=== PATIENT | female | born 1955 | race Caucasian/White ===

== ENCOUNTER 2017-12-27 11:54 | Emergency (ER) | payer OTHER ==
--- OUTSIDE RECORDS SUMMARY | 2017-12-27 11:57 | XMS REPORT | Clinical Summary ---
:1955 Author Organization [facility] Address [address] [place] [id number] Care Team Providers Name Role Phone Esteal Patel Primary Care Provider Allergies Not on File Current Medications No known medications Active Problems No known active problems Encounters Date Type Specialty Care Team Description 01/10/2017 Office Visit General Surgery Alli Meier Constipation, unspecified constipation type (Primary Dx); MD Emir Pancreas (digestive gland) works poorly; Esophageal abnormality; Small bowel obstruction; Nausea and vomiting, intractability of vomiting not specified, unspecified vomiting type after 12/26/2016 Social History Tobacco Use Types Packs/Day Years Used Date Never Assessed Sex Assigned at Date Recorded Not on file Last Filed Vital Signs Not on file Plan of Treatment Health Maintenance Due Date Last Done Comments PAP SMEAR 01/29/1976 COLONOSCOPY 2005 MAMMOGRAM 2005 ZOSTER VACCINE 2015 INFLUENZA VACCINE 04/09/2018 Results Not on fileafter 12/26/2016 Insurance Payer Benefit Plan / Group Subscriber ID Type Phone Address MEDICARE MEDICARE PART A AND B xxxxxxxxxx Medicare [place], [place] Home: [address] [phone] [place], [place] [phone]
--- NOTE | 2017-12-27 12:54 | EKG ---
Test Date: 2017-12-27 Test Time: 12:38:47 Steaming Machine Operator: SALONI MEASUREMENT RESULTS: Intervals: Rate: 59 GA: 172 QRSD: 86 QT: 434 QTc: 429 [place]: P: 63 GA: 172 QRS: -32 T: 15 INTERPRETIVE STATEMENTS: Sinus bradycardia Left axis deviation Abnormal ECG Compared to ECG 07/23/2016 16:35:04 Sinus rhythm no longer present Electronically Signed On 12-27-17 12:53:40 CDT by Pacheco Ruelas
[2017-12-27 13:14] LABS: Absolute Monocytes 0.3 K/uL (0.1-1.3); Absolute Neutrophil 3.2 K/uL (1.8-8.0); Basophils % 0.4 % (0-1.3); Hematocrit 44.6 % (36.0-45.0); Lymphocytes % 36.5 % (15.3-44.8); MCH 29.7 pg (27.0-35.0); MCV 86.1 fL (80-100); MPV 9.3 fL (7.6-11.3); Monocytes % 5.4 % (3.3-12.3); RBC Red Blood Cell Count 5.17 M/uL (3.86-4.86)
[2017-12-27 13:25] LABS: Potassium 3.4 mEq/L (3.6-5.0)
[2017-12-27 13:31] LABS: Albumin 4.5 g/dL (3.2-5.5); Bilirubin Direct 0.1 mg/dL (0-0.2); Bilirubin Total 0.4 mg/dL (0.3-1.2); Protein, Total 7.3 g/dL (6.0-8.3)
--- NOTE | 2017-12-27 13:33 | RAD REPORT ---
EXAM DESCRIPTION: Michael Single View12/27/2017 1:25 pm CLINICAL HISTORY: Chest pain COMPARISON: none FINDINGS: The lungs appear clear of acute infiltrate. The heart is normal size IMPRESSION: No acute abnormalities displayed
--- NOTE | 2017-12-27 16:42 | ER ---
Nurse's Notes [facility] Name: Carine Sheikh Age: 62 yrs Sex: Female : 1955 Arrival Date: 12/27/2017 Time: 11:58 Bed 7 Private MD: Diagnosis: Chest pain, unspecified Presentation: 12/27 12:22 Presenting complaint: Patient states: Worsening chest pain that radiates to left arm hb and mild SOB x 3 days. Transition of care: patient was not received from another setting of care. Onset of symptoms is unknown. Care prior to arrival: None. 12:22 Method Of Arrival: Ambulatory hb 12:22 Acuity: AZEEM 3 hb 14:26 Initial Sepsis Screen: Does the patient meet any 2 criteria? No. Patient's initial tw2 sepsis screen is negative. Does the patient have a suspected source of infection? No. Patient's initial sepsis screen is negative. Triage Assessment: 14:38 Respiratory: Reports shortness of breath Onset: The symptoms/episode began/occurred 2-3 tw2 days, the patient has mild shortness of breath. 14:39 General: Appears in no apparent distress. comfortable. tw2 Historical: - Allergies: 12:25 ACETAMINOPHEN; hb 12:25 butorphanol tartrate; hb 12:25 Ciprofloxacin; hb 12:25 Codeine; hb 12:25 Droperidol; hb 12:25 GUAIFENESIN; hb 12:25 hydrocodone bitartrate; hb 12:25 Iodine and Iodide Containing Products; hb 12:25 meperidine HCl; hb 12:25 Morphine; hb 12:25 PENICILLINS; hb 12:25 prochlorperazine Edisylate; hb 12:25 Prochlorperazine Maleate; hb 12:25 PROPOXYPHENE; hb 12:25 QUINOLONES; hb 12:25 Sulfa (Sulfonamide Antibiotics); hb - PMHx: 12:25 Anemia; barretts espophagus; BREAST CA; Hypertension; Hypokalemia; MRSA; SBO; hb - PSHx: 12:25 Thyroidectomy; Separation of liver and stomach; Lymph node removed from right side of hb neck; double mastectomy; partial removal of intestines and colon; - Immunization history:: Adult Immunizations up to date. - Social history:: Smoking status: Patient/guardian denies using tobacco. Screenin:39 Abuse screen: Denies threats or abuse. Nutritional screening: No deficits noted. tw2 Tuberculosis screening: No symptoms or risk factors identified. Fall Risk None identified. Assessment: 12:30 General: Appears in no apparent distress. well groomed, Behavior is calm, cooperative, tw2 appropriate for age. Pain: Pain radiates to left arm. Neuro: Level of Consciousness is awake, alert, obeys commands, Oriented to person, place, time, situation. Cardiovascular: Reports chest pain, Rhythm is regular. Respiratory: Airway is patent Respiratory effort is even, unlabored, Respiratory pattern is regular, symmetrical, Breath sounds are clear bilaterally. GI: No signs and/or symptoms were reported involving the gastrointestinal system. : No signs and/or symptoms were reported regarding the genitourinary system. EENT: No signs and/or symptoms were reported regarding the EENT system. Derm: No signs and/or symptoms reported regarding the dermatologic system. Musculoskeletal: Range of motion: intact in all extremities. 14:37 Reassessment: Patient appears in no apparent distress at this time. No changes from tw2 previously documented assessment. Patient and/or family updated on plan of care and expected duration. Pain level reassessed. Patient is alert, oriented x 3, equal unlabored respirations, skin warm/dry/pink. 15:30 Reassessment: Patient appears in no apparent distress at this time. No changes from tw2 previously documented assessment. Patient and/or family updated on plan of care and expected duration. Pain level reassessed. Patient is alert, oriented x 3, equal unlabored respirations, skin warm/dry/pink. 16:37 Reassessment: Patient appears in no apparent distress at this time. No changes from tw2 previously documented assessment. Patient and/or family updated on plan of care and expected duration. Pain level reassessed. Patient is alert, oriented x 3, equal unlabored respirations, skin warm/dry/pink. Vital Signs: 12:23 BP 130 / 76; Pulse 68; Resp 16; Temp 97.9; Pulse Ox 100% on R/A; Weight 72.57 kg; hb Height 5 ft. 2 in. (157.48 cm); Pain 6/10; 13:30 BP 153 / 89; Pulse 58; Resp 17; Pulse Ox 99% on R/A; tw2 14:37 BP 167 / 91 RL; Pulse 68; Resp 21; Pulse Ox 99% on R/A; tw2 15:30 BP 138 / 88; Pulse 58; Resp 17; Pulse Ox 99% on R/A; tw2 16:36 BP 146 / 93; Pulse 63; Resp 16; Pulse Ox 99% on R/A; tw2 16:58 BP 146 / 93; Pulse 66; Resp 20; Pulse Ox 99% on R/A; tw2 12:23 Body Mass Index 29.26 (72.57 kg, 157.48 cm) hb ED Course: 11:58 Patient arrived in ED. sb2 12:08 Daniel Blackburn MD is Attending Physician. kdr 12:23 Triage completed. hb 12:25 Arm band placed on right wrist. hb 12:29 Allan Duarte PA is PHCP. jr8 12:30 Bed in low position. Call light in reach. Adult w/ patient. youth nutritional monitor on. Pulse tw2 ox on. NIBP on. Warm blanket given. 12:45 Inserted saline lock: 24 gauge antecubital area, using aseptic technique. ,using tw2 aseptic technique. BRAEDEN Yanes Blood collected. 12:55 X-ray completed. Portable x-ray completed in exam room. Patient tolerated procedure ag1 well. 12:57 XRAY Chest (1 view) In Process Unspecified. EDMS 14:25 Dahiana Zuniga, RN is Primary Nurse. tw2 14:39 No provider procedures requiring assistance completed. tw2 16:08 Troponin (emerg Dept Use Only) Sent. tw2 16:59 IV discontinued, intact, bleeding controlled, No redness/swelling at site. Pressure tw2 dressing applied. Administered Medications: No medications were administered Outcome: 16:41 Discharge ordered by . jr8 16:59 Discharged to home ambulatory, with significant other. tw2 16:59 Condition: stable 16:59 Discharge instructions given to patient, significant other, Instructed on discharge instructions, follow up and referral plans. Demonstrated understanding of instructions, follow-up care. 17:04 Patient left the ED. tw2 Signatures: Dispatcher [employer] EDNM Daniel Blackburn MD MD [facility] Allan Duarte PA PA jr8 Marguerite Nielsen ag1 Ernestine Burroughs RN RN Dahiana Zuniga RN RN tw2 Gladys Rudolph sb2 Corrections: (The following items were deleted from the chart) 14:39 14:38 Respiratory: Reports shortness of breath the patient has mild shortness of breath tw2 tw2
--- NOTE | 2017-12-27 16:42 | EDPHYS ---
Physician Documentation [facility] Name: Carine Sheikh Age: 62 yrs Sex: Female : 1955 Arrival Date: 12/27/2017 Time: 11:58 Bed 7 Private MD: ED Physician Daniel Blackburn HPI: 12/27 13:30 This 62 yrs old Female presents to ER via Ambulatory with complaints of chest jr8 pain with radiation. Historical: - Allergies: 12:25 ACETAMINOPHEN; hb 12:25 butorphanol tartrate; hb 12:25 Ciprofloxacin; hb 12:25 Codeine; hb 12:25 Droperidol; hb 12:25 GUAIFENESIN; hb 12:25 hydrocodone bitartrate; hb 12:25 Iodine and Iodide Containing Products; hb 12:25 meperidine HCl; hb 12:25 Morphine; hb 12:25 PENICILLINS; hb 12:25 prochlorperazine Edisylate; hb 12:25 Prochlorperazine Maleate; hb 12:25 PROPOXYPHENE; hb 12:25 QUINOLONES; hb 12:25 Sulfa (Sulfonamide Antibiotics); hb - PMHx: 12:25 Anemia; barretts espophagus; BREAST CA; Hypertension; Hypokalemia; MRSA; SBO; hb - PSHx: 12:25 Thyroidectomy; Separation of liver and stomach; Lymph node removed from right side of hb neck; double mastectomy; partial removal of intestines and colon; - Immunization history:: Adult Immunizations up to date. - Social history:: Smoking status: Patient/guardian denies using tobacco. ROS: 16:40 Eyes: Negative for injury, pain, redness, and discharge, ENT: Negative for injury, jr8 pain, and discharge, Neck: Negative for injury, pain, and swelling, Respiratory: Negative for shortness of breath, cough, wheezing, and pleuritic chest pain, Abdomen/GI: Negative for abdominal pain, nausea, vomiting, diarrhea, and constipation, Back: Negative for injury and pain, MS/Extremity: Negative for injury and deformity, Skin: Negative for injury, rash, and discoloration, Neuro: Negative for headache, weakness, numbness, tingling, and seizure. 16:40 Cardiovascular: Positive for chest pain, Negative for edema, orthopnea, palpitations, paroxysmal nocturnal dyspnea. Exam: 16:40 Eyes: Pupils equal round and reactive to light, extra-ocular motions intact. Lids and jr8 lashes normal. Conjunctiva and sclera are non-icteric and not injected. Cornea within normal limits. Periorbital areas with no swelling, redness, or edema. ENT: Nares patent. No nasal discharge, no septal abnormalities noted. Tympanic membranes are normal and external auditory canals are clear. Oropharynx with no redness, swelling, or masses, exudates, or evidence of obstruction, uvula midline. Mucous membranes moist. Neck: Trachea midline, no thyromegaly or masses palpated, and no cervical lymphadenopathy. Supple, full range of motion without nuchal rigidity, or vertebral point tenderness. No Meningismus. Cardiovascular: Regular rate and rhythm with a normal S1 and S2. No gallops, murmurs, or rubs. Normal PMI, no JVD. No pulse deficits. Respiratory: Lungs have equal breath sounds bilaterally, clear to auscultation and percussion. No rales, rhonchi or wheezes noted. No increased work of breathing, no retractions or nasal flaring. Abdomen/GI: Soft, non-tender, with normal bowel sounds. No distension or tympany. No guarding or rebound. No evidence of tenderness throughout. Back: No spinal tenderness. No costovertebral tenderness. Full range of motion. Skin: Warm, dry with normal turgor. Normal color with no rashes, no lesions, and no evidence of cellulitis. MS/ Extremity: Pulses equal, no cyanosis. Neurovascular intact. Full, normal range of motion. Neuro: Awake and alert, GCS 15, oriented to person, place, time, and situation. Cranial nerves II-XII grossly intact. Motor strength 5/5 in all extremities. Sensory grossly intact. Cerebellar exam normal. Normal gait. Vital Signs: 12:23 BP 130 / 76; Pulse 68; Resp 16; Temp 97.9; Pulse Ox 100% on R/A; Weight 72.57 kg; hb Height 5 ft. 2 in. (157.48 cm); Pain 6/10; 13:30 BP 153 / 89; Pulse 58; Resp 17; Pulse Ox 99% on R/A; tw2 14:37 BP 167 / 91 RL; Pulse 68; Resp 21; Pulse Ox 99% on R/A; tw2 15:30 BP 138 / 88; Pulse 58; Resp 17; Pulse Ox 99% on R/A; tw2 16:36 BP 146 / 93; Pulse 63; Resp 16; Pulse Ox 99% on R/A; tw2 16:58 BP 146 / 93; Pulse 66; Resp 20; Pulse Ox 99% on R/A; tw2 12:23 Body Mass Index 29.26 (72.57 kg, 157.48 cm) hb MDM: 12:37 Patient medically screened. 8 16:40 Data reviewed: vital signs, nurses notes, lab test result(s), EKG, radiologic studies, jr8 plain films, and as a result, I will discharge patient. Data interpreted: Pulse oximetry: on room air is 99 %. Interpretation: normal. Counseling: I had a detailed discussion with the patient and/or guardian regarding: the historical points, exam findings, and any diagnostic results supporting the discharge/admit diagnosis, lab results, radiology results, the need for outpatient follow up, a stevedoring supervisor, to return to the emergency department if symptoms worsen or persist or if there are any questions or concerns that arise at home. 16:40 Special discussion: Based on the patient's history, exam, and Dx evaluation, there is jr8 no indication for emergent intervention or inpatient Tx. It is understood by the patient/guardian that if the Sx's persist or worsen they need to return immediately for re-evaluation. 12/27 12:37 Order name: Basic Metabolic Panel [facility] 12/27 12:37 Order name: BNP [facility] 12/27 12:37 Order name: CBC with Diff 12/27 12:37 Order name: LFT's; Complete Time: 13:44 [facility] 12/27 12:37 Order name: Magnesium; Complete Time: 13:44 [facility] 12/27 12:37 Order name: PT-INR; Complete Time: 13:22 [facility] 12/27 12:37 Order name: Troponin (emerg Dept Use Only); Complete Time: 13:44 [facility] 12/27 12:37 Order name: XRAY Chest (1 view); Complete Time: 13:44 [facility] 12/27 12:37 Order name: EKG; Complete Time: 12:37 [facility] 12/27 12:37 Order name: Cardiac monitoring; Complete Time: 16:09 [facility] 12/27 12:37 Order name: Basic Metabolic Panel; Complete Time: 13:44 [facility] 12/27 12:37 Order name: BNP B-Type Natriuretic Peptide; Complete Time: 13:44 [facility] 12/27 12:37 Order name: CBC with Automated Diff; Complete Time: 13:22 [facility] 12/27 16:04 Order name: Troponin (emerg Dept Use Only); Complete Time: 16:40 [facility] 12/27 12:37 Order name: EKG - Nurse/Tech; Complete Time: 16:38 [facility] 12/27 12:37 Order name: IV Saline Lock; Complete Time: 16:20 [facility] 12/27 12:37 Order name: Labs collected and sent; Complete Time: 16:20 [facility] 12/27 12:37 Order name: O2 Per Protocol; Complete Time: 12:54 [facility] 12/27 12:37 Order name: O2 Sat Monitoring; Complete Time: 12:54 jr Administered Medications: No medications were administered Disposition: 12/27/17 16:41 Discharged to Home. Impression: Chest pain, unspecified. - Condition is Stable. - Discharge Instructions: Nonspecific Chest Pain. - Medication Reconciliation Form, Thank You Letter, Antibiotic Education, Prescription Opioid Use form. - Follow up: Private Physician; When: 1 - 2 days; Reason: Recheck today's complaints, Continuance of care, Re-evaluation by your physician. - Problem is new. - Symptoms have improved. Addendum: 01/11/2018 19:47 Co-signature as Attending Physician, Daniel Blackburn MD I agree with the assessment and k dr plan of care. Signatures: Dispatcher [employer] [facility] Daniel Blackburn MD MD [facility] Allan Duarte PA PA jr8 Ernestine Burroughs, RN RN Dahiana Mejia RN RN tw2 Corrections: (The following items were deleted from the chart) 12/27 17:04 16:41 12/27/2017 16:41 Discharged to Home. Impression: Chest pain, unspecified. tw2 Condition is Stable. Forms are Medication Reconciliation Form, Thank You Letter, Antibiotic Education, Prescription Opioid Use. Follow up: Private Physician; When: 1 - 2 days; Reason: Recheck today's complaints, Continuance of care, Re-evaluation by your physician. Problem is new. Symptoms have improved. jr8
[2017-12-27 17:09] VITALS: TEMP 97.9
[2017-12-27 17:10] VITALS: O2SAT 99
[2017-12-27 17:14] VITALS: BP 146/93
== END 2017-12-27 17:04 | disposition home or self-care (01) ==
LOC: ER 11:54
DX: R07.9 Chest pain, unspecified (principal); Z88.6 Allergy status to analgesic agent; Z88.0 Allergy status to penicillin; Z88.2 Allergy status to sulfonamides; Z88.1 Allergy status to other antibiotic agents; Z91.09 Other allergy status, other than to drugs and biological substances; Z88.8 Allergy status to other drugs, medicaments and biological substances
CPT/HCPCS: 36415; 71045; 80048; 80076; 83735; 83880; 84484; 85025; 85610; 93005; 99284

== ENCOUNTER 2018-10-23 12:15 | Day surgery (SDC) | payer OTHER ==
[2018-10-22 16:16] LABS: Absolute Lymphocytes (CBC) 1.5 K/uL (0.7-4.9); Absolute Monocytes 0.4 K/uL (0.1-1.3); Absolute Neutrophil 4.4 K/uL (1.8-8.0); Basophils % 0.3 % (0-1.3); Eosinophils % 1.3 % (0-4.4); Hematocrit 40.6 % (36.0-45.0); Lymphocytes % 23.1 % (15.3-44.8); MPV 9.4 fL (7.6-11.3); Monocytes % 5.8 % (3.3-12.3); RBC Red Blood Cell Count 4.63 M/uL (3.86-4.86)
[2018-10-22 16:21] LABS: Urine Appearance CLEAR; Urine Bilirubin NEGATIVE (NEG); Urine Blood 1+ (NEG); Urine Color YELLOW; Urine Glucose NEGATIVE (NEG); Urine Protein NEGATIVE (NEG); Urine Specific Gravity 1.015 (1.005-1.030); Urine Urobilinogen 0.2 mg/dL (0.2-1.0); Urine pH 5.5 (5.0-7.0)
--- NOTE | 2018-10-22 16:26 | RAD REPORT ---
EXAM DESCRIPTION: RAD - Chest Pa And Lat (2 Views) - 10/22/2018 4:21 pm CLINICAL HISTORY: Preop for surgery Chest pain. COMPARISON: Chest Single View dated 12/27/2017; Abdomen 1 View (KUB) dated 12/12/2016; Abdomen 1 View ( KUB) dated 11/16/2016; Abdomen 1 View (KUB) dated 11/14/2016 FINDINGS: The lungs are clear. The heart is normal in size. No displaced fractures. Left axillary no de dissection clips. IMPRESSION: No acute or concerning finding suspected.
[2018-10-22 16:37] LABS: Urine Microscopic Reflex ORDER UMIC
[2018-10-22 16:50] LABS: Urine Bacteria <20 /HPF (<20); Urine Culture Reflex Order NOT NEEDED
--- NOTE | 2018-10-22 20:32 | EKG ---
Test Date: 2018-10-22 Test Time: 16:05:14 Founder And Ceo: JACE MEASUREMENT RESULTS: Intervals: Rate: 66 W[place]: 168 QRSD: 80 QT: 422 QTc: 442 [place]: P: 59 WY: 168 QRS: -36 T: 32 INTERPRETIVE STATEMENTS: Normal sinus rhythm Left axis deviation Abnormal ECG Compared to ECG 12/27/2017 12:38:47 Sinus bradycardia no longer present Electronically Signed On 10-22-18 20:31:32 STRATEGIC SOURCING CONSULTANT by Pacheco Ruelas
--- OUTSIDE RECORDS SUMMARY | 2018-10-23 12:17 | XMS REPORT | Clinical Summary ---
:1955 Author Organization [facility] Address [address] [place] [address] Care Team Providers Name Role Phone Estela Patel Primary Care Provider Allergies Not on File Medications No known medications Active Problems No known active problems Encounters Date Type Specialty Care Team Description 03/24/2018 Orders Only Orthopedic Surgery Adriana Sebastian MA Acute pain of left knee (Primary Dx) after 10/22/2017 Social History Tobacco Use Types Packs/Day Years Used Date Never Assessed Sex Assigned at Date Recorded Not on file Job Start Date Occupation Industry Not on file Not on file Not on file Travel History Travel Start Travel End No recent travel history available. Last Filed Vital Signs Not on file Plan of Treatment Health Maintenance Due Date Last Done Comments CERVICAL CANCER SCREENING 01/29/1976 BREAST CANCER SCREENING 2005 COLON CANCER SCREENING 2005 SHINGLES VACCINES (1 of 2) 2005 INFLUENZA VACCINE 04/09/2018 Results Not on fileafter 10/22/2017 Insurance Payer Benefit Plan / Group Subscriber ID Type Phone Address MEDICARE MEDICARE PART A AND B xxxxxxxxxx Medicare [place], [place] Advance Directives Patient has advance care planning documents on file. For more information, please contact:[id number] [place] [address]
[2018-10-23] MEDS ORDERED: CIPROFLOXACIN 400mg IV 400 MG/200 ML BAG IV ONE (12:30)
[2018-10-23] MEDS ORDERED: Ringers Lactate 1,000 ML IV ONE (12:30)
[2018-10-23] MEDS ORDERED: PROPOFOL 200 MG/20 ML VIAL IV ONE (12:41)
[2018-10-23] MEDS ORDERED: MIDAZOLAM HCL 2 MG/2 ML INJ ONE (12:41)
[2018-10-23] MEDS ORDERED: FENTANYL CITR 100 MCG/2 ML ONE ×2 (12:42→14:00)
[2018-10-23] MEDS ORDERED: LIDOCAINE 1% MPF 2 ML AMPULE ONE (12:43)
[2018-10-23] MEDS ORDERED: NA CIT/CITRIC AC 30 ML ORAL UDC ONE (12:47)
[2018-10-23] MEDS ORDERED: FAMOTIDINE 20 MG/2 ML VIAL IV ONE (13:04)
[2018-10-23 15:00] VITALS: BP 155/68; TEMP 98.1; O2SAT 96
--- NOTE | 2018-10-24 07:45 | OP ---
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 Procedure Performed: Excision, recurrent ganglion. Anesthesia: General. Procedure In Detail: After satisfactory induction of general anesthesia, left hand was prepped. Dry sterile drapes applied in the usual manner. Arm was elevated, exsanguinated with Esmarch, and tourn iquet was inflated to 250 mmHg. outlined a V-shaped incision. Dissection proceeded down o albert the flexor surface of the right middle finger ulnar side. the digital nerve and arter y were identified and draped over the tumor. They were retracted ulnarly and the tumor radially. Th e tumor was taken down to the origin of the flexor sheath. Part of the flexor sheath was removed wit h the tumor. was limited. Tourniquet released. Electrocautery was used for hemostasis. Wound closed with 4-0 Prolene in vertical mattress and dressed with Xeroform, 2-inch Teresa. The pat ient tolerated the procedure well and returned to recovery. ARUNA/JOSE Voice ID: [id number] Report ID: [id number]
== END 2018-10-23 15:25 | disposition home or self-care (01) ==
LOC: OR 12:15
PROVIDERS: ATTEND Specialist
PROC: 0LB70ZZ Excision of Right Hand Tendon, Open Approach (ICD-10-PCS; principal; 2018-10-23 13:30)
DX: M67.441 Ganglion, right hand (principal); I10 Essential (primary) hypertension; E07.9 Disorder of thyroid, unspecified; K21.9 Gastro-esophageal reflux disease without esophagitis
CPT/HCPCS: 26160; 93005; 85025; 36415; 88304; 71046; J2704; J2250; J3010 ×2; J2001; J0744; 81003; 81015

== ENCOUNTER 2018-11-11 08:16 | Day surgery (SDC) | payer OTHER ==
[~2018-11-11 08:16] MED LIST: FENTANYL CITR 250 MCG/5 ML ONE; GLYCOPYRROLATE 0.2 MG/ML SYR ONE; LIDOCAINE 2% MPF 5 ML VIAL ONE; MIDAZOLAM HCL 2 MG/2 ML INJ ONE; NEOSTIGMINE 1 MG/ML -10 ML VIAL ONE; PROPOFOL 200 MG/20 ML VIAL IV ONE; ROCURONIUM 50 MG/5 ML VIAL IV ONE
--- OUTSIDE RECORDS SUMMARY | 2018-11-11 08:20 | XMS REPORT | Clinical Summary ---
:1955 Author Organization [facility] Address [address] [place] [address] Care Team Providers Name Role Phone Estela Patel Primary Care Provider Allergies Not on File Medications No known medications Active Problems No known active problems Encounters Date Type Specialty Care Team Description 03/24/2018 Orders Only Orthopedic Surgery Adriana Sebastian MA Acute pain of left knee (Primary Dx) after 11/10/2017 Social History Tobacco Use Types Packs/Day Years [...] 2005 COLON CANCER SCREENING 2005 SHINGLES VACCINES (#1) 2005 INFLUENZA VACCINE 04/09/2018 Results Not on fileafter 11/10/2017 Insurance Payer Benefit Plan / Group Subscriber ID Type Phone Address MEDICARE MEDICARE PART A AND B xxxxxxxxxx Medicare [place], [place] Advance Directives Patient has advance care planning documents on file. For more information, please contact:[place] [phone] [place] [address]
[2018-11-11 08:28] LABS: Absolute Lymphocytes (CBC) 1.4 K/uL (0.7-4.9); Absolute Monocytes 0.3 K/uL (0.1-1.3); Basophils % 0.4 % (0-1.3); Eosinophils % 1.5 % (0-4.4); Hematocrit 44.1 % (36.0-45.0); Lymphocytes % 28.6 % (15.3-44.8); MPV 9.3 fL (7.6-11.3); RBC Red Blood Cell Count 5.11 M/uL (3.86-4.86)
[2018-11-11 08:29] LABS: Urine Appearance CLEAR; Urine Bilirubin NEGATIVE (NEG); Urine Blood 1+ (NEG); Urine Color YELLOW; Urine Glucose NEGATIVE (NEG); Urine Protein NEGATIVE (NEG); Urine Urobilinogen 0.2 mg/dL (0.2-1.0); Urine pH 6.5 (5.0-7.0)
[2018-11-11 08:31] LABS: Urine Microscopic Reflex ORDER UMIC
[2018-11-11] MEDS ORDERED: CLINDAMYCIN INJ 300 MG in NA CHLORIDE 0.9% 50 ML IV ONE (08:45)
[2018-11-11] MEDS ORDERED: Ringers Lactate 1,000 ML IV ONE ×2 (08:53→12:27)
[2018-11-11 08:55] LABS: Urine Bacteria <20 /HPF (<20)
[2018-11-11 08:56] LABS: Urine Amorphous Sediment 1+ /HPF (NONE SEEN); Urine Culture Reflex Order NOT NEEDED
[2018-11-11] MEDS ORDERED: NA CIT/CITRIC AC 30 ML ORAL UDC ONE (09:19)
[2018-11-11] MEDS ORDERED: SCOPOLAMINE HYDROBROMIDE PATCH TD ONE (09:21)
[2018-11-11] MEDS ORDERED: FAMOTIDINE 20 MG/2 ML VIAL IV ONE (10:00)
[2018-11-11] MEDS ORDERED: NS 0.9% VIAL 20 ML ONE (10:32)
[2018-11-11] MEDS ORDERED: GENTAMICIN SULF 80 MG/2ML INJ ONE (10:33)
[2018-11-11] MEDS ORDERED: BACITRACIN 50000 UNIT VIAL ONE (10:33)
[2018-11-11] MEDS ORDERED: CEFAZOLIN SODIUM 1 GM/VIAL ONE (10:33)
[2018-11-11] MEDS: FENTANYL CITR 100 MCG/2 ML ONE ×2 (14:18→14:35)
[2018-11-11] MEDS ORDERED: Mastisol Adhesive Liq ONE (14:23)
[2018-11-11] MEDS ORDERED: KETOROLAC 30 MG/ML INJ ONE (14:30)
[2018-11-11] MEDS ORDERED: ACETAMINOPHEN 500 MG TAB ONE (16:58)
[2018-11-11 17:16] VITALS: BP 115/46; TEMP 99.3; O2SAT 95
--- NOTE | 2018-11-12 00:58 | OP ---
Surgeon: Be Montoya MD Assistant Purchasing Manager: Paulo. Preoperative Diagnosis: Status post breast reconstruction. Postoperative Diagnosis: Status post breast reconstruction. Procedure Performed: Revision of breast reconstruction with lift. Anesthesia: General. Procedure In Detail: After satisfactory induction of general Anesthesia, the abdomen and the breasts were prepped with Betadine scrub and Betadine paint. Dry sterile drapes were applied in the usual m ben. The right breast was approached first. A transverse and curvilinear inferior incisions were made with a #10 blade. The left side was done in an identical manner. Intervening skin was de-epith elialized with dermabrader or EpiCut. Then, the dissection proceeded down in the transverse incision . Flap was thinned to 1 cm thickness and elevated toward the sternum, clavicle, and anterior axillar y line. This was done on both sides. Then, inferior incision was made with a scalpel. The interven ing skin was rotated into a cone using 2-0 PDS sutures interrupted. After this was done, straps were elevated at 12 o'clock, 1:30 o'clock, and 3 o'clock positions on the right breast with mirror image on left. The straps were then woven in and out of pectoralis major muscle, back to the base of the c one, back to the pectoralis major muscle, and then eventually tied to themselves at the base of the c one with 2-0 PDS. This was done for the 12 o'clock and 1:30 straps. The 3 o'clock strap was sewn ov er the sternum with 2-0 Ethibond. The wound was irrigated with antibiotic solution. Electrocautery was used for hemostasis. The dog ears were resected laterally and wound closed in layers after a #10 PRERNA was brought out of the axilla and sewn in place with 2-0 silk. Later closure consisted of 3-0 Vi cryl subcu, 3-0 PDS running subcuticular tied in the vertical meridian of the breast. Dressings cons isted of tincture of benzoin, Steri-Strips, 5x5s, fluffs, and Chito wrap. The amount of tissue removed from the right breast was 15 g and left breast 92 g. The patient tolerated the procedure well and r eturned to Recovery. ARUNA/JOSE Voice ID: [id number] Report ID: [id number]
== END 2018-11-11 17:21 | disposition home or self-care (01) ==
LOC: OR 08:16
PROVIDERS: ATTEND Specialist
PROC: 0KXK0Z6 Transfer Right Abdomen Muscle, Transverse Rectus Abdominis Myocutaneous Flap, Open Approach (ICD-10-PCS; 2018-11-11)
PROC: 0KXL0Z6 Transfer Left Abdomen Muscle, Transverse Rectus Abdominis Myocutaneous Flap, Open Approach (ICD-10-PCS; principal; 2018-11-11 09:00)
DX: N65.0 Deformity of reconstructed breast (principal)
CPT/HCPCS: 85025; 36415; 88305; 19367; J2704; J2710; J1580; J2250; J3010 ×2; J0690; 81003; 81015

== ENCOUNTER 2018-11-25 08:49 | Day surgery (SDC) | payer OTHER ==
--- OUTSIDE RECORDS SUMMARY | 2018-11-25 08:53 | XMS REPORT | Clinical Summary ---
:1955 Author Organization [facility] Address [address] [place] [address] Care Team Providers Name Role Phone Estela Patel Primary Care Provider Allergies Not on File Medications No known medications Active Problems No known active problems Encounters Date Type Specialty Care Team Description 03/24/2018 Orders Only Orthopedic Surgery Adriana Sebastian MA Acute pain of left knee (Primary Dx) after 11/24/2017 Social History Tobacco Use Types Packs/Day Years [...] INFLUENZA VACCINE 04/09/2018 Results Not on fileafter 11/24/2017 Insurance Payer Benefit Plan / Group Subscriber ID Type Phone Address MEDICARE MEDICARE PART A AND B xxxxxxxxxx Medicare [place], [place] Advance Directives Patient has advance care planning documents on file. For more information, please contact:[place] [id number] [place] [address]
[2018-11-25 09:00] LABS: Absolute Lymphocytes (CBC) 1.7 K/uL (0.7-4.9); Absolute Monocytes 0.4 K/uL (0.1-1.3); Absolute Neutrophil 4.9 K/uL (1.8-8.0); Basophils % 0.7 % (0-1.3); Eosinophils % 6.3 % (0-4.4); Lymphocytes % 22.4 % (15.3-44.8); MPV 9.3 fL (7.6-11.3); Monocytes % 4.9 % (3.3-12.3)
[2018-11-25] MEDS ORDERED: CLINDAMYCIN INJ 300 MG in NA CHLORIDE 0.9% 50 ML IV SCH (09:00)
[2018-11-25] MEDS ORDERED: PROPOFOL 200 MG/20 ML VIAL IV ONE (09:05)
[2018-11-25] MEDS ORDERED: LIDOCAINE 1% MPF 5 ML VIAL ONE (09:06)
[2018-11-25] MEDS ORDERED: FENTANYL CITR 100 MCG/2 ML ONE (09:06)
[2018-11-25] MEDS ORDERED: MIDAZOLAM HCL 2 MG/2 ML INJ ONE (09:06)
[2018-11-25] MEDS ORDERED: Ringers Lactate 1,000 ML IV ONE (09:14)
[2018-11-25] MEDS ORDERED: KETOROLAC 30 MG/ML INJ ONE (10:32)
[2018-11-25] MEDS ORDERED: ONDANSETRON 4 MG/2 ML VIAL ONE (10:33)
[2018-11-25] MEDS ORDERED: DEXAMETHASONE 4 MG/ML VIAL ONE (10:34)
[2018-11-25 11:47] VITALS: BP 113/65; TEMP 98.9; O2SAT 100
--- NOTE | 2018-11-25 21:46 | OP ---
Surgeon: Be Montoya MD Software Reverse Engineer: Paulo. Preoperative Diagnosis: Open wound of the left breast. Postoperative Diagnosis: Open wound of the left breast. Procedure: Debridement of skin and subcutaneous tissue. Anesthesia: General. Procedure In Detail: After satisfactory induction of general anesthesia, the chest was prepped with DuraPrep. Dry sterile drapes were applied in the usual manner. Elliptical incision was made over th e open wound of the left breast at the 6 o'clock position. Scalpel was used with no pus encountered. Cultures were taken. There was a suture present abraded and this was removed. The wound was jet l avaged, irrigated with saline solution and then packed with Nu Gauze plains, 4x4, and tape. The kem ent tolerated the procedure well and returned to recovery. ARUNA/JOSE Voice ID: [id number] Report ID: [id number]
== END 2018-11-25 11:49 | disposition home or self-care (01) ==
LOC: OR 08:49
PROVIDERS: ATTEND Specialist
PROC: 0HBUXZZ (ICD-10-PCS; principal; 2018-11-25 09:00)
DX: N61.1 Abscess of the breast and nipple (principal); S21.002A Unspecified open wound of left breast, initial encounter; X58.XXXA Exposure to other specified factors, initial encounter
CPT/HCPCS: 87070; 85025; 36415; 87205; 88304; 87075; 87077; 87186; 11042; J2704; J2250; J3010; J2405; 88305

== ENCOUNTER 2018-12-01 09:43 | Day surgery (SDC) | payer OTHER ==
--- OUTSIDE RECORDS SUMMARY | 2018-12-01 09:45 | XMS REPORT | Clinical Summary ---
:1955 Author Organization [facility] Address [address] [place] [address] Care Team Providers Name Role Phone Estela Patel Primary Care Provider Allergies Not on File Medications No known medications Active Problems No known active problems Encounters Date Type Specialty Care Team Description 03/24/2018 Orders Only Orthopedic Surgery Adriana Sebastian MA Acute pain of left knee (Primary Dx) after 11/30/2017 Social History Tobacco Use Types Packs/Day Years [...] INFLUENZA VACCINE 04/09/2018 Results Not on fileafter 11/30/2017 Insurance Payer Benefit Plan / Group Subscriber ID Type Phone Address MEDICARE MEDICARE PART A AND B xxxxxxxxxx Medicare [place], [place] Advance Directives Patient has advance care planning documents on file. For more information, please contact:[phone] [place] [address]
[2018-12-01] MEDS ORDERED: CEFAZOLIN/SWI 1gm 1 GM/10 ML SYR ONE (09:58)
[2018-12-01] MEDS ORDERED: Ringers Lactate 1,000 ML IV ONE (09:58)
[2018-12-01] MEDS ORDERED: PROPOFOL 200 MG/20 ML VIAL IV ONE (10:03)
[2018-12-01] MEDS ORDERED: MIDAZOLAM HCL 2 MG/2 ML INJ ONE (10:03)
[2018-12-01] MEDS ORDERED: FENTANYL CITR 100 MCG/2 ML ONE (10:03)
[2018-12-01] MEDS ORDERED: LIDOCAINE 1% MPF 5 ML VIAL ONE (10:03)
[2018-12-01] MEDS ORDERED: ONDANSETRON 4 MG/2 ML VIAL ONE (11:03)
[2018-12-01 11:51] VITALS: BP 110/85; TEMP 98.7; O2SAT 99
--- NOTE | 2018-12-02 06:31 | OP ---
Surgeon: Be Montoya MD Preoperative Diagnosis: Open wound to right and left breast. Postoperative Diagnosis: Open wound to right and left breast. Procedure Performed: Debridement of skin and subcutaneous tissue. Anesthesia: General. Description Of Procedure: After satisfactory induction of general anesthesia, chest was prepped in t he usual manner. Dry sterile drapes applied in usual manner. A scalpel was used to excise skin and subcutaneous tissue. The right breast and the left breast wounds were then curetted. Open wound to right breast is about 5 cm x 1 cm, the left breast is about 4 x 1 cm. Each was about 1 to 2 cm deep. After jet lavage with saline solution, the wound was packed with Nu Gauze quarter-inch and 4 x 4 an d tape. The patient tolerated the procedure well and returned to recovery. MONIKA Voice ID: [id number] Report ID: [id number]
== END 2018-12-01 12:24 | disposition home or self-care (01) ==
LOC: OR 09:43
PROVIDERS: ATTEND Specialist
PROC: 0JD60ZZ Extraction of Chest Subcutaneous Tissue and Fascia, Open Approach (ICD-10-PCS; principal; 2018-12-01 10:00)
DX: S21.002A Unspecified open wound of left breast, initial encounter (principal); S21.001A Unspecified open wound of right breast, initial encounter; I10 Essential (primary) hypertension; E07.9 Disorder of thyroid, unspecified; K21.9 Gastro-esophageal reflux disease without esophagitis; Z85.3 Personal history of malignant neoplasm of breast; Z88.0 Allergy status to penicillin; Z88.2 Allergy status to sulfonamides; Z88.3 Allergy status to other anti-infective agents; Z88.6 Allergy status to analgesic agent; Z88.8 Allergy status to other drugs, medicaments and biological substances
CPT/HCPCS: 11042; J2704; J2250; J3010; J0690; J2405

== ENCOUNTER 2018-12-04 08:36 | Inpatient (IN) | payer OTHER ==
--- OUTSIDE RECORDS SUMMARY | 2018-12-04 08:39 | XMS REPORT | Clinical Summary ---
:1955 Author Organization [facility] Address [address] [place] [address] Care Team Providers Name Role Phone Estela Patel Primary Care Provider Allergies Not on File Medications No known medications Active Problems No known active problems Encounters Date Type Specialty Care Team Description 03/24/2018 Orders Only Orthopedic Surgery Adriana Sebastian MA Acute pain of left knee (Primary Dx) after 12/03/2017 Social History Tobacco Use Types Packs/Day Years [...] INFLUENZA VACCINE 04/09/2018 Results Not on fileafter 12/03/2017 Insurance Payer Benefit Plan / Group Subscriber ID Type Phone Address MEDICARE MEDICARE PART A AND B xxxxxxxxxx Medicare [place], [place] Advance Directives Patient has advance care planning documents on file. For more information, please contact:[phone] [place] [address]
[2018-12-04] MEDS ORDERED: Ringers Lactate 1,000 ML IV ONE (09:00)
[2018-12-04] MEDS ORDERED: NA CIT/CITRIC AC 30 ML ORAL UDC ONE (09:09)
[2018-12-04] MEDS ORDERED: PROPOFOL 200 MG/20 ML VIAL IV ONE (09:12)
[2018-12-04] MEDS ORDERED: GLYCOPYRROLATE 0.2 MG/ML SYR ONE (09:12)
[2018-12-04] MEDS ORDERED: LIDOCAINE 2% MPF 5 ML VIAL ONE (09:12)
[2018-12-04] MEDS ORDERED: FENTANYL CITR 100 MCG/2 ML ONE (09:12)
[2018-12-04] MEDS ORDERED: CLINDAMYCIN 900MG/D5W 0 MG/0 ML IVPB IV ONE (09:12)
[2018-12-04] MEDS ORDERED: ROCURONIUM 50 MG/5 ML VIAL IV ONE (09:13)
[2018-12-04] MEDS ORDERED: ONDANSETRON 4 MG/2 ML VIAL ONE (09:15)
[2018-12-04] MEDS ORDERED: CLINDAMYCIN INJ 300 MG in NA CHLORIDE 0.9% 50 ML IV ONE (09:15)
[2018-12-04] MEDS ORDERED: NEOSTIGMINE 1 MG/ML -10 ML VIAL ONE (09:16)
[2018-12-04] MEDS ORDERED: MIDAZOLAM HCL 2 MG/2 ML INJ ONE (09:16)
[2018-12-04] MEDS ORDERED: Mastisol Adhesive Liq ONE (09:46)
[2018-12-04 11:47] VITALS: BMI 23.8
[2018-12-04] MEDS: CLINDAMYCIN INJ 300 MG in NA CHLORIDE 0.9% 50 ML IV SCH ×3 (12:53→23:41)
[2018-12-04] MEDS ORDERED: MECLIZINE HCL 25 MG PO PRN (18:02)
--- NOTE | 2018-12-04 18:11 | P.CNS ---
Date of Consult: 12/04/18 Reason for Consult: Medication management Requesting Physician: Be Montoya Chief Complaint: S/p I&D for breast abscess. History of Present Illness: This is a 63 year old female with a PMH of breast cancer, HTN, CHF and chronic back pain along with multiple surgeries in the past admitted after a breast abscess I&D. Patient has an extensive surgical history and hx of breast cancer with rejected implants. SHe recently developed an abscess on her right breast, saw Dr. Montoya in his clinic and I&D was done with wound vac placement. At the time of my exam, pt was AAOx3, in no acute distress and wound vac in place. She was hemodynamically stable. We were consulted for medical management. Allergies droperidol Allergy (Severe, Verified 11/25/18 08:51) Anaphylaxis Iodine and Iodide Containing Produc Allergy (Severe, Verified 11/25/18 08:51) Anaphylaxis acetaminophen [From Vicodin] Allergy (Verified 12/04/18 08:23) Rash butorphanol Allergy (Verified 12/04/18 08:23) Rash ciprofloxacin Allergy (Verified 12/04/18 08:23) Rash codeine Allergy (Verified 12/04/18 08:23) Rash guaifenesin Allergy (Verified 12/04/18 08:23) Nausea/Vomiting hydrocodone bitartrate [From Vicodin] Allergy (Verified 12/04/18 08:23) Nausea/Vomiting/rash meperidine HCl [From Demerol] Allergy (Verified 12/04/18 08:23) Hives/Rash Penicillins Allergy (Verified 12/04/18 08:23) Rash prochlorperazine edisylate [From Compazine] Allergy (Verified 12/04/18 08:23) Hives/Rash prochlorperazine maleate [From Compazine] Allergy (Verified 12/04/18 08:23) Hives/Rash propoxyphene Allergy (Verified 12/04/18 08:23) Nausea/Vomiting Quinolones Allergy (Verified 12/04/18 08:23) Nausea/Vomiting/Rash Sulfa (Sulfonamide Antibiotics) Allergy (Verified 12/04/18 08:23) Nausea/Vomiting Home Medications: Buspirone HCl [Buspar] 5 mg PO BID 07/18/15 Diazepam [Valium] 10 tab PO TID 07/18/15 Diphenhydramine [Benadryl Tab/Cap] 50 mg PO BID 07/18/15 Furosemide [Lasix] 20 mg PO DAILY 07/18/15 Meclizine HCl [Motion Relief] 25 mg PO PRN PRN 07/18/15 Potassium Chloride [K-Tab] 20 meq PO BID 07/18/15 Propranolol [Inderal] 40 mg PO [id number] 07/18/15 Levothyroxine Sodium [Tirosint] 100 mcg PO DAILY 08/16/15 Albuterol Sulfate [Proair Hfa] 1 spray IH DAILY 10/22/18 Rabeprazole Sodium [Aciphex] 20 mg PO DAILY 10/22/18 Bismuth Subsalicylate [Maalox] 525 mg PO DAILY 11/11/18 - Past Medical/Surgical History Diabetic: No -: Breast Cancer -: HPN -: jorje's esophagus -: HYPERTENSION -: ANXIETY -: DOUBLE MASTECTOMY -: HYSTORECTOMY -: 30+ DILATION OF ESOPHAGUS -: HIATAL HERNIA REPAIR -: SEVERAL LYSIS OF ABDOMINAL ADHESIONS -: BOWEL RESECTION FROM OBSTRUCTION -: Cyst removal at tendon R hand - Family History Mother Medical History: Heart disease, Hypertension, Lung disease, Diabetes, Kidney disease Notes: 5 BYPASSES- Father Medical History: Heart disease, Hypertension, Cancer Notes: PROSTATE CANCER Sister Medical History: Hypertension, Cancer Notes: PELON-BREAST CANCER METS TO BLADDER. . RANDA-HYPERTENSION - Social History Alcohol use: No CD- Drugs: No Caffeine use: Yes Place of Residence: Home Review of Systems 10-point ROS is otherwise unremarkable Physical Examination Temp Pulse Resp BP Pulse Ox 97.7 F 70 20 99/55 L 95 12/04/18 16:00 12/04/18 16:00 12/04/18 16:00 12/04/18 16:00 12/04/18 16:00 General: Alert, In no apparent distress, Oriented x3 HEENT: Atraumatic, PERRLA, Mucous membr. moist/pink, EOMI, Sclerae nonicteric Neck: Supple, 2+ carotid pulse no bruit, No LAD, Without JVD or thyroid abnormality Respiratory: Clear to auscultation bilaterally, Normal air movement Cardiovascular: Regular rate/rhythm, Normal S1 S2 Gastrointestinal: Normal bowel sounds, No tenderness Integumentary: Other (wound vac in place, right breast; bandage on left breast, minimal discharge noted) - Problems (1) Breast abscess of female Current Visit: Yes Status: Acute (2) Hx of breast cancer Current Visit: Yes Status: Chronic (3) Chronic pain Current Visit: Yes Status: Chronic Qualifiers: Chronic pain type: chronic pain syndrome Qualified Code(s): G89.4 - Chronic pain syndrome (4) Hypothyroidism Current Visit: Yes Status: Chronic Qualifiers: Hypothyroidism type: postoperative Qualified Code(s): E89.0 - Postprocedural hypothyroidism (5) HTN (hypertension) Current Visit: No Status: Chronic Qualifiers: Hypertension type: essential hypertension Qualified Code(s): I10 - Essential (primary) hypertension Conclusions/Impression: Patient Problems: Breast abscess of female (Acute) N61.1 Managed per primary Continue IV clindamycin, pending cultures Chronic pain (Acute) G89.29 Will restart home medications of valium Hx of breast cancer (Acute) Z85.3 Hypothyroidism (Acute) E03.9 Restart home levothyroxine dosage HTN (hypertension) (Chronic) I1 BP well controlled. Will continue home medications as tolerated. Thank you for this consult. We will continue to follow with you. Time Spent Managing Pts care (In Minutes): 55
[2018-12-04] MEDS ORDERED: MECLIZINE HCL 12.5 MG TAB PO PRN (18:15)
[2018-12-04] MEDS: DIAZEPAM 5 MG TABLET PO SCH (20:18)
[2018-12-04] MEDS: DIPHENHYDRAMINE 25 MG TAB/CAP PO SCH (20:18)
[2018-12-04] MEDS: POTASSIUM CL SA 10 MEQ TAB PO SCH (20:19)
[2018-12-04] MEDS: BUSPIRONE HCL 5 MG TABLET PO SCH (20:19)
[2018-12-04] MEDS: FUROSEMIDE 20 MG TABLET PO SCH (20:20)
[2018-12-04] MEDS ORDERED: DIAZEPAM PO SCH (21:00)
[2018-12-05 04:41] LABS: Absolute Lymphocytes (CBC) 1.7 K/uL (0.7-4.9); Absolute Monocytes 0.4 K/uL (0.1-1.3); Absolute Neutrophil 2.2 K/uL (1.8-8.0); Basophils % 0.4 % (0-1.3); Eosinophils % 3.8 % (0-4.4); Hematocrit 31.8 % (36.0-45.0); Lymphocytes % 37.1 % (15.3-44.8); MPV 9.3 fL (7.6-11.3); Monocytes % 8.8 % (3.3-12.3); RBC Red Blood Cell Count 3.63 M/uL (3.86-4.86)
[2018-12-05 05:00] LABS: Albumin 2.7 g/dL (3.4-5.0); Bilirubin Total 0.3 mg/dL (0.2-1.0); Potassium 3.7 mmol/L (3.5-5.1); Protein, Total 5.5 g/dL (6.4-8.2)
[2018-12-05] MEDS: PROPRANOLOL HCL 40 MG TAB PO SCH (06:00)
[2018-12-05] MEDS: CLINDAMYCIN INJ 300 MG in NA CHLORIDE 0.9% 50 ML IV SCH (06:22)
[2018-12-05] MEDS: LEVOTHYROXINE SOD 0.1 MG TAB PO SCH (06:26)
[2018-12-05] MEDS: POTASSIUM CL SA 10 MEQ TAB PO SCH ×2 (08:25→21:37)
[2018-12-05] MEDS: FUROSEMIDE 20 MG TABLET PO SCH (08:26)
[2018-12-05] MEDS: DIAZEPAM 5 MG TABLET PO SCH ×3 (08:26→21:37)
[2018-12-05] MEDS: DIPHENHYDRAMINE 25 MG TAB/CAP PO SCH ×2 (08:27→21:37)
[2018-12-05] MEDS: BUSPIRONE HCL 5 MG TABLET PO SCH ×2 (08:27→21:38)
--- NOTE | 2018-12-05 08:34 | HP ---
Date of Admission: 12/04/2018 History Of Present Illness: A 63-year-old, white female, status post debridement of right and left b reasts after she underwent revision of a latissimus dorsi reconstruction done 20 years ago. Past Medical History: History of breast cancer. Previous latissimus dorsi revision operation as wel l. Social History: Does not smoke. Does not drink. Allergies: HAS MULTIPLE ALLERGIES. Medications: See list. Physical Examination: BREAST: She has 2 x 2 open area of the right breast at the 6 o'clock position, and a 1.5 x 1.5 of th e left breast. Assessment: Infection of breast with dehisced wounds. Plan: Debridement and VAC placement. ARUNA/JOSE Voice ID: [id number]
--- NOTE | 2018-12-05 08:34 | OP ---
Surgeon: Be Montoya MD Preoperative Diagnosis: Open wounds of the right and left breasts. Postoperative Diagnosis: Open wounds of the right and left breasts. Procedure Performed: Debridement of skin, subcutaneous tissue, right and left breasts with VAC place ment in the right side. Anesthesia: General. Procedure In Detail: After satisfactory induction of general anesthesia, the chest was prepped. Dry sterile drapes applied in usual manner. The left breast was approached first. Tenotomy scissors an d forceps were used to debride the skin and subcutaneous tissue as needed. The wound was curetted, t hen jet lavaged with about 1 L of saline solution. The wound was packed with half-inch Nu Gauze, 4 x 4 dressing. The right breast was opened using a 10-blade extending medial to lateral from the open wound at 6 o'clock position. A few Vicryl sutures from these were removed. The PDS suture for the s kin was also removed. No pus was encountered. After debridement, the wound was jet lavaged and irri gated with about 2 L of saline solution and then a VAC placed. The patient tolerated the procedure w ell and returned to recovery room. ARUNA/JOSE Voice ID: [id number] Report ID: [id number]
[2018-12-05] MEDS ORDERED: LEVOTHYROXINE SODIUM 100 MCG PO SCH (09:00)
--- NOTE | 2018-12-05 11:16 | P.PN ---
Subjective Date of Service: 12/05/18 Chief Complaint: S/p I&D for breast abscess. Subjective: No C/O voiced Patient seen and examined at bedside. No family at bedside. Chart reviewed and case discussed with nursing staff. Patient admitted status post breast abscess I and D. states she is doing well, tolerating pain. Afebrile overnight, vital signs stable this morning. No other complaints this morning. Review of Systems 10-point ROS is otherwise unremarkable Physical Examination - Vital Signs Temperature: 97 F Blood Pressure: 100/60 Pulse: 60 Respirations: 16 Pulse Ox (%): 98 - Physical Exam General: Alert, In no apparent distress, Oriented x3 HEENT: Atraumatic, PERRLA Neck: Supple, JVD not distended Respiratory: Clear to auscultation bilaterally, Normal air movement Cardiovascular: Regular rate/rhythm, Normal S1 S2 Gastrointestinal: Normal bowel sounds, No tenderness Musculoskeletal: No tenderness Integumentary: Other (Bandage in place, no drainage noted at this time. Wound VAC in place) Neurological: Normal speech, Normal tone, Normal affect Lymphatics: No axilla or inguinal lymphadenopathy - Studies Laboratory Data (last 24 hrs) 12/05/18 04:13: Sodium 143, Potassium 3.7, BUN 11, Creatinine 0.71, Glucose 95, Total Bilirubin 0.3, AST 10 L, ALT 15, Alkaline Phosphatase 64 12/05/18 04:13: WBC 4.5 D, Hgb 10.7 L, Hct 31.8 L D, Plt Count 224 D Assessment And Plan - Current Problems (Diagnosis) (1) Breast abscess of female Current Visit: Yes Status: Acute (2) Hx of breast cancer Current Visit: Yes Status: Chronic (3) Chronic pain Current Visit: Yes Status: Chronic Qualifiers: Chronic pain type: chronic pain syndrome Qualified Code(s): G89.4 - Chronic pain syndrome (4) Hypothyroidism Current Visit: Yes Status: Chronic Qualifiers: Hypothyroidism type: postoperative Qualified Code(s): E89.0 - Postprocedural hypothyroidism (5) HTN (hypertension) Current Visit: No Status: Chronic Qualifiers: Hypertension type: essential hypertension Qualified Code(s): I10 - Essential (primary) hypertension - Plan Breast abscess of female (Acute) N61.1 Managed per primary Wound cultures growing Staph, will adjust antibiotics. Discontinue IV clindamycin, switch to IV doxycycline. (allergic to sulfa and floxacins) Patient with multiple antibiotic allergies, will need to monitor. Chronic pain (Acute) G89.29 Continue home medications of valium Hx of breast cancer (Acute) Z85.3 Hypothyroidism (Acute) E03.9 Continue home levothyroxine dosage HTN (hypertension) (Chronic) I1 BP well controlled. Will continue home medications as tolerated. Thank you for this consult. We will continue to follow with you. Time Spent Managing PTS Care (In Minutes): 35
--- NOTE | 2018-12-05 14:31 | PN ---
Subjective: The patient's VAC is working well, very little if any discharge from the wound, but the wound is compressing. Erythema is decreasing, tenderness decreasing. We will plan to keep her on VA C until Saturday. At that time, we will debride, possibly closure, and then discharge. MONIKA Voice ID: [id number] Report ID: [id number]
[2018-12-05] MEDS: DOXYCYCLINE 100 MG in NA CHLORIDE 0.9% 100 ML IVPB SCH (21:35)
[2018-12-06] MEDS: PROPRANOLOL HCL 40 MG TAB PO SCH (06:00)
[2018-12-06] MEDS: LEVOTHYROXINE SOD 0.1 MG TAB PO SCH (06:32)
[2018-12-06 08:36] LABS: Absolute Lymphocytes (CBC) 1.1 K/uL (0.7-4.9); Absolute Monocytes 0.2 K/uL (0.1-1.3); Absolute Neutrophil 3.2 K/uL (1.8-8.0); Basophils % 0.3 % (0-1.3); Hematocrit 36.2 % (36.0-45.0); Lymphocytes % 23.2 % (15.3-44.8); MPV 9.3 fL (7.6-11.3); Monocytes % 4.6 % (3.3-12.3); RBC Red Blood Cell Count 4.08 M/uL (3.86-4.86)
[2018-12-06 08:56] LABS: Albumin 2.9 g/dL (3.4-5.0); Bilirubin Total 0.3 mg/dL (0.2-1.0); Potassium 3.8 mmol/L (3.5-5.1)
[2018-12-06] MEDS: BUSPIRONE HCL 5 MG TABLET PO SCH ×2 (09:10→20:50)
[2018-12-06] MEDS: DIPHENHYDRAMINE 25 MG TAB/CAP PO SCH ×2 (09:10→20:50)
[2018-12-06] MEDS: DIAZEPAM 5 MG TABLET PO SCH ×3 (09:10→20:51)
[2018-12-06] MEDS: POTASSIUM CL SA 10 MEQ TAB PO SCH ×2 (09:10→20:50)
[2018-12-06] MEDS: DOXYCYCLINE 100 MG in NA CHLORIDE 0.9% 100 ML IVPB SCH ×2 (09:11→20:42)
[2018-12-06] MEDS: FUROSEMIDE 20 MG TABLET PO SCH (09:12)
--- NOTE | 2018-12-06 13:01 | P.PN ---
Subjective Date of Service: 12/06/18 Chief Complaint: S/p I&D for breast abscess. Subjective: No C/O voiced, Improving Patient seen and examined at bedside. No family at bedside. Chart reviewed and case discussed with nursing staff. Patient admitted status post breast abscess I and D. states she is doing well, tolerating pain. Afebrile overnight, vital signs stable this morning. No other complaints this morning. Review of Systems 10-point ROS is otherwise unremarkable Physical Examination - Vital Signs Temperature: 97.2 F Blood Pressure: 104/52 Pulse: 79 Respirations: 18 Pulse Ox (%): 98 - Physical Exam General: Alert, In no apparent distress, Oriented x3 HEENT: Atraumatic, PERRLA, EOMI Neck: Supple, JVD not distended Respiratory: Clear to auscultation bilaterally, Normal air movement Cardiovascular: Regular rate/rhythm, Normal S1 S2 Gastrointestinal: Normal bowel sounds, No tenderness Musculoskeletal: No tenderness Integumentary: No rashes, Other (Wound VAC in place. Bandage without any drainage at this time.) Neurological: Normal speech, Normal tone, Normal affect - Studies Laboratory Data (last 24 hrs) 12/06/18 08:28: Sodium 141, Potassium 3.8, BUN 13, Creatinine 0.86, Glucose 178 H, Total Bilirubin 0.3, AST 13 L, ALT 15, Alkaline Phosphatase 77 12/06/18 08:28: WBC 4.8, Hgb 11.8 L, Hct 36.2, Plt Count 237 Assessment And Plan - Current Problems (Diagnosis) (1) Breast abscess of female Current Visit: Yes Status: Acute (2) Hx of breast cancer Current Visit: Yes Status: Chronic (3) Chronic pain Current Visit: Yes Status: Chronic Qualifiers: Chronic pain type: chronic pain syndrome Qualified Code(s): G89.4 - Chronic pain syndrome (4) Hypothyroidism Current Visit: Yes Status: Chronic Qualifiers: Hypothyroidism type: postoperative Qualified Code(s): E89.0 - Postprocedural hypothyroidism (5) HTN (hypertension) Current Visit: No Status: Chronic Qualifiers: Hypertension type: essential hypertension Qualified Code(s): I10 - Essential (primary) hypertension - Plan Breast abscess of female (Acute) N61.1 Managed per primary Wound cultures growing Staph, antibiotics adjusted. Continue IV doxycycline. (allergic to sulfa and floxacins) Patient with multiple antibiotic allergies, will need to monitor. Seems to be tolerating the doxycycline well. Chronic pain (Acute) G89.29 Continue home medications of valium Hx of breast cancer (Acute) Z85.3 Hypothyroidism (Acute) E03.9 Continue home levothyroxine dosage HTN (hypertension) (Chronic) I1 BP well controlled. Will continue home medications as tolerated. Thank you for this consult. We will continue to follow with you.
[2018-12-07] MEDS: PROPRANOLOL HCL 40 MG TAB PO SCH (06:00)
[2018-12-07] MEDS: LEVOTHYROXINE SOD 0.1 MG TAB PO SCH (06:16)
[2018-12-07] MEDS: POTASSIUM CL SA 10 MEQ TAB PO SCH ×2 (09:34→21:32)
[2018-12-07] MEDS: BUSPIRONE HCL 5 MG TABLET PO SCH ×2 (09:34→21:32)
[2018-12-07] MEDS: DIPHENHYDRAMINE 25 MG TAB/CAP PO SCH ×2 (09:34→21:31)
[2018-12-07] MEDS: DOXYCYCLINE 100 MG in NA CHLORIDE 0.9% 100 ML IVPB SCH ×2 (09:35→23:16)
[2018-12-07] MEDS: DIAZEPAM 5 MG TABLET PO SCH ×3 (10:37→21:31)
[2018-12-07] MEDS: FUROSEMIDE 20 MG TABLET PO SCH (13:01)
--- NOTE | 2018-12-07 14:45 | P.PN ---
Subjective Date of Service: 12/07/18 Chief Complaint: S/p I&D for breast abscess. Subjective: No C/O voiced, Improving Patient seen and examined at bedside. No family at bedside. Chart reviewed and case discussed with nursing staff. Patient admitted status post breast abscess I and D. states she is doing well, tolerating pain. Afebrile overnight, vital signs stable this morning. No other complaints this morning. Review of Systems 10-point ROS is otherwise unremarkable Physical Examination - Vital Signs Temperature: 97.4 F Blood Pressure: 114/58 Pulse: 67 Respirations: 16 Pulse Ox (%): 96 - Physical Exam General: Alert, In no apparent distress, Oriented x3 HEENT: Atraumatic, PERRLA, EOMI Respiratory: Clear to auscultation bilaterally, Normal air movement Cardiovascular: Regular rate/rhythm, Normal S1 S2 Assessment And Plan - Current Problems (Diagnosis) (1) Breast abscess of female Current Visit: Yes Status: Acute (2) Hx of breast cancer Current Visit: Yes Status: Chronic (3) Chronic pain Current Visit: Yes Status: Chronic Qualifiers: Chronic pain type: chronic pain syndrome Qualified Code(s): G89.4 - Chronic pain syndrome (4) Hypothyroidism Current Visit: Yes Status: Chronic Qualifiers: Hypothyroidism type: postoperative Qualified Code(s): E89.0 - Postprocedural hypothyroidism (5) HTN (hypertension) Current Visit: No Status: Chronic Qualifiers: Hypertension type: essential hypertension Qualified Code(s): I10 - Essential (primary) hypertension - Plan Breast abscess of female (Acute) N61.1 Managed per primary Wound cultures growing Staph, antibiotics adjusted. Continue IV doxycycline. (allergic to sulfa and floxacins) Patient with multiple antibiotic allergies, will need to monitor. Seems to be tolerating the doxycycline well. Chronic pain (Acute) G89.29 Continue home medications of valium Hx of breast cancer (Acute) Z85.3 Hypothyroidism (Acute) E03.9 Continue home levothyroxine dosage HTN (hypertension) (Chronic) I1 BP well controlled. Will continue home medications as tolerated. Thank you for this consult. We will continue to follow with you.
[2018-12-08] MEDS: PROPRANOLOL HCL 40 MG TAB PO SCH (06:00)
[2018-12-08] MEDS: LEVOTHYROXINE SOD 0.1 MG TAB PO SCH (06:02)
[2018-12-08] MEDS: FUROSEMIDE 20 MG TABLET PO SCH (09:00)
[2018-12-08] MEDS: DIAZEPAM 5 MG TABLET PO SCH ×3 (10:06→21:26)
[2018-12-08] MEDS: BUSPIRONE HCL 5 MG TABLET PO SCH ×2 (10:07→21:26)
[2018-12-08] MEDS: POTASSIUM CL SA 10 MEQ TAB PO SCH ×2 (10:07→21:27)
[2018-12-08] MEDS: DIPHENHYDRAMINE 25 MG TAB/CAP PO SCH ×2 (10:07→21:26)
[2018-12-08] MEDS: DOXYCYCLINE 100 MG in NA CHLORIDE 0.9% 100 ML IVPB SCH ×2 (10:09→21:00)
--- NOTE | 2018-12-08 13:59 | PN ---
The patient's dressing is changed . There is a small opening about 1 x 1 x 1 cm. Plan on debriding, possibly skin graft and flap closure. The VAC to be changed and the wound closed. She is n.p.o. at midnight. Permit for graft closure. MONIKA Voice ID: [id number] Report ID: [id number] MTDD
--- NOTE | 2018-12-08 19:18 | P.PN ---
Subjective Date of Service: 12/08/18 Chief Complaint: S/p I&D for breast abscess. Subjective: No C/O voiced, Improving Patient seen and examined at bedside. No family at bedside. Chart reviewed and case discussed with nursing staff. Patient admitted status post breast abscess I and D. states she is doing well, tolerating pain. Afebrile overnight, vital signs stable this morning. No other complaints this morning. Review of Systems 10-point ROS is otherwise unremarkable Physical Examination - Vital Signs Temperature: 98.1 F Blood Pressure: 100/59 Pulse: 70 Respirations: 16 Pulse Ox (%): 94 - Physical Exam General: Alert, In no apparent distress HEENT: Atraumatic, PERRLA, EOMI Neck: Supple, JVD not distended Respiratory: Clear to auscultation bilaterally, Normal air movement Cardiovascular: Regular rate/rhythm, Normal S1 S2 Gastrointestinal: Normal bowel sounds, No tenderness Musculoskeletal: No tenderness Integumentary: No erythema, No warmth, No cyanosis, Skin lesion Neurological: Normal speech, Normal tone, Normal affect Lymphatics: No axilla or inguinal lymphadenopathy Assessment And Plan - Current Problems (Diagnosis) (1) Breast abscess of female Current Visit: Yes Status: Acute (2) Hx of breast cancer Current Visit: Yes Status: Chronic (3) Chronic pain Current Visit: Yes Status: Chronic Qualifiers: Chronic pain type: chronic pain syndrome Qualified Code(s): G89.4 - Chronic pain syndrome (4) Hypothyroidism Current Visit: Yes Status: Chronic Qualifiers: Hypothyroidism type: postoperative Qualified Code(s): E89.0 - Postprocedural hypothyroidism (5) HTN (hypertension) Current Visit: No Status: Chronic Qualifiers: Hypertension type: essential hypertension Qualified Code(s): I10 - Essential (primary) hypertension - Plan Breast abscess of female (Acute) N61.1 Managed per primary Wound cultures growing Staph, antibiotics adjusted. Continue IV doxycycline. (allergic to sulfa and floxacins) Patient with multiple antibiotic allergies, will need to monitor. Seems to be tolerating the doxycycline well. She is pending OR tomorrow for closure Chronic pain (Acute) G89.29 Continue home medications of valium Hx of breast cancer (Acute) Z85.3 Hypothyroidism (Acute) E03.9 Continue home levothyroxine dosage HTN (hypertension) (Chronic) I1 BP well controlled. Will continue home medications as tolerated. Thank you for this consult. We will continue to follow with you.
[2018-12-09 04:40] LABS: Absolute Lymphocytes (CBC) 1.8 K/uL (0.7-4.9); Absolute Monocytes 0.5 K/uL (0.1-1.3); Absolute Neutrophil 2.4 K/uL (1.8-8.0); Basophils % 0.4 % (0-1.3); Eosinophils % 8.2 % (0-4.4); Hematocrit 36.4 % (36.0-45.0); Lymphocytes % 35.2 % (15.3-44.8); MPV 9.5 fL (7.6-11.3); Monocytes % 8.9 % (3.3-12.3); RBC Red Blood Cell Count 4.18 M/uL (3.86-4.86)
[2018-12-09 04:59] LABS: Potassium 4.3 mmol/L (3.5-5.1)
[2018-12-09] MEDS: PROPRANOLOL HCL 40 MG TAB PO SCH (06:00)
[2018-12-09] MEDS: LEVOTHYROXINE SOD 0.1 MG TAB PO SCH (06:30)
[2018-12-09] MEDS ORDERED: Ringers Lactate 1,000 ML IV ONE (08:17)
[2018-12-09] MEDS: DOXYCYCLINE 100 MG in NA CHLORIDE 0.9% 100 ML IVPB SCH (08:52)
[2018-12-09] MEDS ORDERED: PROPOFOL 200 MG/20 ML VIAL IV ONE (08:53)
[2018-12-09] MEDS ORDERED: LIDOCAINE 2% MPF 5 ML VIAL ONE (08:54)
[2018-12-09] MEDS ORDERED: MIDAZOLAM HCL 2 MG/2 ML INJ ONE (08:54)
[2018-12-09] MEDS ORDERED: FENTANYL CITR 100 MCG/2 ML ONE (08:54)
[2018-12-09] MEDS: POTASSIUM CL SA 10 MEQ TAB PO SCH (09:00)
[2018-12-09] MEDS: FUROSEMIDE 20 MG TABLET PO SCH (09:00)
[2018-12-09] MEDS: DIAZEPAM 5 MG TABLET PO SCH (09:00)
[2018-12-09] MEDS: BUSPIRONE HCL 5 MG TABLET PO SCH (09:00)
[2018-12-09] MEDS: DIPHENHYDRAMINE 25 MG TAB/CAP PO SCH (09:00)
[2018-12-09] MEDS ORDERED: ROCURONIUM 50 MG/5 ML VIAL IV ONE (09:06)
[2018-12-09] MEDS ORDERED: METHYLENE BLUE 0.5% 10 ML AMP ONE (09:32)
[2018-12-09] MEDS ORDERED: GLYCOPYRROLATE 0.2 MG/ML SYR ONE (09:51)
[2018-12-09] MEDS ORDERED: NEOSTIGMINE 1 MG/ML -10 ML VIAL ONE (09:56)
[2018-12-09 10:07] VITALS: O2SAT 98
[2018-12-09 12:17] VITALS: BP 116/65; TEMP 97.5
--- NOTE | 2018-12-09 20:00 | OP ---
Surgeon: Be Montoya MD Preoperative Diagnosis: Open wound, right and left breast. Postoperative Diagnosis: Open wound, right and left breast. Procedure Performed: Debridement of skin and subcu tissue, layered closure of 8.5 right breast and 3 .5 left breasts. Anesthesia: General Procedure In Detail: After satisfactory induction of general anesthesia, the chest was prepped. Dry sterile drapes were applied in the usual manner. The VAC had been removed. The wound was apparentl y clean on the right breast. This was debrided with a curette and jet lavaged, irrigated with 1 L of dilute Betadine solution and then closed in layers using 3-0 PDS in deep dermis, 3-0 Prolene horizon yasir and vertical mattress in the skin. Attention was turned to the left breast. It was curetted and then stained with methylene blue. Then, an elliptical incision was made and then all methylene blue -stained tissue was removed, then jet lavaged, irrigated with 2 L of saline solution, and then electr ocautery for hemostasis and wound was closed with 3-0 PDS in deep dermis, 3-0 Prolene vertical mattre ss and horizontal mattress and skin dressed with Xeroform and 4x4 and tape. The patient tolerated th e procedure well and returned to recovery. ARUNA/JOSE Voice ID: [id number] Report ID: [id number]
--- NOTE | 2018-12-10 05:04 | DS ---
Date of Discharge: 12/09/2018 Hospital Course: The patient is a 63-year-old white female, status post debridement of right and left breasts. She is status post breast cancer with latismus flap and implant reconstruction The implant became infected. This was removed. This was approximately 15 years ago. She is now requesting reconstruction and she underwent reconstruction by lifting and conization of the previous flap. The wound dehiscence. She is now readmitted for the open wounds about 2 x 2 cm on the right breast and 1.5 x 0.5 cm on left breast. Remainder of exam is unremarkable. She does not smoke, does not drink. She has had multiple previous surgeries as described. She has multiple allergies. See her list. She takes multiple medications. See her list. She was taken to surgery, underwent debridement of VAC placed on the right breast and debridement of left breast. She was later returned for excision of the layered closure at both breasts. She was discharged to home. Return to office following a day at home. Medications, she will be on preop antibiotic. Unfortunately, she is allergic to multiple medications, and will just take Tylenol or aspirin as needed for pain. ARUNA/JOSE Voice ID: [id number] Report ID: [id number] RENZO
--- NOTE | 2018-12-10 06:01 | DS ---
Date of Discharge: 12/09/2018 Electrician Apprentice: Dr. Montoya with Surgery. Procedures: 12/04/2018, debridement of skin, subcutaneous tissue, right and left breast with VAC iglesia cement on the right side. Procedure on 12/09/2018, right breast wound VAC removal, I and D, and clos ure of bilateral breasts. Admitting Diagnoses: 1.Infection of breast with dehisced wound. 2.History of breast cancer. 3.Essential hypertension. 4.Generalized anxiety disorder. 5.Status post colon resection. 6.Mcfarland's esophagus. 7.Chronic pain syndrome. 8.Hypothyroidism. Discharge Diagnoses: 1.Breast abscesses bilaterally, status post I and D and closure with wound VAC normal. 2.History of breast cancer. The patient does have lymph node on the right side, which is contralate ral to her breast cancer, which is on the left. The patient will need surveillance of that lymph nod e, likely reactive. However, if not improving, we will need ultrasound and biopsy. 3.Chronic pain syndrome, stable. 4.Hypothyroidism postprocedural. 5.Essential hypertension. Hospital Course: The patient is a 63-year-old female, who was admitted by Dr. Montoya for breast a bscesses. The patient underwent procedure as mentioned above, did well. Wound closure was achieved and the patient was doing well. She was afebrile. White blood cell count was normal. No cultures a re available. Medicine Service was consulted by Dr. Montoya. The patient was then cleared for dis charge and was cleared by Dr. Montoya to finish out a course of clindamycin 300 mg b.i.d. for 10 da ys. Followup: The patient is to follow up with primary care physician in 2-3 days. Follow up with Dr. Ishan lee in 1 week. Return to ER for worsening condition. Diet: Heart healthy. Activity: As tolerated. Physical Examination: General: Awake, alert, oriented x3. No acute distress. CV: S1, S2. No murmurs. Respiratory: Moving air well bilaterally. Abdomen: Soft, nontender, nondistended. Positive bowel sounds. Extremities: No clubbing, cyanosis, edema. Neuro: Nonfocal. Skin: Bilateral breast incision sites clean, dry, intact. No drainage. The patient was examined with charge nurse present, Mindy. Total time spent discharging the patien t was 32 minutes. /JOSE Voice ID: [id number] Report ID: [id number]
== END 2018-12-09 13:45 | disposition home or self-care (01) | DRG 584 ==
LOC: OR 08:36 → 2ND 09:48
PROVIDERS: ADMIT Specialist; ATTEND Family Medicine
PROC: 0HBV0ZZ Excision of Bilateral Breast, Open Approach (ICD-10-PCS; 2018-12-04)
PROC: 0JD63ZZ Extraction of Chest Subcutaneous Tissue and Fascia, Percutaneous Approach (ICD-10-PCS; 2018-12-04)
PROC: 2W14X6Z Compression of Chest Wall using Pressure Dressing (ICD-10-PCS; 2018-12-04)
PROC: 0HBT0ZZ Excision of Right Breast, Open Approach (ICD-10-PCS; principal; 2018-12-09 09:00)
DX: N61.1 Abscess of the breast and nipple (principal); T81.31XA Disruption of external operation (surgical) wound, not elsewhere classified, initial encounter; Z85.3 Personal history of malignant neoplasm of breast; G89.4 Chronic pain syndrome; E89.0 Postprocedural hypothyroidism; I10 Essential (primary) hypertension; Y83.4 Other reconstructive surgery as the cause of abnormal reaction of the patient, or of later complication, without mention of misadventure at the time of the procedure; Y92.019 Unspecified place in single-family (private) house as the place of occurrence of the external cause; F41.1 Generalized anxiety disorder; K22.70 Barrett's esophagus without dysplasia
CPT/HCPCS: 36415; 80048; 80053; 85025; 88304; 88305; 88312; J0690; J2250; J2405; J2704; J2710; J3010

== ENCOUNTER 2018-12-20 21:01 | Emergency (ER) | payer OTHER ==
--- OUTSIDE RECORDS SUMMARY | 2018-12-20 21:03 | XMS REPORT | Clinical Summary ---
:1955 Author Organization [facility] Address [address] [place] [address] Care Team Providers Name Role Phone Estela Patel Primary Care Provider Allergies Not on File Medications No known medications Active Problems No known active problems Encounters Date Type Specialty Care Team Description 03/24/2018 Orders Only Orthopedic Surgery Adriana Sebastian MA Acute pain of left knee (Primary Dx) after 12/19/2017 Social History Tobacco Use Types Packs/Day Years [...] 2005 SHINGLES VACCINES (#1) 2005 INFLUENZA VACCINE 04/09/2019 Results Not on fileafter 12/19/2017 Insurance Payer Benefit Plan / Group Subscriber ID Type Phone Address MEDICARE MEDICARE PART A AND B xxxxxxxxxx Medicare [place], [place] Advance Directives Patient has advance care planning documents on file. For more information, please contact:[phone] [place] [address]
[2018-12-20] MEDS ORDERED: CEFTRIAXONE/SWI 1gm 0 GM/0 ML SYR ONE (21:57)
[2018-12-20] MEDS ORDERED: CEFTRIAXONE 1000 MG/VIAL ONE (22:00)
[2018-12-20] MEDS ORDERED: WATER FOR INJ,STERILE 10 ML ONE (22:01)
[2018-12-20 22:13] LABS: Absolute Lymphocytes (CBC) 2.2 K/uL (0.7-4.9); Absolute Monocytes 0.5 K/uL (0.1-1.3); Basophils % 0.6 % (0-1.3); Eosinophils % 3.6 % (0-4.4); Hematocrit 39.9 % (36.0-45.0); Lymphocytes % 37.5 % (15.3-44.8); MPV 9.7 fL (7.6-11.3); Monocytes % 7.6 % (3.3-12.3); RBC Red Blood Cell Count 4.61 M/uL (3.86-4.86)
--- NOTE | 2018-12-20 22:41 | EDPHYS ---
Physician Documentation [facility] Name: Carine Sheikh Age: 63 yrs Sex: Female : 1955 Arrival Date: 12/20/2018 Time: 21:02 Bed 14 Private MD: ED Physician Sergo Escobar HPI: 12/20 22:41 This 63 yrs old Female presents to ER via Ambulatory with complaints of Wound jr8 Infection. 22:41 Onset: The symptoms/episode began/occurred gradually, 2 day(s) ago. Associated signs jr8 and symptoms: Pertinent negatives: abdominal pain, chest pain, fever, vomiting. Modifying factors: The patient symptoms are alleviated by nothing, the patient symptoms are aggravated by movement. The patient has experienced similar episodes in the past, with the last episode occurring 1 week(s) ago, today's symptoms are similar, to previous cellulitis. The patient has been recently seen by a physician: Dr. Montoya 1 week(s) ago, The patient has been recently been admitted at [facility], was discharged last week, for similar complaints, but despite evaluation and treatment the patient has continued symptoms, and was told to return for re-evaluation. Patient has history of frequent MRSA infections s/p surgery. Reports a mastectomy site revision 5 weeks prior with cellulitis afterwards. Patient was hospitalized a week ago for the cellulitis and placed on Clindamycin. Patient is taking Clinda at home but reports that the redness and swelling to surgical site is becoming worse. Patient called Dr. Montoya and was told to check into the ED. . Historical: - Allergies: 21:30 ACETAMINOPHEN; rr5 21:30 butorphanol tartrate; rr5 21:30 Ciprofloxacin; rr5 21:30 Codeine; rr5 21:30 Droperidol; rr5 21:30 GUAIFENESIN; rr5 21:30 hydrocodone bitartrate; rr5 21:30 Iodine and Iodide Containing Products; rr5 21:30 meperidine HCl; rr5 21:30 Morphine; rr5 21:30 PENICILLINS; rr5 21:30 prochlorperazine Edisylate; rr5 21:30 Prochlorperazine Maleate; rr5 21:30 PROPOXYPHENE; rr5 21:30 QUINOLONES; rr5 21:30 Sulfa (Sulfonamide Antibiotics); rr5 - Home Meds: 21:38 levothyroxine oral [Active]; BuSpar Oral [Active]; Valium Oral [Active]; Phenergan Oral rr5 [Active]; Meclizine Oral [Active]; Lasix Oral [Active]; Benadryl Oral [Active]; Potassium Chloride Oral [Active]; propranolol Oral [Active]; - PMHx: 21:30 Anemia; BREAST CA; colon resection; Hypertension; 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 - Social history:: Smoking status: Patient/guardian denies using tobacco, Patient/guardian denies using alcohol, street drugs. - Ebola Screening: : Patient negative for fever greater than or equal to 101.5 degrees Fahrenheit, and additional compatible Ebola Virus Disease symptoms Patient denies exposure to infectious person Patient denies travel to an Ebola-affected area in the 21 days before illness onset. ROS: 22:41 Constitutional: Negative for fever, chills, and weight loss, Eyes: Negative for injury, jr8 pain, redness, and discharge, Cardiovascular: Negative for chest pain, palpitations, and edema, Respiratory: Negative for shortness of breath, cough, wheezing, and pleuritic chest pain, Abdomen/GI: Negative for abdominal pain, nausea, vomiting, diarrhea, and constipation. 22:41 Skin: Positive for cellulitis, erythema, swelling. Exam: 22:47 Constitutional: This is a well developed, well nourished patient who is awake, alert, jr8 and in no acute distress. Head/Face: Normocephalic, atraumatic. ENT: Nares patent. No nasal discharge, no septal abnormalities noted. Tympanic membranes are normal and external auditory canals are clear. Oropharynx with no redness, swelling, or masses, exudates, or evidence of obstruction, uvula midline. Mucous membranes moist. Neck: Trachea midline, no thyromegaly or masses palpated, and no cervical lymphadenopathy. Supple, full range of motion without nuchal rigidity, or vertebral point tenderness. No Meningismus. Cardiovascular: Regular rate and rhythm with a normal S1 and S2. No gallops, murmurs, or rubs. Normal PMI, no JVD. No pulse deficits. Respiratory: Lungs have equal breath sounds bilaterally, clear to auscultation and percussion. No rales, rhonchi or wheezes noted. No increased work of breathing, no retractions or nasal flaring. Back: No spinal tenderness. No costovertebral tenderness. Full range of motion. 22:47 Chest/axilla: Inspection: cellulitis, of the left and right masectomy site Palpation: tenderness, that is mild, Axilla: lymphadenopathy, that is small, in the right axilla, with tenderness. 22:47 Skin: Appearance: normal except for affected area, Color: normal in color, pink, Temperature: normal temperature. 22:47 Neuro: Orientation: is normal, appropriate for stated age, no acute changes, Cranial nerves: no acute changes, CN II- XII are normal as tested. Vital Signs: 21:28 BP 118 / 57; Pulse 81; Resp 17; Temp 98.1; Pulse Ox 98% ; Weight 63.05 kg; Height 5 ft. rr5 4 in. (162.56 cm); Pain 6/10; 22:20 BP 119 / 70; Pulse 86; Resp 16; Pulse Ox 99% ; rr5 23:00 BP 121 / 70; Pulse 89; Resp 17; Pulse Ox 98% ; rr5 21:28 Body Mass Index 23.86 (63.05 kg, 162.56 cm) rr5 MDM: 21:06 Patient medically screened. jr8 22:39 Data reviewed: vital signs, nurses notes, lab test result(s). Data interpreted: Pulse jr8 oximetry: on room air is 98 %. Interpretation: normal. Counseling: I had a detailed discussion with the patient and/or guardian regarding: the historical points, exam findings, and any diagnostic results supporting the discharge/admit diagnosis, lab results, the need for outpatient follow up, a filter tender jelly, to return to the emergency department if symptoms worsen or persist or if there are any questions or concerns that arise at home. ED course: Talked to Dr. Montoya. Agrees that we should start on second antibiotic. Will see her first thing on Saturday in his clinic. Patient good with this plan . 12/20 21:40 Order name: CBC with Diff; Complete Time: 22:39 jr8 Administered Medications: 22:00 Drug: Rocephin (cefTRIAXone) 1 grams Route: IM; Site: left gluteus; rr5 23:00 Follow up: Response: No adverse reaction rr5 Disposition: 12/21 00:54 Co-signature as Attending Physician, Sergo Escobar MD. rn Disposition: 12/20/18 22:40 Discharged to Home. Impression: Local infection of the skin and subcutaneous tissue, unspecified. - Condition is Stable. - Discharge Instructions: Cellulitis, Adult. - Prescriptions for Keflex 500 mg Oral Capsule - take 1 capsule by ORAL route every 6 hours for 10 days; 40 capsule. - Medication Reconciliation Form, Thank You Letter, Antibiotic Education, Prescription Opioid Use form. - Follow up: Be Montoya MD; When: 48 Hours; Reason: Wound Recheck, Recheck today's complaints, Continuance of care, Re-evaluation by your physician. - Problem is new. - Symptoms have improved. Signatures: Dispatcher [employer] EDMS Sergo Escobar MD MD rn Roszak, Josh, PA PA jr8 Robert Hu RN RN rr5 Corrections: (The following items were deleted from the chart) 12/20 23:01 22:40 12/20/2018 22:40 Discharged to Home. Impression: Local infection of the skin and rr5 subcutaneous tissue, unspecified. Condition is Stable. Forms are Medication Reconciliation Form, Thank You Letter, Antibiotic Education, Prescription Opioid Use. Follow up: Be Montoya; When: 48 Hours; Reason: Wound Recheck, Recheck today's complaints, Continuance of care, Re-evaluation by your physician. Problem is new. Symptoms have improved. jr8
--- NOTE | 2018-12-20 22:41 | ER ---
Nurse's Notes [facility] Name: Carine Sheikh Age: 63 yrs Sex: Female : 1955 Arrival Date: 12/20/2018 Time: 21:02 Bed 14 Private MD: Diagnosis: Local infection of the skin and subcutaneous tissue, unspecified Presentation: 12/20 21:23 Presenting complaint: Patient states: pain and swelling on chest area. I went breast rr5 reconstructive surgery last November 12 [address] montoya about this and he said to come here to check it. Transition of care: patient was not received from another setting of care. Onset of symptoms was December 20, 2018. Note I had staphylococcus infection they gave clindamycin. I'm on levaquin the shifted to clindamycin. having on and off fever. Care prior to arrival: Medication(s) given: on clindamycin medication. 21:23 Method Of Arrival: Ambulatory rr5 21:23 Acuity: AZEEM 3 rr5 22:30 Risk Assessment: Do you want to hurt yourself or someone else? Patient reports no rr5 desire to harm self or others. Initial Sepsis Screen: Does the patient meet any 2 criteria? No. Patient's initial sepsis screen is negative. Does the patient have a suspected source of infection? Yes: Skin breakdown/wound. Historical: - Allergies: 21:30 ACETAMINOPHEN; rr5 21:30 butorphanol tartrate; rr5 21:30 Ciprofloxacin; rr5 21:30 Codeine; rr5 21:30 Droperidol; rr5 21:30 GUAIFENESIN; rr5 21:30 hydrocodone bitartrate; rr5 21:30 Iodine and Iodide Containing Products; rr5 21:30 meperidine HCl; rr5 21:30 Morphine; rr5 21:30 PENICILLINS; rr5 21:30 prochlorperazine Edisylate; rr5 21:30 Prochlorperazine Maleate; rr5 21:30 PROPOXYPHENE; rr5 21:30 QUINOLONES; rr5 21:30 Sulfa (Sulfonamide Antibiotics); rr5 - Home Meds: 21:38 levothyroxine oral [Active]; BuSpar Oral [Active]; Valium Oral [Active]; Phenergan Oral rr5 [Active]; Meclizine Oral [Active]; Lasix Oral [Active]; Benadryl Oral [Active]; Potassium Chloride Oral [Active]; propranolol Oral [Active]; - PMHx: 21:30 Anemia; BREAST CA; colon resection; Hypertension; 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 - Social history:: Smoking status: Patient/guardian denies using tobacco, Patient/guardian denies using alcohol, street drugs. - Ebola Screening: : Patient negative for fever greater than or equal to 101.5 degrees Fahrenheit, and additional compatible Ebola Virus Disease symptoms Patient denies exposure to infectious person Patient denies travel to an Ebola-affected area in the 21 days before illness onset. Screenin:42 Abuse screen: Denies threats or abuse. Denies injuries from another. Nutritional rr5 screening: No deficits noted. Tuberculosis screening: No symptoms or risk factors identified. Fall Risk IV access (20 points). Total Love Fall Scale indicates No Risk (0-24 pts). Assessment: 21:25 General: Appears in no apparent distress. uncomfortable, Behavior is calm, cooperative, rr5 appropriate for age. Pain: Complains of pain in chest Pain does not radiate. Pain currently is 6 out of 10 on a pain scale. Quality of pain is described as aching, Pain began gradually, Is intermittent. Neuro: Level of Consciousness is awake, alert, obeys commands, Oriented to person, place, time, situation, Appropriate for age. Cardiovascular: Capillary refill < 3 seconds Thorax mastectomy, laceration repair went to reconstructive surgery last november. . Patient's skin is warm and dry. Respiratory: Airway is patent Respiratory effort is even, unlabored, Respiratory pattern is regular, symmetrical. GI: No signs and/or symptoms were reported involving the gastrointestinal system. : No signs and/or symptoms were reported regarding the genitourinary system. EENT: No signs and/or symptoms were reported regarding the EENT system. Derm: Skin temperature is warm Wound noted chest Wound is reconstructive surgery at chest area. swelling, redness, warm to touch noted. Musculoskeletal: Capillary refill < 3 seconds, Range of motion: Swelling present in chest. 22:05 Reassessment: Patient appears in no apparent distress at this time. No changes from rr5 previously documented assessment. Patient is alert, oriented x 3, equal unlabored respirations, skin warm/dry/pink. awaiting for laboratory results. 23:00 Reassessment: Patient appears in no apparent distress at this time. Patient is alert, rr5 oriented x 3, equal unlabored respirations, skin warm/dry/pink. discharge instruction given and explained without complaints made. Vital Signs: 21:28 BP 118 / 57; Pulse 81; Resp 17; Temp 98.1; Pulse Ox 98% ; Weight 63.05 kg; Height 5 ft. rr5 4 in. (162.56 cm); Pain 6/10; 22:20 BP 119 / 70; Pulse 86; Resp 16; Pulse Ox 99% ; rr5 23:00 BP 121 / 70; Pulse 89; Resp 17; Pulse Ox 98% ; rr5 21:28 Body Mass Index 23.86 (63.05 kg, 162.56 cm) rr5 ED Course: 21:02 Patient arrived in ED. do 21:06 Allan Duarte PA is PHCP. jr8 21:06 Sergo Escobar MD is Attending Physician. jr8 21:23 Robert Hu, BRAEDEN is Primary Nurse. rr5 21:25 Patient has correct armband on for positive identification. Placed in gown. Bed in low rr5 position. Call light in reach. Pulse ox on. NIBP on. 21:28 Triage completed. rr5 21:30 Arm band placed on. rr5 21:40 Inserted saline lock: 22 gauge in right antecubital area, using aseptic technique. rr5 Blood collected. 22:40 Be Montoya MD is Referral Physician. jr8 23:00 No provider procedures requiring assistance completed. IV discontinued, intact, rr5 bleeding controlled, No redness/swelling at site. Pressure dressing applied. Administered Medications: 22:00 Drug: Rocephin (cefTRIAXone) 1 grams Route: IM; Site: left gluteus; rr5 23:00 Follow up: Response: No adverse reaction rr5 Outcome: 22:40 Discharge ordered by . jr8 23:00 Discharged to home ambulatory, with family. rr5 23:00 Condition: stable 23:00 Discharge instructions given to patient, Instructed on discharge instructions, follow up and referral plans. medication usage, Demonstrated understanding of instructions, follow-up care, medications, Prescriptions given X 1. 23:01 Patient left the ED. rr5 Signatures: Allan Duarte PA PA jr8 Karly Faust Raymond, RN RN rr5
[2018-12-20 23:11] VITALS: BP 118/57; TEMP 98.1; O2SAT 98
== END 2018-12-20 23:01 | disposition home or self-care (01) ==
LOC: ER 21:01
DX: L03.319 Cellulitis of trunk, unspecified (principal); C50.919 Malignant neoplasm of unspecified site of unspecified female breast; D64.9 Anemia, unspecified; I10 Essential (primary) hypertension; Z79.899 Other long term (current) drug therapy; Z86.14 Personal history of Methicillin resistant Staphylococcus aureus infection
CPT/HCPCS: 36415; 85025; 96372; 99284; J0696

== ENCOUNTER 2019-03-17 06:45 | Day surgery (SDC) | payer OTHER ==
[~2019-03-17 06:45] MED LIST changes: -FENTANYL CITR 250 MCG/5 ML ONE; -GLYCOPYRROLATE 0.2 MG/ML SYR ONE; -LIDOCAINE 2% MPF 5 ML VIAL ONE; -MIDAZOLAM HCL 2 MG/2 ML INJ ONE; -NEOSTIGMINE 1 MG/ML -10 ML VIAL ONE; -PROPOFOL 200 MG/20 ML VIAL IV ONE; -ROCURONIUM 50 MG/5 ML VIAL IV ONE; +VANCOMYCIN/NS 1 gm 1 GM/250 ML BAG IV SCH
--- OUTSIDE RECORDS SUMMARY | 2019-03-17 06:49 | XMS REPORT | Clinical Summary ---
:1955 Author Organization [facility] Address [address] [place] [address] Care Team Providers Name Role Phone Estela Patel Primary Care Provider Allergies Not on File Medications No known medications Active Problems No known active problems Encounters Date Type Specialty Care Team Description 03/24/2018 Orders Only Orthopedic Surgery Adriana Sebastian MA Acute pain of left knee (Primary Dx) after 03/16/2018 Social History Tobacco Use Types Packs/Day Years Used Date Never Assessed Sex Assigned at Date Recorded Not on file Job Start Date Occupation Industry Not on file Not on file Not on file Travel History Travel Start Travel End No recent travel history available. Last Filed Vital Signs Not on file Plan of Treatment Health Maintenance Due Date Last Done Comments BREAST CANCER SCREENING 2005 COLONOSCOPY SCREENING 2005 SHINGLES VACCINES (#1) 2005 INFLUENZA VACCINE 04/09/2019 Results Not on fileafter 03/16/2018 Insurance Payer Benefit Plan / Subscriber ID Effective Dates Phone Address Type Group MEDICARE MEDICARE PART A xxxxxxxxxx 2003-Present [place], [place] Medicare AND B Advance Directives Patient has advance care planning documents on file. For more information, please contact:[phone] [place] [address]
--- OUTSIDE RECORDS SUMMARY | 2019-03-17 06:49 | XMS REPORT ---
:1955 [facility] Address [address] [place] [address] Dr. Acevedo [address] [place] [address] Care Team Providers Name Role Phone Unavailable Unavailable Unavailable Problems This patient has no known problems. Allergies, Adverse Reactions, Alerts This patient has no known allergies or adverse reactions. Medications This patient has no known medications. Encounters Start End Encounter Admission Attending Care Care Encounter Date/Time Date/Time Type Type Clinicians Facility Department ID 2019-02-06 2019-02-06 Outpatient [id number] 05:11:00 05:11:00
[2019-03-17] MEDS ORDERED: Ringers Lactate 1,000 ML IV ONE (07:10)
[2019-03-17] MEDS ORDERED: FENTANYL CITR 100 MCG/2 ML ONE (07:14)
[2019-03-17] MEDS ORDERED: PROPOFOL 200 MG/20 ML VIAL IV ONE (07:14)
[2019-03-17] MEDS ORDERED: LIDOCAINE 2% MPF 5 ML VIAL ONE (07:14)
[2019-03-17] MEDS ORDERED: MIDAZOLAM HCL 2 MG/2 ML INJ ONE (07:14)
[2019-03-17] MEDS ORDERED: BUPIVACA 0.25%/EPI 0.0005% MDV 50 ML VIAL ONE (07:24)
[2019-03-17] MEDS ORDERED: SUCCINYLCHOLINE 20 MG/ML (10 ML) IV ONE (07:40)
[2019-03-17] MEDS ORDERED: ROCURONIUM 50 MG/5 ML VIAL IV ONE (07:45)
--- NOTE | 2019-03-17 07:57 | P.OP ---
Preoperative diagnosis: RIGHT flank collection Postoperative diagnosis: RIGHT flank collection Primary procedure: Incision and Drainage of RIGHT flank collection Anesthesia: GETA Estimated blood loss: <5cc Specimen: tissue sent, cultures sent Findings: clear cyst fluid Complications: None Transferred to: Recovery Room Condition: Good
[2019-03-17] MEDS ORDERED: ONDANSETRON 4 MG/2 ML VIAL ONE (08:03)
[2019-03-17 09:04] VITALS: BP 126/71; TEMP 97.3; O2SAT 98
--- NOTE | 2019-03-17 17:35 | OP ---
Date of Procedure: 03/17/2019 Surgeon: Esau Galindo MD, Preoperative Diagnosis: Right flank cystic collection. Postoperative Diagnosis: Right flank cystic collection. Procedure Performed: Incision and drainage of right flank collection. Anesthesia: General endotracheal. Estimated Blood Loss: Less than 5 cc. Specimen: Cultures sent as well as the specimen of tissue. Findings: The patient did not have any obvious abscess, but did have a clear cyst with what appeared to be sterile like fluid approximately a quarter of centimeter in size under a right flank area of m aculopapular rash. Complications: None. Disposition: Transferred to recovery room in good condition. Procedure In Detail: After informed consent was obtained, the patient was brought to the operating r oom, prepped and draped in the usual sterile fashion. After adequate anesthesia was achieved, an ell iptical incision was made around a large firm cystic structure using a 15 blade down through the subc utaneous tissues, cystic fluid was encountered, which was appeared to be clear and sterile in gross a ppearance. This was cultured at this time for aerobic, anaerobic, speciation, and this was removed i n its entirety, sent off for pathologic examination. Hemostasis was achieved with electrocautery. T he area was copiously irrigated multiple times until completely clear. The remainder of the tissue w as examined and did not feel that there were any other fluid collections on examination of this area. As such I packed the wound, which is less than a centimeter in size, which dissected down to the cruz bcutaneous fat with 0.5 inch plain packing. Sterile dressing was placed on top. The patient tolerat ed the procedure well without evidence of complication. Transferred in good condition. All counts w ere correct at the end of the case. GABY/JOSE Voice ID: [id number] Report ID: [id number]
== END 2019-03-17 09:34 | disposition home or self-care (01) ==
LOC: OR 06:45
PROVIDERS: ATTEND Surgery
PROC: 0JB70ZX Excision of Back Subcutaneous Tissue and Fascia, Open Approach, Diagnostic (ICD-10-PCS; principal; 2019-03-17 07:30)
DX: L72.8 Other follicular cysts of the skin and subcutaneous tissue (principal); L02.91 Cutaneous abscess, unspecified; R23.8 Other skin changes; K21.9 Gastro-esophageal reflux disease without esophagitis; I10 Essential (primary) hypertension; F32.9 Major depressive disorder, single episode, unspecified; Z79.899 Other long term (current) drug therapy; Z85.3 Personal history of malignant neoplasm of breast; Z86.73 Personal history of transient ischemic attack (TIA), and cerebral infarction without residual deficits
CPT/HCPCS: 11400; 87070; 36415; 87205; 84132; 88304; 87075; 87077; 87186; J2704; J0330; J2250; J3010; J3370; J2405; 88305

== ENCOUNTER 2019-04-01 18:09 | Inpatient (IN) | payer OTHER ==
--- OUTSIDE RECORDS SUMMARY | 2019-04-01 18:12 | XMS REPORT ---
:1955 Author Organization [employer] Care Team Providers Name Role Phone Edwinsharon Esau Provider Role Unavailable Allergies No Known Allergies Problems Problem Type Condition Code Onset Dates Condition Status Problem Fullness of breast N64.89 Active Problem Vasculitis I77.6 Active Problem History of thyroid cancer Z85.850 Active Problem Depression, unspecified depression F32.9 Active type Problem History of Mcfarland's esophagus Z87.19 Active Problem Wound check, abscess Z51.89 Active Problem Mesenteric ischemia K55.9 Active Problem 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 Active Problem Diarrhea, unspecified type R19.7 Active Problem Irritable bowel syndrome with K58.1 Active constipation Problem Anxiety about health F41.8 Active Problem GERD without esophagitis K21.9 Active Problem History of stroke Z86.73 Active Problem Benign hypertension I10 Active Problem Generalized abdominal pain R10.84 Active Problem Lymphadenopathy R59.1 Active Problem History of breast cancer Z85.3 Active Problem 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
--- OUTSIDE RECORDS SUMMARY | 2019-04-01 18:12 | XMS REPORT | Clinical Summary ---
:1955 Author Organization [facility] Address [address] [place] [address] Care Team Providers Name Role Phone CollinDayamiAna Estela Primary Care Provider Allergies Not on File Medications No known medications Active Problems No known active problems Social History Tobacco Use Types Packs/Day Years [...] INFLUENZA VACCINE 04/09/2019 Results Not on fileafter 03/31/2018 Insurance Payer Benefit Plan / Subscriber ID Effective Dates Phone Address Type Group MEDICARE MEDICARE PART A xxxxxxxxxx 2003-Present [place], [place] Medicare AND B Advance Directives Patient has advance care planning documents on file. For more information, please contact:[facility] [place] [address]
--- OUTSIDE RECORDS SUMMARY | 2019-04-01 18:12 | XMS REPORT ---
:1955 Author [facility] Address [address] [place] [address] Dr. Acevedo [address] [place] [address] Care Team Providers Name Role Phone Unavailable [...]
--- OUTSIDE RECORDS SUMMARY | 2019-04-01 18:12 | XMS REPORT ---
:1955 Author Organization eClinicalWorks Care Team Providers Name Role Phone Lacey Mackay Provider Role Unavailable Allergies, Adverse Reactions, Alerts Substance Reaction Event Type Sulfacetamide Sodium Info Not Available Drug Allergy Quinidine Sulfate Info Not Available Drug Allergy Propoxyphene HCl Info Not Available Drug Allergy Meperidine HCl Info Not Available Drug Allergy Iodine Info Not Available Drug Allergy Guaifenesin Info Not Available Drug Allergy Droperidol Info Not Available Drug Allergy PCN Info Not Available Drug Allergy Ciprofloxacin Info Not Available Drug Allergy MORPHINE Info Not Available Drug Allergy Butorphanol Tartrate Info Not Available Drug Allergy Analgesic Info Not Available Drug Allergy IVP dye Info Not Available Drug Allergy Problems Problem Type Condition Code Onset Dates Condition Status Assessment Anxiety about health F41.8 Active Problem Lymphadenopathy R59.1 Active Assessment History of thyroid cancer Z85.850 Active Problem 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 Active Assessment History of breast cancer Z85.3 Active Problem Fullness of breast N64.89 Active Problem Vasculitis I77.6 Active Problem History of thyroid cancer Z85.850 Active Problem Depression, unspecified depression F32.9 Active type Problem History of Mcfarland's esophagus Z87.19 Active Assessment GERD without esophagitis K21.9 Active Assessment History of Mcfarland's esophagus Z87.19 Active Problem Wound check, abscess Z51.89 Active Assessment Irritable bowel syndrome with K58.1 Active constipation Problem Mesenteric ischemia K55.9 Active Problem 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 Active Problem Diarrhea, unspecified type R19.7 Active Problem Irritable bowel syndrome with K58.1 Active constipation Problem Anxiety about health F41.8 Active Problem GERD without esophagitis K21.9 Active Assessment Benign hypertension I10 Active Problem History of stroke Z86.73 Active Problem Benign hypertension I10 Active Problem Generalized abdominal pain R10.84 Active Problem History of breast cancer Z85.3 Active Medications Medication Code Code Instructions Start End Status Dosage System Date Date Lasix [facility] [address]-92 20 MG Orally Active 1 tablet Twice a day Hibiclens [facility] 59317922077 4 % Externally February Active as directed daily 2018 Curity Plain [facility] 05116018965 - Pack 09/10 Active as directed Packing Strip daily 2018 Phenergan [facility] 94959716356 25 MG/ML Active 1 ml as Injection needed every 6 hrs Levothyroxine [facility] 89448689225 100 MCG Orally Active 1 tablet on Sodium Once a day an empty stomach in the morning Meclizine HCl [facility] 47558942456 25 MG Orally Active 1 tablet as Once a day needed K-Tab [facility] [address]-52 10 MEQ Orally Active 2 tablets Twice a day with food Sterile Water [facility] 91360784884 - Irrigation February Active as directed for Irrigation of wounds , daily 2018 2018 Lisinopril [facility] [address]-06 10 MG Orally Active 1 tablet Once a day Benadryl Allergy [facility] [address]-60 25 MG Orally March Active 2 tablet as every 12 hrs , needed 2018 Bismuth [facility] [address]-79 525 MG/15ML Active 30 ml as Subsalicylate Orally Four needed times a day ProAir HFA [facility] 77759048234 108 (90 Base) Active 2 puffs as MCG/ACT needed Inhalation every 6 hrs Aciphex [facility] 26304126206 20 MG Orally Active 1 tablet Once a day Valium [facility] [address]-27 10 MG Orally Active 1 tablet as Three times a needed BID day PRN anxiety Clindamycin HCl [facility] 07007900829 300mg p.o. q 8 Active one hrs BusPIRone HCl [facility] 34645753622 10 MG Orally Active 1 tablet Three times a day Santyl [facility] 97555196958 250 UNIT/GM February Active 1 application Externally , to affected Once a day to 2018 2018 area clean wound Propranolol HCl [facility] [address]-36 80 MG Orally Active 1 tablet Once a day Dakins [facility] [address]-71 0.5 % March Active 1 application Externally , , to affected Once a day to 2018 2018 area clean wound Results No Known Results Summary Purpose eClinicalWorks Submission
[2019-04-01] MEDS: NA CHLORIDE 0.9% 1,000 ML IV SCH (19:00)
[2019-04-01 19:42] LABS: Absolute Lymphocytes (CBC) 1.9 K/uL (0.7-4.9); Basophils % 0.7 % (0-1.3); Hematocrit 40.1 % (36.0-45.0); Lymphocytes % 33.8 % (15.3-44.8); MPV 9.3 fL (7.6-11.3); RBC Red Blood Cell Count 4.71 M/uL (3.86-4.86)
[2019-04-01 19:56] LABS: Albumin 3.7 g/dL (3.4-5.0); Bilirubin Total 0.3 mg/dL (0.2-1.0); Potassium 3.4 mmol/L (3.5-5.1); Protein, Total 7.6 g/dL (6.4-8.2)
[2019-04-01] MEDS ORDERED: DIPHENHYDRAMINE 25 MG TAB/CAP PO SCH (21:00)
[2019-04-01] MEDS ORDERED: VANCOMYCIN 1.75 GM in NA CHLORIDE 0.9% 500 ML IV SCH (22:00)
[2019-04-01] MEDS ORDERED: Levofloxacin 750mg IV 750 MG/150 ML BAG IV SCH (22:00)
[2019-04-01] MEDS ORDERED: DIAZEPAM 5 MG TABLET PO PRN (22:29)
[2019-04-01 23:23] LABS: Urine Appearance CLEAR; Urine Bilirubin NEGATIVE (NEG); Urine Blood 2+ (NEG); Urine Color YELLOW; Urine Glucose NEGATIVE (NEG); Urine Microscopic Reflex ORDER UMIC; Urine Protein NEGATIVE (NEG); Urine Specific Gravity 1.025 (1.005-1.030); Urine Urobilinogen 0.2 mg/dL (0.2-1.0)
[2019-04-01 23:31] LABS: Calcium Oxalate Crystals- Ur MODERATE (NONE SEEN); Urine Bacteria <20 /HPF (<20); Urine Culture Reflex Order NOT NEEDED; Urine Mucus 1+ /HPF (NONE SEEN); Urine RBC <5 /HPF (NONE SEEN)
[2019-04-02 01:41] VITALS: BMI 29.9
[2019-04-02] MEDS: NA CHLORIDE 0.9% 1,000 ML IV SCH ×4 (02:46→16:33)
[2019-04-02] MEDS: DIPHENHYDRAMINE 25 MG TAB/CAP PO PRN (02:46)
[2019-04-02] MEDS: Levofloxacin 750mg IV 750 MG/150 ML BAG IV SCH (02:47)
[2019-04-02] MEDS ORDERED: VANCOMYCIN 1 GM/VIAL ONE (03:18)
[2019-04-02] MEDS ORDERED: NA CHLORIDE 0.9% 500 ML ONE (03:20)
[2019-04-02] MEDS ORDERED: VANCOMYCIN 1.75 GM in NA CHLORIDE 0.9% 500 ML IV ONE (04:00)
[2019-04-02] MEDS: ENOXAPARIN 40 MG/0.4 ML SQ SCH (09:30)
--- NOTE | 2019-04-02 09:30 | RAD REPORT ---
EXAM DESCRIPTION: RAD - Chest Single View - 04/02/2019 4:29 am CLINICAL HISTORY: PICC line placement COMPARISON: October 2018 FINDINGS: Portable chest was obtained following placement of a right upper extremity PICC line. The catheter tip is in the mid SVC.
[2019-04-02] MEDS ORDERED: BISMUTH SUBSALICYLATE 525 MG PO PRN (10:47)
--- NOTE | 2019-04-02 11:05 | P.HP ---
Certification for Inpatient Patient admitted to: Inpatient With expected LOS: <2 Midnights Patient will require the following post-hospital care: None Practitioner: I am a practitioner with admitting privileges, knowledge of patient current condition, hospital course, and medical plan of care. Services: Services provided to patient in accordance with Admission requirements found in Title 42 Section 412.3 of the Code of Federal Regulations Patient History Date of Service: 04/02/19 Primary Care Provider: Shanta Mackay Reason for admission: Sepsis History of Present Illness: Patient is new to [facility]. The patient has a history of non healing ulcers and abcess. She is being treated by Dr. Galindo. She had breast implants after a double mastectomy. She has since having problems with these abcess and ulcer. Called the office last night and stated she had a new ulcer and a fever of 102. Was sent for admission with iv fluids and antibiotics. Allergies droperidol Allergy (Severe, Verified 11/25/18 08:51) Anaphylaxis Iodine and Iodide Containing Produc Allergy (Severe, Verified 04/02/19 00:18) Anaphylaxis acetaminophen [From Vicodin] Allergy (Verified 04/02/19 00:18) Rash butorphanol Allergy (Verified 04/02/19 00:18) Rash ciprofloxacin Allergy (Verified 04/02/19 00:18) Rash codeine Allergy (Verified 04/02/19 00:18) Rash guaifenesin Allergy (Verified 04/02/19 00:18) Nausea/Vomiting hydrocodone bitartrate [From Vicodin] Allergy (Verified 04/02/19 00:18) Nausea/Vomiting/rash meperidine HCl [From Demerol] Allergy (Verified 04/02/19 00:18) Hives/Rash Penicillins Allergy (Verified 04/02/19 00:18) Rash prochlorperazine edisylate [From Compazine] Allergy (Verified 04/02/19 00:18) Hives/Rash prochlorperazine maleate [From Compazine] Allergy (Verified 04/02/19 00:18) Hives/Rash propoxyphene Allergy (Verified 04/02/19 00:18) Nausea/Vomiting Quinolones Allergy (Verified 04/02/19 00:18) Nausea/Vomiting/Rash Sulfa (Sulfonamide Antibiotics) Allergy (Verified 04/02/19 00:18) Nausea/Vomiting Home medications list reviewed: Yes Home Medications: Buspirone HCl [Buspar*] 5 mg PO BID 07/18/15 Diphenhydramine [Benadryl*] 50 mg PO BID 07/18/15 Furosemide [Lasix*] 20 mg PO BID 07/18/15 Meclizine HCl [Motion Relief] 25 mg PO PRN PRN 07/18/15 Potassium Chloride [K-Tab ER] 10 meq PO BID 07/18/15 Propranolol [Inderal*] 40 mg PO [id number] 07/18/15 Levothyroxine Sodium [Tirosint] 100 mcg PO DAILY 08/16/15 Rabeprazole Sodium [Aciphex] 20 mg PO DAILY 10/22/18 Bismuth Subsalicylate [Maalox] 525 mg PO DAILY PRN 11/11/18 diazePAM [Valium*] 5 mg PO BID 04/01/19 - Past Medical/Surgical History Has patient received pneumonia vaccine in the past: Yes Diabetic: No -: breast cancer -: HPN -: jorje's esophagus -: HYPERTENSION -: ANXIETY -: DOUBLE MASTECTOMY -: HYSTORECTOMY -: 30+ DILATION OF ESOPHAGUS -: HIATAL HERNIA REPAIR -: SEVERAL LYSIS OF ABDOMINAL ADHESIONS -: BOWEL RESECTION FROM OBSTRUCTION -: Cyst removal at tendon R hand - Family History Mother -: Heart disease, Hypertension, Lung disease, Diabetes, Kidney disease Notes: 5 BYPASSES- Father -: Heart disease, Hypertension, Cancer Notes: PROSTATE CANCER Sister -: Hypertension, Cancer Notes: PELON-BREAST CANCER METS TO BLADDER. . RANDA-HYPERTENSION - Social History Smoking Status: Never smoker Alcohol use: No CD- Drugs: No Caffeine use: Yes Place of Residence: Home Review of Systems 10-point ROS is otherwise unremarkable General: Fever, Malaise Physical Examination - Vital Signs Temperature: 97.7 F Blood Pressure: 123/67 Pulse: 67 Respirations: 16 Pulse Ox (%): 95 - Physical Exam General: Alert, In no apparent distress HEENT: Atraumatic, PERRLA, Mucous membr. moist/pink, EOMI, Sclerae nonicteric Neck: Supple, 2+ carotid pulse no bruit, No LAD, Without JVD or thyroid abnormality Respiratory: Clear to auscultation bilaterally, Normal air movement Cardiovascular: Regular rate/rhythm, Normal S1 S2 Gastrointestinal: Normal bowel sounds, No tenderness Musculoskeletal: No tenderness Integumentary: No rashes, Other (surgical and complicated abcess on the upper chest and thorax. ) Neurological: Normal gait, Normal speech, Normal strength at 5/5 x4 extr, Normal tone, Normal affect Lymphatics: No axilla or inguinal lymphadenopathy - Studies Laboratory Data (last 24 hrs) 04/01/19 19:20: Sodium 141, Potassium 3.4 L, BUN 15, Creatinine 1.01, Glucose 97 , Total Bilirubin 0.3, AST 14 L, ALT 20, Alkaline Phosphatase 105 04/01/19 19:20: WBC 5.7, Hgb 13.2, Hct 40.1, Plt Count 256 Assessment and Plan - Problems (Diagnosis) (1) Depression Current Visit: Yes Status: Acute Plan: Patient is on multiple medications. However a lot of sedatives. Her pcp discussed councilling will reinforce her. She is on valium, benadryl, meclizine and occasional phenergan. so lots of sedation. COLD ROLLING COORDINATOR aware shows zolpidem as well. Tylenol #3. She has an overdose risk score of 460 . correlating to a odds risk of 25 times for overdose in the next month. There has also been a question of not following up with referalls. She was difficult to convince to come to the hospital last night. So non compliance is an issue as well. She should probable be worked up for autoimmune cause of these abcess. will need to have a difficult conversation with the patient and her new PCP Qualifiers: Depression Type: major depressive disorder Major depression recurrence: recurrent Active/Remission status: currently active Major depression episode severity: moderate Qualified Code(s): F33.1 - Major depressive disorder, recurrent, moderate (2) Breast abscess of female Current Visit: No Status: Acute Plan: Was seen by Dr. Galindo. The patient is doing well from a wound point of view. Will test andrew and lupus work up. Will see if cultures come back positive. Can Discharge on oral antibiotics. Refer to rheumatology as an outpatient. Will have her follow up with Shanta. Her wound care is being addressed by Dr Galindo (3) HTN (hypertension) Current Visit: No Status: Chronic Plan: stable will continue home medications. Qualifiers: Hypertension type: essential hypertension Qualified Code(s): I10 - Essential (primary) hypertension (4) Hypothyroidism Current Visit: No Status: Chronic Plan: check tsh. Will follow up out patinet. Qualifiers: Hypothyroidism type: postoperative Qualified Code(s): E89.0 - Postprocedural hypothyroidism Discharge Plan: Home Plan to discharge in: 24 Hours - Advance Directives Does patient have a Living Will: No Does patient have a Durable POA for Healthcare: No - Code Status/Comfort Care Code Status Assessed: No Code Status: Full Code Physician Review: Patient Assessed, Agree with Above Assessment and Plan Critical Care: No Time Spent Managing Pts Care (In Minutes): 80
[2019-04-02] MEDS: LEVOTHYROXINE SOD 0.1 MG TAB PO SCH (11:36)
[2019-04-02] MEDS: ACETAMINOPHEN 325 MG TABLET PO PRN (11:36)
[2019-04-02] MEDS: COLLAGENASE 30 GM OINTMENT TOP SCH (11:37)
--- NOTE | 2019-04-02 14:21 | CON ---
Date of Consultation: 04/02/2019 Brief History Of Present Illness: The patient is a 63-year-old female, known to me from [facility] with a past medical history of breast cancer, hypertension, CHF, chronic back pain efrain g with multiple surgeries in the past, admitted for breast abscess in the past. She had an extensive surgical history and difficulty with rejected implants. She had multiple abscesses in the past and has been treated as an outpatient with wound care. She has seen Dr. Montoya, Dr. Sherman Amin of [facility] regarding her breast wounds as well as a recent operation for myself on a right flank wound, which looked to be possibly associated with varicella zoster/shingles. She presents to Dr. Rubin valverde's office with complaints of fever and pain to her wounds. Dr. Damian admitted her for IV antibiot ics with concern of infection and bacteremia. Past Medical History: Significant for breast cancer, hypertension, Mcfarland esophagus, HPN, anxiety. Past Surgical History: Double mastectomy, hysterectomy, 30+ dilatations of her esophagus, hiatal her mary, several abdominal lysis of adhesions, bowel resection and a right flank surgery from drainage of a fluid collection. Family History: Mother had hypertension, heart disease, lung cancer, diabetes, kidney disease, had 5 -vessel bypass. Father had heart disease, hypertension, cancer, and had prostate cancer specifically . Social History: She denies alcohol or recreational drug use. Review of Systems: Ten-point review of systems other than HPI, denies. Allergies: TO DROPERIDOL, IODINE, ACETAMINOPHEN, BUTORPHANOL, CIPRO, CODEINE, GRISEOFULICIN, HYDROCO DONE, MEPERIDINE, PENICILLIN, COMPAZINE, PROPOXYPHENE, QUINOLONES, SULFA. Home Medications: BuSpar, Valium, Benadryl, Lasix, meclizine, potassium chloride, Inderal, Tirosint, ProAir, AcipHex, and Maalox. Physical Examination: Vital Signs: At the time of my examination, blood pressure of 123/67, respiratory rate 16, temperatu re 97.7, pulse of 67, pain level 0. General: She is awake, alert, oriented. Psychiatric: She is appropriate and conversive. HEENT: She is normocephalic. Sclerae icteric. Mucous membranes are moist. Oropharynx clear. Neck: Supple. No JVD. Chest: Normal expansion and excursion. Breasts: She has 2 inframammary wounds, which are healing at this time with no evidence of active in fection or fluid collection. She does have some fullness to the left medial aspect of her breast whe re reconstruction was performed previously. It is nontender at this time. There are no skin changes over the top of this. The inframammary wounds are smaller and are healing based on my previous expo sure to her last week in clinic. Skin: She has a right flank wound, which is granulating well with no evidence of infection. The zos ter appearing pustules appear much improved and significantly smaller and less red and erythematous c ompared with prior and they are nontender at this time. She also has a left upper chest wound in the infraclavicular position, which was performed by Dr. Sherman Amin, which looks to be granulating mati te well and healing. The remainder of her skin exam is essentially unremarkable with respect to woun ds. Laboratory Data: She had a laboratory exam, which reveals a white blood cell count of 5.7, hemoglobi n is 13.2, hematocrit of 40.1, platelet count is 256, neutrophils 56%. Sodium is 141, potassium 3.4, chloride 104, carbon dioxide 30, BUN 15, creatinine 1.0, and total bilirubin 0.3. Assessment And Plan: This is a 64-year-old female, who comes in with multiple skin lesions and wound s. 1.IV fluid hydration. 2.Antibiotic coverage. 3.Continue wound care with daily packing and dressing change with Santyl and 1/4-inch iodoform packi ng into the 2 wounds as stated. 4.I recommend ID consult for Dr. Shirley to determine if the patient needs some long-term antibiotics based on her frequent re-admissions for wounds and difficulty in healing from her multiple surgeries . 5.I recommend dermatology consult as well and continued wound care. No surgical intervention requir ed at this time. Thank you for this interesting consult. GABY/JOSE Voice ID: [id number] Report ID: [id number]
--- NOTE | 2019-04-02 16:53 | P.PN ---
Date of Service: 04/02/19 Have had a 20min conversation with the patient and . Her overdose score is 460 meaning a 25 times the risk of overdose in the next month. The patient had typical responses. That I could call the [facility] in [place]. I answered no need as I have the federal reports of all her controlled meds in the sheet I had handed her. Her states that all of these were given after surgery. This is untrue. I have a list stating she was getting regular high dose of hydrocodones in [place]. It is also irrelevant as she definitely has pain and anxiety. However her risk of overdose will remain high if we continue her medications at this rate.
[2019-04-02] MEDS ORDERED: DIAZEPAM 5 MG TABLET PO SCH (21:00)
[2019-04-02] MEDS ORDERED: DIPHENHYDRAMINE 25 MG TAB/CAP PO SCH (21:00)
[2019-04-02] MEDS: BUSPIRONE HCL 5 MG TABLET PO SCH (21:20)
[2019-04-02] MEDS: POTASSIUM CL SA 10 MEQ TAB PO SCH (21:20)
[2019-04-02] MEDS ORDERED: VANCOMYCIN 1.25 GM in NA CHLORIDE 0.9% 250 ML IVPB SCH (22:00)
[2019-04-02 22:26] VITALS: O2SAT 96
[2019-04-03] MEDS: NA CHLORIDE 0.9% 1,000 ML IV SCH (01:07)
[2019-04-03] MEDS: Levofloxacin 750mg IV 750 MG/150 ML BAG IV SCH (02:11)
[2019-04-03] MEDS: DIPHENHYDRAMINE 25 MG TAB/CAP PO PRN (02:11)
[2019-04-03] MEDS ORDERED: VANCOMYCIN 1.5 GM in NA CHLORIDE 0.9% 500 ML IVPB SCH (03:00)
[2019-04-03] MEDS ORDERED: VANCOMYCIN 1.25 GM in NA CHLORIDE 0.9% 250 ML IVPB SCH (04:00)
[2019-04-03] MEDS: LEVOTHYROXINE SOD 0.1 MG TAB PO SCH (05:56)
[2019-04-03] MEDS ORDERED: PROPRANOLOL HCL 40 MG TAB PO SCH (06:00)
[2019-04-03] MEDS ORDERED: PANTOPRAZOLE 40MG TABLET PO SCH (06:30)
[2019-04-03] MEDS: ENOXAPARIN 40 MG/0.4 ML SQ SCH (09:00)
[2019-04-03] MEDS: BUSPIRONE HCL 5 MG TABLET PO SCH (09:06)
[2019-04-03] MEDS: POTASSIUM CL SA 10 MEQ TAB PO SCH (09:06)
[2019-04-03] MEDS: ACETAMINOPHEN 325 MG TABLET PO PRN (09:07)
[2019-04-03] MEDS: COLLAGENASE 30 GM OINTMENT TOP SCH (09:10)
--- NOTE | 2019-04-03 11:54 | P.DS ---
Admission Date: 04/01/19 Discharge Date: 04/03/19 Primary Care Provider: Shanta Mackay Disposition: ROUTINE DISCHARGE Discharge Condition: FAIR Reason for Admission: Sepsis - Problems (1) Depression Current Visit: Yes Status: Acute Qualifiers: Depression Type: major depressive disorder Major depression recurrence: recurrent Active/Remission status: currently active Major depression episode severity: moderate Qualified Code(s): F33.1 - Major depressive disorder, recurrent, moderate (2) Breast abscess of female Current Visit: No Status: Acute (3) HTN (hypertension) Current Visit: No Status: Chronic Qualifiers: Hypertension type: essential hypertension Qualified Code(s): I10 - Essential (primary) hypertension (4) Hypothyroidism Current Visit: No Status: Chronic Qualifiers: Hypothyroidism type: postoperative Qualified Code(s): E89.0 - Postprocedural hypothyroidism (5) Prescription drug abuse Current Visit: Yes Status: Acute Brief History of Present Illness: Patient is new to [facility] practice. The patient has a history of non healing ulcers and abcess. She is being treated by Dr. Galindo. She had breast implants after a double mastectomy. She has since having problems with these abcess and ulcer. Called the office last night and stated she had a new ulcer and a fever of 102. Was sent for admission with iv fluids and antibiotics. Hospital Course: Patient was admitted for possible sepsis. Which was ruled out. However she is not healing. Have started an autoimmune work up and will refer to Rheumatology. The new MAINSTREAMING FACILITATOR aware drug overdose index was 490. Therefore we had the conversation. will have her follow up with Jose A Mackay. Hopefully we can wean her on pain medications and valium. She also uses a lot of OTC sedatives. Hopefully the patient will follow up with me more frequently Vital Signs/Physical Exam: Temp Pulse Resp BP Pulse Ox 97.6 F 65 16 117/70 99 04/03/19 08:00 04/03/19 08:00 04/03/19 08:00 04/03/19 08:00 04/03/19 08:00 General: Alert, In no apparent distress HEENT: Atraumatic, PERRLA, EOMI Neck: Supple, JVD not distended Respiratory: Clear to auscultation bilaterally, Normal air movement Cardiovascular: Regular rate/rhythm, Normal S1 S2 Gastrointestinal: Normal bowel sounds, No tenderness Musculoskeletal: No tenderness Integumentary: No rashes Neurological: Normal speech, Normal tone, Normal affect Lymphatics: No axilla or inguinal lymphadenopathy Laboratory Data at Discharge: WBC 5.7 K/uL (4.3-10.9) 04/01/19 19:20 Hgb 13.2 g/dL (12.0-15.0) 04/01/19 19:20 Hct 40.1 % (36.0-45.0) 04/01/19 19:20 Plt Count 256 K/uL (152-406) 04/01/19 19:20 Sodium 141 mmol/L (136-145) 04/01/19 19:20 Potassium 3.4 mmol/L (3.5-5.1) L 04/01/19 19:20 BUN 15 mg/dL (7-18) 04/01/19 19:20 Creatinine 1.01 mg/dL (0.55-1.3) 04/01/19 19:20 Glucose 97 mg/dL (74-106) 04/01/19 19:20 Total Bilirubin 0.3 mg/dL (0.2-1.0) 04/01/19 19:20 AST 14 U/L (15-37) L 04/01/19 19:20 ALT 20 U/L (12-78) 04/01/19 19:20 Alkaline Phosphatase 105 U/L (45-117) 04/01/19 19:20 Home Medications: Buspirone HCl [Buspar*] 5 mg PO BID 07/18/15 Diphenhydramine [Benadryl*] 50 mg PO BID 07/18/15 Furosemide [Lasix*] 20 mg PO BID 07/18/15 Meclizine HCl [Motion Relief] 25 mg PO PRN PRN 07/18/15 Potassium Chloride [K-Tab ER] 10 meq PO BID 07/18/15 Propranolol [Inderal*] 40 mg PO [id number] 07/18/15 Levothyroxine Sodium [Tirosint] 100 mcg PO DAILY 08/16/15 Rabeprazole Sodium [Aciphex] 20 mg PO DAILY 10/22/18 Bismuth Subsalicylate [Maalox] 525 mg PO DAILY PRN 11/11/18 diazePAM [Valium*] 5 mg PO BID 04/01/19 Cholecalciferol (Vitamin D3) [Vitamin D 5,000 Iu Cap] 5,000 unit PO DAILY 90 Days #90 cap 04/03/19 Doxycycline Monohydrate 100 mg PO BIDWM 7 Days #14 tablet 04/03/19 New Medications: Cholecalciferol (Vitamin D3) [Vitamin D 5,000 Iu Cap] 5,000 unit PO DAILY 90 Days #90 cap Doxycycline Monohydrate 100 mg PO BIDWM 7 Days #14 tablet Diet: Regular Activity: Ad celine Followup: Shanta Mackay NP [Primary Care Provider] - 1 Week SVITLANA MILIAN [OUTSIDE PHYSICIAN] - 1-2 Weeks Esau Galindo MD [ACTIVE - CAN ADMIT] - 1-2 Weeks Time spent managing pt's care (in minutes): 35
[2019-04-03 12:41] VITALS: BP 114/55; TEMP 97
[2019-04-07 21:31] LABS: Vitamin D 1,25-Dihydroxy Total 61 pg/mL (18-72); Vitamin D,1,25-OH2, D2 <8 pg/mL
== END 2019-04-03 13:25 | disposition home or self-care (01) | DRG 920 ==
LOC: 2ND 18:09
PROVIDERS: ADMIT Internal Medicine; ATTEND Internal Medicine
PROC: 02HV33Z Insertion of Infusion Device into Superior Vena Cava, Percutaneous Approach (ICD-10-PCS; principal; 2019-04-01)
DX: T85.79XA Infection and inflammatory reaction due to other internal prosthetic devices, implants and grafts, initial encounter (principal); F33.1 Major depressive disorder, recurrent, moderate; N61.1 Abscess of the breast and nipple; Y83.1 Surgical operation with implant of artificial internal device as the cause of abnormal reaction of the patient, or of later complication, without mention of misadventure at the time of the procedure; F19.10 Other psychoactive substance abuse, uncomplicated; I10 Essential (primary) hypertension; E89.0 Postprocedural hypothyroidism; G89.29 Other chronic pain; M54.9 Dorsalgia, unspecified; Z85.3 Personal history of malignant neoplasm of breast; Z88.5 Allergy status to narcotic agent; Z88.0 Allergy status to penicillin
CPT/HCPCS: 36415; 71045; 80053; 81003; 81015; 82306; 82652; 84443; 85025; 86038; 86225; 87040; 87070; 87077; 87186; 87205; J1650; J3590; J7030

== ENCOUNTER 2019-04-26 13:03 | Emergency (ER) | payer OTHER ==
--- OUTSIDE RECORDS SUMMARY | 2019-04-26 13:06 | XMS REPORT ---
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
--- OUTSIDE RECORDS SUMMARY | 2019-04-26 13:06 | XMS REPORT ---
[...] End Status Dosage System Date Date Lasix [facility] [address]-70 20 MG Orally Active 1 tablet Twice a day Hibiclens [facility] 99904492711 4 % Externally February Active as directed daily 2018 Curity Plain [facility] 88370270849 - Pack 09/10 Active as directed Packing Strip daily 2018 Phenergan [facility] 66255703768 25 MG/ML Active 1 ml as Injection needed every 6 hrs Levothyroxine [facility] 02385043935 100 MCG Orally Active 1 tablet on Sodium Once a day an empty stomach in the morning Meclizine HCl [facility] 90243105232 25 MG Orally Active 1 tablet as Once a day needed K-Tab [facility] [address]-10 10 MEQ Orally Active 2 tablets Twice a day with food Sterile Water [facility] 88871554681 - Irrigation February Active as directed for Irrigation of wounds , daily 2018 2018 Lisinopril [facility] [address]-35 10 MG Orally Active 1 tablet Once a day Benadryl Allergy [facility] [address]-40 25 MG Orally March Active 2 tablet as every 12 hrs , needed 2018 Bismuth [facility] [address]-27 525 MG/15ML Active 30 ml as Subsalicylate Orally Four needed times a day ProAir HFA [facility] 36331204023 108 (90 Base) Active 2 puffs as MCG/ACT needed Inhalation every 6 hrs Aciphex [facility] 06178100491 20 MG Orally Active 1 tablet Once a day Valium [facility] [address]-75 10 MG Orally Active 1 tablet as Three times a needed BID day PRN anxiety Clindamycin HCl [facility] 10610335988 300mg p.o. q 8 Active one hrs BusPIRone HCl [facility] 56469249625 10 MG Orally Active 1 tablet Three times a day Santyl [facility] 31027031682 250 UNIT/GM February Active 1 application Externally , to affected Once a day to 2018 2018 area clean wound Propranolol HCl [facility] [address]-23 80 MG Orally Active 1 tablet Once a day Dakins [facility] [address]-89 0.5 % March Active 1 application Externally , , to affected Once a day to 2018 2018 area clean wound Results No Known Results Summary Purpose eClinicalWorks Submission
--- OUTSIDE RECORDS SUMMARY | 2019-04-26 13:06 | XMS REPORT | Clinical Summary ---
:1955 Author Organization [facility] Address [address] [place] [address] Care Team Providers Name Role Phone Estela [...] INFLUENZA VACCINE 04/09/2019 Results Not on fileafter 04/25/2018 Insurance Payer Benefit Plan / Subscriber ID Effective Dates Phone Address Type Group MEDICARE MEDICARE PART A xxxxxxxxxx 2003-Present [place], [place] Medicare AND B Advance Directives Type Date Recorded Patient Berry Picker Explanation Advance Directives, Living Will and Medical Power of Machine Woodworking Sander
--- OUTSIDE RECORDS SUMMARY | 2019-04-26 13:06 | XMS REPORT ---
:1955 Author Organization [facility] Address [address] [place] [address] [address] [place] [address] Care Team Providers Name Role Phone Unavailable Unavailable Unavailable Payers Payer Name Policy Type Policy Number Effective Date Expiration Date Problems This patient has no known problems. Allergies, Adverse Reactions, Alerts This patient has no known allergies or adverse reactions. Medications This patient has no known medications. Encounters Start End Encounter Admission Attending Care Care Encounter Date/Time Date/Time Type Type Clinicians Facility Department ID 2019-02-06 2019-02-06 Outpatient [id number] 05:11:00 05:11:00 Results Test Description Test Time Test Comments Text Results Atomic Results Result Comments - XR 2019-04-16 FAX: Alicia Mejia MD [phone] [place]: St: SHOULDER 11:08:00 REG 1 V RT Name: JUAN F LIU [facility] [place] : 1955 Age/S: 64/F [address] [place] [address] Blvd Unit # : [id number] Loc: [place] [address] Phys : Alicia Mejia MD Acct : [id number] Dis Date: Status: REG [facility] [place] [place] PHONE #: [phone] Exam Date: 04/16/2019 1059 FAX #: [phone] Reason: PICC PLACEMENT EXAMS: CPT CODE: [id number] XR SHOULDER 1 V RT 54464 Study: - XR SHOULDER 1 V RT 04/16/2019 10:47 AM Patient Name: JUAN F LIU MR: [id number] : 1955; Age: 64 years y/o Female Ordering Physician: Alicia Mejia MD Clinical Indication: PICC PLACEMENT Comparison: None RIGHT SHOULDER, 1 view: No acute fracture, dislocation, or suspicious focal osseous lesion. Right PICC line tip overlies the superior vena cava. The soft tissues are normal. Impression: Right PICC line tip overlies the superior vena cava. SL: [id number] at 1108 Reported and signed by: Ricco Moe M.D. CC: Alicia Mejia MD Technologist: RT Jero(R) Trnscrd Date/Time/By: 04/16/2019 (1108) : By: [email or web address] Orig Print D/T: S: 04/16/2019 (1111) PAGE 1 Signed Report
--- OUTSIDE RECORDS SUMMARY | 2019-04-26 13:06 | XMS REPORT ---
:1955 Author Organization eClinicalWorks Care Team Providers Name Role Phone EdwinsharonEsau Provider Role Unavailable Allergies No Known Allergies [...]
--- OUTSIDE RECORDS SUMMARY | 2019-04-26 13:07 | XMS REPORT ---
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 q 8 Active one hrs Benadryl Allergy ND 60209618486 25 MG Orally March Active 2 tablet as every 12 hrs , 2018 Lisinopril [facility] 24000033951 10 MG Orally Active 1 tablet Once a day Curity Plain [facility] 48047298249 - Pack 09/10 Active as directed Packing Strip daily 2018 Meclizine HCl [facility] 05831107598 25 MG Orally Active 1 tablet as Once a day needed Dakins [facility] [address]-40 0.5 % March Active 1 application Externally , to affected Once a day to 2018 2018 area clean wound Phenergan [facility] 09897120207 25 MG/ML Active 1 ml as Injection needed every 6 hrs Levothyroxine [facility] 16811679534 100 MCG Orally Active 1 tablet on Sodium Once a day an empty stomach in the morning Bismuth [facility] [address]-88 525 MG/15ML Active 30 ml as Subsalicylate Orally Four needed times a day Valium [facility] 36414187548 10 MG Orally Active 1 tablet as Three times a needed BID day PRN anxiety Results No Known Results Summary Purpose eClinicalWorks Submission
--- NOTE | 2019-04-26 14:04 | EDPHYS ---
Physician Documentation [facility] Name: Carine Sheikh Age: 64 yrs Sex: Female : 1955 Arrival Date: 04/26/2019 Time: 13:04 Bed 12 Private MD: ED Physician Carlos Melo HPI: 04/26 13:38 This 64 yrs old Female presents to ER via Ambulatory with complaints of PICC snw line bleeding. 13:38 Onset: The symptoms/episode began/occurred acutely. Associated signs and symptoms: The snw patient has no apparent associated signs or symptoms. Modifying factors:. The patient has not experienced similar symptoms in the past. pt is rec'ing medications through PICC to right upper arm, post last night's dose, picc hep-lock was not screwed on well and came off during the night. Pt family called PICC nurse and was told to flush line and infuse medications and flush again and wrap with gauze. Pt did so and then noted blood coming from port. Pt came to ED to get replacement luer-lock. Historical: - Allergies: 13:15 ACETAMINOPHEN; tw2 13:15 butorphanol tartrate; tw2 13:15 Ciprofloxacin; tw2 13:15 Codeine; tw2 13:15 Droperidol; tw2 13:15 GUAIFENESIN; tw2 13:15 hydrocodone bitartrate; tw2 13:15 Iodine and Iodide Containing Products; tw2 13:15 meperidine HCl; tw2 13:15 Morphine; tw2 13:15 PENICILLINS; tw2 13:15 prochlorperazine Edisylate; tw2 13:15 Prochlorperazine Maleate; tw2 13:15 PROPOXYPHENE; tw2 13:15 QUINOLONES; tw2 13:15 Sulfa (Sulfonamide Antibiotics); tw2 - Home Meds: 13:15 Benadryl Oral [Active]; tw2 - PMHx: 13:15 Anemia; SBO; Hypokalemia; Hypertension; colon resection; BREAST CA; barretts tw2 espophagus; 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 - Social history:: Smoking status: . - Ebola Screening: : Patient negative for fever greater than or equal to 101.5 degrees Fahrenheit, and additional compatible Ebola Virus Disease symptoms. ROS: 13:38 Constitutional: Negative for fever, chills, and weight loss, Eyes: Negative for injury, snw pain, redness, and discharge, ENT: Negative for injury, pain, and discharge, Neck: Negative for injury, pain, and swelling, Cardiovascular: Negative for chest pain, palpitations, and edema, Respiratory: Negative for shortness of breath, cough, wheezing, and pleuritic chest pain, Abdomen/GI: Negative for abdominal pain, nausea, vomiting, diarrhea, and constipation, Back: Negative for injury and pain, : Negative for injury, bleeding, discharge, and swelling, MS/Extremity: Negative for injury and deformity, Skin: Negative for injury, rash, and discoloration, Neuro: Negative for headache, weakness, numbness, tingling, and seizure, Psych: Negative for depression, anxiety, suicide ideation, homicidal ideation, and hallucinations. Exam: 13:38 Constitutional: This is a well developed, well nourished patient who is awake, alert, snw and in no acute distress. Head/Face: Normocephalic, atraumatic. Eyes: Pupils equal round and reactive to light, extra-ocular motions intact. Lids and lashes normal. Conjunctiva and sclera are non-icteric and not injected. Cornea within normal limits. Periorbital areas with no swelling, redness, or edema. ENT: Nares patent. No nasal discharge, no septal abnormalities noted. Tympanic membranes are normal and external auditory canals are clear. Oropharynx with no redness, swelling, or masses, exudates, or evidence of obstruction, uvula midline. Mucous membranes moist. Neck: Trachea midline, no thyromegaly or masses palpated, and no cervical lymphadenopathy. Supple, full range of motion without nuchal rigidity, or vertebral point tenderness. No Meningismus. Chest/axilla: Normal chest wall appearance and motion. Nontender with no deformity. No lesions are appreciated. Cardiovascular: Regular rate and rhythm with a normal S1 and S2. No gallops, murmurs, or rubs. Normal PMI, no JVD. No pulse deficits. Respiratory: Lungs have equal breath sounds bilaterally, clear to auscultation and percussion. No rales, rhonchi or wheezes noted. No increased work of breathing, no retractions or nasal flaring. Abdomen/GI: Soft, non-tender, with normal bowel sounds. No distension or tympany. No guarding or rebound. No evidence of tenderness throughout. Back: No spinal tenderness. No costovertebral tenderness. Full range of motion. Skin: Warm, dry with normal turgor. Normal color with no rashes, no lesions, and no evidence of cellulitis. MS/ Extremity: Pulses equal, no cyanosis. Neurovascular intact. Full, normal range of motion. Neuro: Awake and alert, GCS 15, oriented to person, place, time, and situation. Cranial nerves II-XII grossly intact. Motor strength 5/5 in all extremities. Sensory grossly intact. Cerebellar exam normal. Normal gait. Vital Signs: 13:14 BP 103 / 70; Pulse 59; Resp 18; Temp 98.9(TE); Pulse Ox 97% on R/A; Pain 0/10; tw2 MDM: 13:20 Patient medically screened. snw 14:04 Data reviewed: vital signs, nurses notes. Data interpreted: Pulse oximetry: on room air snw is 97 %. Interpretation: normal. Counseling: I had a detailed discussion with the patient and/or guardian regarding: the historical points, exam findings, and any diagnostic results supporting the discharge/admit diagnosis, radiology results, to return to the emergency department if symptoms worsen or persist or if there are any questions or concerns that arise at home. Special discussion: I discussed in detail with the patient the higher chance of wound infection based on his presenting history. Based on the history and exam findings, there is no indication for further emergent testing or inpatient evaluation. I discussed with the patient/guardian the need to see the primary care provider for further evaluation of the symptoms. 04/26 13:34 Order name: Chest Single View XRAY snw Administered Medications: No medications were administered Disposition: 04/26/19 14:03 Discharged to Home. Impression: Person with feared health complaint in whom no diagnosis is made. - Condition is Stable. - Discharge Instructions: PICC Home Guide. - Medication Reconciliation Form, Thank You Letter, Antibiotic Education, Prescription Opioid Use form. - Follow up: Private Physician; When: 1 - 2 days; Reason: Recheck today's complaints, Continuance of care, Re-evaluation by your physician. Follow up: Emergency Department; When: As needed; Reason: Fever > 102 F, Trouble breathing. Addendum: 04/28/2019 15:34 Co-signature as Attending Physician, Carlos Melo MD. g s Signatures: Dispatcher [employer] EDMS Heike Giron, MACHINE STAMPER-C MACHINE STAMPER-Csnw Dahiana Zuniga RN RN tw2 Carlos Melo MD MD Corrections: (The following items were deleted from the chart) 04/26 14:11 14:03 04/26/2019 14:03 Discharged to Home. Impression: Person with feared health tw2 complaint in whom no diagnosis is made. Condition is Stable. Forms are Medication Reconciliation Form, Thank You Letter, Antibiotic Education, Prescription Opioid Use. Follow up: Private Physician; When: 1 - 2 days; Reason: Recheck today's complaints, Continuance of care, Re-evaluation by your physician. Follow up: Emergency Department; When: As needed; Reason: Fever > 102 F, Trouble breathing. snw
--- NOTE | 2019-04-26 14:04 | ER ---
Nurse's Notes [facility] Name: Carine Sheikh Age: 64 yrs Sex: Female : 1955 Arrival Date: 04/26/2019 Time: 13:04 Bed 12 Private MD: Diagnosis: Person with feared health complaint in whom no diagnosis is made Presentation: 04/26 13:13 Presenting complaint: Patient states: i think my took the end off my picc line tw2 on my right arm and its a small amount of bleeding, denies pain. Transition of care: patient was not received from another setting of care. Onset of symptoms was April 26, 2019. Risk Assessment: Do you want to hurt yourself or someone else? Patient reports no desire to harm self or others. Initial Sepsis Screen: Does the patient meet any 2 criteria? No. Patient's initial sepsis screen is negative. Does the patient have a suspected source of infection? No. Patient's initial sepsis screen is negative. Note minimal amount of blood noted on gauze covering end of picc line. Care prior to arrival: None. 13:13 Method Of Arrival: Ambulatory tw2 13:13 Acuity: AZEEM 3 tw2 Triage Assessment: 13:14 General: Appears in no apparent distress. Behavior is calm, cooperative, appropriate tw2 for age. Pain: Denies pain. Historical: - Allergies: 13:15 ACETAMINOPHEN; tw2 13:15 butorphanol tartrate; tw2 13:15 Ciprofloxacin; tw2 13:15 Codeine; tw2 13:15 Droperidol; tw2 13:15 GUAIFENESIN; tw2 13:15 hydrocodone bitartrate; tw2 13:15 Iodine and Iodide Containing Products; tw2 13:15 meperidine HCl; tw2 13:15 Morphine; tw2 13:15 PENICILLINS; tw2 13:15 prochlorperazine Edisylate; tw2 13:15 Prochlorperazine Maleate; tw2 13:15 PROPOXYPHENE; tw2 13:15 QUINOLONES; tw2 13:15 Sulfa (Sulfonamide Antibiotics); tw2 - Home Meds: 13:15 Benadryl Oral [Active]; tw2 - PMHx: 13:15 Anemia; SBO; Hypokalemia; Hypertension; colon resection; BREAST CA; barretts tw2 espophagus; 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 - Social history:: Smoking status: . - Ebola Screening: : Patient negative for fever greater than or equal to 101.5 degrees Fahrenheit, and additional compatible Ebola Virus Disease symptoms. Screenin:11 Abuse screen: Denies threats or abuse. Nutritional screening: No deficits noted. tw2 Tuberculosis screening: No symptoms or risk factors identified. Fall Risk None identified. Assessment: 14:11 Reassessment: Patient appears in no apparent distress at this time. No changes from tw2 previously documented assessment. Patient and/or family updated on plan of care and expected duration. Pain level reassessed. Patient is alert, oriented x 3, equal unlabored respirations, skin warm/dry/pink. Patient denies pain at this time. Vital Signs: 13:14 BP 103 / 70; Pulse 59; Resp 18; Temp 98.9(TE); Pulse Ox 97% on R/A; Pain 0/10; tw2 ED Course: 13:04 Patient arrived in ED. as 13:14 Triage completed. tw2 13:14 Arm band placed on. tw2 13:16 Bed in low position. Call light in reach. Adult w/ patient. tw2 13:20 Heike Giron FNP-C [facility]. snw 13:20 Carlos Melo MD is Attending Physician. snw 13:48 Chest Single View XRAY In Process Unspecified. EDMS 14:11 Dahiana Zuniga, RN is Primary Nurse. tw2 14:11 No provider procedures requiring assistance completed. Patient did not have IV access tw2 during this emergency room visit. pts PICC line to right upper arm remains in place at this time. Administered Medications: No medications were administered Outcome: 14:03 Discharge ordered by . snw 14:11 Patient left the ED. tw2 14:11 Discharged to home ambulatory, with significant other. tw2 14:11 Condition: stable 14:11 Discharge instructions given to patient, significant other, Instructed on discharge instructions, follow up and referral plans. Demonstrated understanding of instructions, follow-up care. Signatures: Dispatcher [employer] EDMS Mack, Heike, AIR TUBE RELEASER-C AIR TUBE RELEASER-Csnw Hilda Booth Tara, RN RN tw2
[2019-04-26 14:16] VITALS: BP 103/70; TEMP 98.9; O2SAT 97
--- NOTE | 2019-04-26 15:11 | RAD REPORT ---
EXAM DESCRIPTION: Michael Single View04/26/2019 1:47 pm CLINICAL HISTORY: Chest pain COMPARISON: March 2019 FINDINGS: The lungs appear clear of acute infiltrate. The heart is normal size A PICC line has its tip in the distal superior vena cava
== END 2019-04-26 14:11 | disposition home or self-care (01) ==
LOC: ER 13:03
DX: Z71.1 Person with feared health complaint in whom no diagnosis is made (principal); I10 Essential (primary) hypertension; Z85.3 Personal history of malignant neoplasm of breast; Z88.0 Allergy status to penicillin; Z88.2 Allergy status to sulfonamides; Z88.5 Allergy status to narcotic agent; Z88.8 Allergy status to other drugs, medicaments and biological substances; Z90.13 Acquired absence of bilateral breasts and nipples
CPT/HCPCS: 71045; 99283

== ENCOUNTER 2019-08-28 07:28 | Day surgery (SDC) | payer OTHER ==
--- OUTSIDE RECORDS SUMMARY | 2019-08-28 07:31 | XMS REPORT ---
:1955 Author Organization eClinicalWorks Care Team Providers Name Role Phone Shanta Mackay Provider Role Unavailable Allergies No Known [...] Medications Medication Code Code Instructions Start End Date Status Dosage System Date Benadryl [facility] 87453307678 25 MG Orally March 30, Active 2 tablet Allergy every 12 hrs 2018 as needed Results No Known Results Summary Purpose eClinicalWorks Submission
--- OUTSIDE RECORDS SUMMARY | 2019-08-28 07:31 | XMS REPORT ---
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 [...] Start End Status Dosage System Date Date Bismuth [facility] [address]-29 525 MG/15ML Active 30 ml as Subsalicylate Orally Four needed times a day ProAir HFA [facility] 39412621911 108 (90 Base) Active 2 puffs as MCG/ACT needed Inhalation every 6 hrs Lisinopril [facility] 17871843074 10 MG Orally Active 1 tablet Once a day BusPIRone HCl [facility] 95743059343 10 MG Orally Active 1 tablet Three times a day Propranolol HCl [facility] 94642169118 80 MG Orally Active 1 tablet Once a day Dexilant [facility] 51800180358 60 MG Orally Active 1 capsule Once a day Meclizine HCl [facility] 80202822947 25 MG Orally Active 1 tablet Once a day as needed Levothyroxine [facility] 26120462622 100 MCG Orally Active 1 tablet Sodium Once a day on an empty stomach in the morning Clindamycin HCl [facility] 07144527757 300mg p.o. q 8 Active one hrs Phenergan [facility] [address]-22 25 MG Orally Active 1 tablet every 6 hrs as needed K-Tab [facility] 36709077912 10 MEQ Orally Active 2 tablets Twice a day with food Benadryl Allergy [facility] 53827373164 25 MG Orally March 30, Active 2 tablet every 12 hrs 2019 as needed Curity Plain [facility] 20833301364 - Pack 09/10March 05, Active as Packing Strip daily 2019 directed Aciphex [facility] 65418258709 20 MG Orally Active 1 tablet Once a day Lasix [facility] 93907234781 20 MG Orally Active 1 tablet Twice a day Valium [facility] 78297016581 10 MG Orally Active 1 tablet Twice a day PRN as needed anxiety bid Results No Known Results Summary Purpose eClinicalWorks Submission
--- OUTSIDE RECORDS SUMMARY | 2019-08-28 07:31 | XMS REPORT ---
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
--- OUTSIDE RECORDS SUMMARY | 2019-08-28 07:31 | XMS REPORT ---
:1955 Author Organization [facility] Address [address] [place] [address] Care Team Providers Name Role Phone Unavailable Unavailable Unavailable Payers Payer Name Policy Type Policy Number Effective Date Expiration Date Problems This patient has no known problems. Allergies, Adverse Reactions, Alerts Allergy Name Allergy Status Severity Reaction(s) Onset Inactive Treating Comments Type Date Date Clinician Penicillins DA Active U 2019-0 8-30 00:00: 00 iodine DA Active U 2019-0 8-30 00:00: 00 Sulfa DA Active U (Sulfonamide 8-30 Antibiotics) 00:00: 00 prochlorperazin DA Active U 2018-0 e 8-30 00:00: 00 droperidol DA Active U 2019-0 8-30 00:00: 00 soap DA Active U 2019-0 8-30 00:00: 00 [place] [address] 8-30 00:00: 00 meperidine DA Active U 2019-0 8-30 00:00: 00 Medications This patient has no known medications. Encounters Start End Encounter Admission Attending Care Care Encounter Date/Time Date/Time Type Type Clinicians Facility Department ID 2019-02-06 2019-02-06 Outpatient [id number] 05:11:00 05:11:00 Results Test Description Test Time Test Comments Text Results Atomic Results Result Comments - ME 2019-07-22 FAX: Alicia Mejia MD [phone] [place]: St: ABSCESS 11:11:00 DEP LOC COMP Name: JUAN F LIU : BODY 1955 Age/S: 64/F [address] [place] [address] Unit #: [id number] Loc: [place] [address] Phys : Alicia Mejia MD Acct : [id number] Dis Date: Status: DEP CLI PHONE #: [phone] Exam Date: 07/21/2019 1333 FAX #: [phone] Reason: L02.91, CUTANEOUS ABSCESS. EXAMS: CPT CODE: [id number] NM ABSCESS LOC COMP BODY 91477 WHOLE BODY INDIUM SCAN: HISTORY: Multiple cutaneous abscesses. COMPARISON EXAMS: Right shoulder x-ray of 04/16/2019. No prior indium scans for comparison. No prior cross-sectional imaging for comparison. TECHNIQUE: Following intravenous injection of 651 uCi 111 indium labeled white blood cells, follow-up anterior and posterior whole-body imaging was performed at 24 hours. In addition, multiple planar views were obtained of the chest, pelvis and legs, including at the level of the cutaneous lesion in the left calf. FINDINGS: The whole-body images show normal distribution of isotope in the liver, spleen and bone marrow. No evidence of pathological focal accumulation of white blood cells. Spot planar images showed no focal, pathological accumulation of white cells, with specific attention given to the lower extremities. IMPRESSION: 1. Negative whole-body indium white blood cell scan. SL:01 at 1111 Reported and signed by: Brayan Jones M.D. CC: Alicia Mejia MD Technologist: Aurelia Marmolejo [facility]; ... Trnscrd Date/Time/By: (1111) : By: Ranulfo/Ranulfo Orig Print D/T: S: 07/22/2019 (3645) PAGE 1 Signed Report - XR 2019-04-16 FAX: Alicia Mejia MD [phone] [place]: St: SHOULDER 11:08:00 REG 1 V RT Name: JUAN F LIU [facility] [place] : 1955 Age/S: 64/F [address] [place] [address] Unit # : [id number] Loc: [place] [address] Phys : Alicia Mejia MD Acct : [id number] Dis Date: Status: REG [facility] PHONE #: [phone] Exam Date: 04/16/2019 1059 FAX #: [phone] Reason: PICC PLACEMENT EXAMS: CPT CODE: [id number] XR SHOULDER 1 V RT 33179 Study: - XR SHOULDER 1 V RT 04/16/2019 10:47 AM Patient Name: JUAN F LIU MR: [id number] : 1955; Age: 64 years y/o Female Ordering Physician: Alicia Mejia MD Clinical Indication: PICC PLACEMENT Comparison: None RIGHT SHOULDER, 1 view: No acute fracture, dislocation, or suspicious focal osseous lesion. Right PICC line tip overlies the superior vena cava. The soft tissues are normal. Impression: Right PICC line tip overlies the superior vena cava. SL: [id number] at 1108 Reported and signed by: Ricco Moe M.D. CC: Alicia Mejia MD Technologist: RT Jero(R) Trnscrd Date/Time/By: 04/16/2019 (1108) : By: [email or web address] Orig Print D/T: S: 04/16/2019 (1111) PAGE 1 Signed Report
[2019-08-28] MEDS ORDERED: Ringers Lactate 1,000 ML IV ONE (07:59)
[2019-08-28] MEDS ORDERED: propofoL 200 MG/20 ML VIAL IV ONE (09:22)
[2019-08-28 11:55] VITALS: BP 119/68; TEMP 98.7; O2SAT 98
== END 2019-08-28 10:14 | disposition home or self-care (01) ==
LOC: OR 07:28
PROVIDERS: ATTEND Surgery
PROC: 0DB78ZX Excision of Stomach, Pylorus, Via Natural or Artificial Opening Endoscopic, Diagnostic (ICD-10-PCS; 2019-08-28)
PROC: 0DB38ZX Excision of Lower Esophagus, Via Natural or Artificial Opening Endoscopic, Diagnostic (ICD-10-PCS; 2019-08-28)
PROC: 0DB98ZX Excision of Duodenum, Via Natural or Artificial Opening Endoscopic, Diagnostic (ICD-10-PCS; principal; 2019-08-28 09:15)
DX: K21.0 Gastro-esophageal reflux disease with esophagitis (principal); K29.50 Unspecified chronic gastritis without bleeding; K25.9 Gastric ulcer, unspecified as acute or chronic, without hemorrhage or perforation; I10 Essential (primary) hypertension; E87.6 Hypokalemia; Z90.49 Acquired absence of other specified parts of digestive tract; Z85.3 Personal history of malignant neoplasm of breast
CPT/HCPCS: 88312; 88305 ×2; 43239; J2704; J7120

== ENCOUNTER 2020-01-23 22:26 | Emergency (ER) | payer OTHER ==
--- OUTSIDE RECORDS SUMMARY | 2020-01-23 22:29 | XMS REPORT | Clinical Summary ---
:1955 Author Organization [facility] Address [address] [place] [address] Care Team Providers Name Role Phone Shanta Mackay REFERENCE LIBRARY ASSISTANT-C Primary Care Provider Allergies Active Allergy Reactions Severity Noted Date Comments Butorphanol Tartrate Rash Low 12/20/2016 Ciprofloxacin Rash Low 12/20/2016 Codeine Rash Low 12/20/2016 Droperidol Rash Low 12/20/2016 Hydrocodone-Acetaminophen Rash Low 12/20/2016 Iodinated Contrast Media Other (See Comments) 06/02/20 19 Iodine And Iodide Containing Rash Low 12/20/2016 Products Latex Rash Low 06/02/2019 Meperidine Hcl Rash Low 12/20/2016 Morphine Rash Low 06/02/2019 Naproxen Rash Low 12/20/2016 Naprosin Penicillins Rash Low 12/20/2016 Piroxicam Rash Low 12/20/2016 Prednisone Rash Low 12/20/2016 Prochlorperazine Edisylate Rash Low 12/20/2016 Promethazine Hcl Rash Low 12/20/2016 Propoxyphene Rash Low 06/02/2019 Propoxyphene N-Acetaminophen Rash Low 12/20/2016 Sulfa (Sulfonamide Antibiotics) Rash Low 7 Medications Medication Sig Dispensed Refills Start End Date Status Date levothyroxine Take 100 mcg by 3 Active (SYNTHROID, mouth daily. 9 LEVOXYL) 100 mcg tablet busPIRone (BUSPAR) Take 5 mg by 3 Active 5 MG tablet mouth. 9 furosemide (LASIX) TAKE 1 TABLET BY 3 Active 20 mg tablet MOUTH TWICE A 9 DAY FOR DIURETIC diazePAM (VALIUM) TAKE 1/2 TO 1 3 Active 10 MG tablet TABLET BY MOUTH 9 EVERY 8-12 HOURS NEEDED FOR SPASMS meclizine TAKE 1 TABLET BY 3 Act anurag (ANTIVERT) 25 mg MOUTH THREE 9 tablet TIMES A DAY NEEDED DIZZINESS propranolol TAKE 1 TABLET BY 3 A ctive (INDERAL) 80 MG MOUTH TWICE A 9 tablet DAY FOR HYPERTENSION BANOPHEN 50 mg TAKE ONE CAPSULE 3 Active capsule BY MOUTH TWICE A 9 DAY NEEDED FOR ALLERGY zolpidem (AMBIEN) Take 10 mg by 3 Active 10 mg tablet mouth nightly as 9 needed. triamcinolone 2 (two) times a 4 Active (KENALOG) 0.1 % day. 9 cream RABEprazole Take 20 mg by 3 Acti ve (ACIPHEX) 20 mg EC mouth daily. 9 tablet promethazine TAKE 1 TABLET BY 5 Active (PHENERGAN) 25 MG MOUTH EVERY 6-8 9 tablet HOURS NEEDED FOR ABDOMINAL PAIN NEEDED FOR NAUSEA & VOMITING potassium chloride 0 A ctive (KLOR-CON SPRINKLE) 7 10 MEQ CR capsule ondansetron Take 4 mg by 1 Activ e (ZOFRAN) 4 MG mouth every 12 9 tablet (twelve) hours as needed. nitroglycerin APPLLY 1 PATCH 3 A ctive (NITRODUR) 0.4 DAILY 9 mg/hr mupirocin APPLY TO 0 Active (BACTROBAN) 2 % AFFECTED AREA 3 9 ointment TIMES A DAY FOR 7 DAYS lisinopril Take 10 mg by 3 Activ e (PRINIVIL,ZESTRIL) mouth daily. 9 10 mg tablet fluticasone SPRAY 1 SPRAY 3 Acti ve propionate INTO EACH 9 (FLONASE) 50 NOSTRIL DAILY mcg/actuation nasal spray dexlansoprazole 0 Acti ve (DEXILANT) 60 mg 7 capsule acetaminophen-codei Take 1 tablet by 0 Active ne (TYLENOL WITH mouth every 4 9 CODEINE #3) 300-30 (four) hours as mg per tablet needed. acetaminophen-codei TAKE 1 TABLET BY 2 Active ne (TYLENOL WITH MOUTH 1 HOUR 9 CODEINE #4) 300-60 BEFORE DRESSING mg per tablet CHANGE DAPTOMYCIN IV Infuse 500 mg 0 Ac tive into a venous catheter daily. fluconazole Take 200 mg by 0 06/04/20 Dis continued (DIFLUCAN) 200 MG mouth daily. 9 19 tablet SANTYL ointment APPLY 1 0 06/04/20 Disc ontinued APPLICATION TO 9 (Stop Taking at AFFECTED AREA Discha rge) ONCE A DAY TO CLEAN WOUND EXTERNALLY 30 DAYS Active Problems No known active problems Encounters Date Type Specialty Care Team Description 01/21/2020 Travel 01/20/2020 Travel 01/18/2020 Transcribe Orders Access Vangie Agudelo Perso nal history of malignant neoplasm of breast (Primary Dx); MD Anastasiya S/P mastectomy, bilateral 06/04/2019 Surgery General Surgery Vangie Agudelo IRRIGAT ION AND MD Anastasiya DEBRIDEMENT OF BILATERAL BREAS TS WITH CLOSURE, MULTIPLE INTERC OSTAL BLOCKS 06/04/2019 Anesthesia Event General Surgery Arnoldo Musa MD 06/04/2019 Hospital Encounter General Surgery Vangie Agudelo P reop testing; MD Anastasiya Cutaneous absce ss, unspecified site; Encounter for b reast reconstruction following mastectomy; Personal histor y of malignant neoplasm of breast; Infection follo wing a procedure, unspecified, initial encounter 06/02/2019 Pre-Admit Testing Pre-Admission Vangie Agudelo p testing Appointment Testing MD Anastasiya (Primary Dx) after 01/22/2019 Family History Medical History Relation Name Comments Hypertension Father Prostatitis Father COPD Mother Heart disease Mother Bladder Cancer Sister Breast cancer Sister Relation Name Status Comments Father Alive Mother Sister Social History Tobacco Use Types Packs/Day Years Used Date Never Smoker Smokeless Tobacco: Never Used Alcohol Use Drinks/Week oz/Week Comments Not Currently Alcohol Habits Answer Date Recorded How often do you have a drink containing alcohol? Never 06/02/2019 How many drinks containing alcohol do you have on a typical Not asked day when you are drinking? How often do you have six or more drinks on one occasion? No t asked Sex Assigned at Date Recorded Not on file Job Start Date Occupation Industry Not on file Not on file Not on file Travel History Travel Start Travel End No recent travel history available. COVID-19 Exposure Response Date Recorded In the last month, have you been in contact with No / Unsure 01/21/2020 10:39 AM CDT someone who was confirmed or suspected to have Coronavirus / COVID-19? Last Filed Vital Signs Vital Sign Reading Time Taken Comments Blood Pressure 158/82 06/04/2019 11:50 AM CDT Pulse 61 06/04/2019 11:50 AM CDT Temperature 36.7 C (98.1 F) 06/04/2019 11:28 AM CDT Respiratory Rate 16 06/04/2019 11:50 AM CDT Oxygen Saturation 96% 06/04/2019 11:50 AM CDT Inhaled Oxygen Concentration - - Weight 68.1 kg (150 lb 1 oz) 06/04/2019 6:59 AM CDT Height 162.6 cm (5' 4") 06/04/2019 6:59 AM CDT Body Mass Index 25.76 06/04/2019 6:59 AM CDT Plan of Treatment Date Type Specialty Care Team Description 01/25/2020 Hospital Encounter Radiology Vangie Agudelo MD [address] [place] [address] Dr [address] [place], [place] [address] 03/16/2020 Hospital Encounter General Surgery Vangie Agudelo MD [address] [place] [address] Dr [address] [place] [address] [phone] 03/16/2020 Surgery General Surgery Vangie Agudelo AL BREAST MD Anastasiya RECONSTRUCTION [address]/ LOC [address]/ [address] [employer], [place], [place] MULTIPLE INTE RCOSTAL [address] BLOCKS [phone] Health Maintenance Due Date Last Done Comments CERVICAL CANCER SCREENING 01/29/1976 BREAST CANCER SCREENING 2005 COLONOSCOPY SCREENING 2005 SHINGLES VACCINES (#1) 2005 INFLUENZA VACCINE 04/09/2020 Procedures Procedure Name Priority Date/Time Associated Diagnosis Comme nts AFB CULTURE Timed 06/04/2019 10:03 Cutaneous abscess, Resul ts for this AM CDT unspecified site procedure are in Encounter for breast the res ults reconstruction section. following mastec aba Personal history of malignant neoplasm of breast Infection following a procedure, unspecified, initial encounter AFB CULTURE Timed 06/04/2019 10:02 Cutaneous abscess, Resul ts for this AM CDT unspecified site procedure are in Encounter for breast the res ults reconstruction section. following mastec aba Personal history of malignant neoplasm of breast Infection following a procedure, unspecified, initial encounter AFB STAIN Timed 06/04/2019 9:03 Results for this AM CDT procedure are i n the results section. GRAM STAIN Timed 06/04/2019 9:03 Results for this AM CDT procedure are i n the results section. TISSUE CULTURE Timed 06/04/2019 9:03 Cutaneous abscess, Res ults for this AM CDT unspecified site procedure are in Encounter for breast the res ults reconstruction section. following mastec aba Personal history of malignant neoplasm of breast Infection following a procedure, unspecified, initial encounter AFB STAIN Timed 06/04/2019 9:02 Results for this AM CDT procedure are i n the results section. GRAM STAIN Timed 06/04/2019 9:02 Results for this AM CDT procedure are i n the results section. TISSUE CULTURE Timed 06/04/2019 9:02 Cutaneous abscess, Res ults for this AM CDT unspecified site procedure are in Encounter for breast the res ults reconstruction section. following mastec aba Personal history of malignant neoplasm of breast Infection following a procedure, unspecified, initial encounter SURGICAL PATHOLOGY Routine 06/04/2019 9:00 Resul ts for this REQUEST AM CDT procedure are i n the results section. W[place] AN ELECTIVE Routine 06/04/2019 8:13 Results f or this ENDOTRACHEAL AIRWAY AM CDT procedur e are in the results section. INCISION AND 06/04/2019 7:58 Cutaneous abscess, DRAINAGE, BREAST, AM CDT unspecified si te WITH WOUND CLOSURE Encounter for breast reconstruction following mastec aba Personal history of malignant neoplasm of breast Infection following a procedure, unspecified, initial encounter ECG 12-LEAD Routine 06/02/2019 9:21 Preop testing Results fo r this AM CDT procedure are i n the results section. after 01/22/2019 Results AFB culture (06/04/2019 10:03 AM CDT)Only the most recent of2 resultswithin the time period is included. AFB culture No growth after 6 weeks of incubation. TOMAS ROBERTS GNOSTICIST isolate Comment: HOSPITAL Specimen Information Specimen Source: Tissue Specimen Site: Breast Specimen Tissue - Breast Performing Organization Address City/[facility]/Zipcode Phone Number [facility] DEPARTMENT OF PATHOLOGY AND [address] [place] [address] [place] [phone] Tissue culture (06/04/2019 9:03 AM CDT)Only the most recent of2 resultswithin the time period is included. Tissue culture Staphylococcus, coagulase negative HOUS TON GNOSTICIST isolate Recovered in Broth only: HOSPITAL susceptibility to follow (A) Comment: Specimen Information Specimen Source: Tissue Specimen Site: Breast Specimen Tissue - Breast Organism Antibiotic Method Susceptibility Staphylococcus coagulase Ampicillin HOWARD mcg/mL : Resistant negative Staphylococcus coagulase Clindamycin HOWARD <=0.5 m cg/mL: Resistant negative Staphylococcus coagulase Erythromycin HOWARD >4 mcg/ mL: Resistant negative Staphylococcus coagulase Linezolid HOWARD <=1 mcg /mL: Susceptible negative Staphylococcus coagulase Minocycline HOWARD <=1 mcg /mL: Susceptible negative Staphylococcus coagulase Oxacillin HOWARD 1 mcg/m L: Resistant negative Staphylococcus coagulase Penicillin G HOWARD 1 mcg/m L: Resistant negative Staphylococcus coagulase Rifampin HOWARD <=0.5 m cg/mL: Susceptible negative Staphylococcus coagulase Tetracycline HOWARD <=0.5 m cg/mL: Susceptible negative Staphylococcus coagulase Vancomycin HOWARD 1 mcg/m L: Susceptible negative Staphylococcus coagulase Ciprofloxacin HOWARD mcg/mL : Resistant negative Staphylococcus coagulase Trimethoprim/Sulfamethoxa HOWARD >2/38 mcg/mL: Resistant negative zole Performing Organization Address [facility] Phone Number [facility] DEPARTMENT OF PATHOLOGY AND [address] [place] [address] [place] [address] Gram stain (06/04/2019 9:03 AM CDT)Only the most recent of2 resultswithin the time period is included. Gram stain isolate No WBC's or organisms seen. UYEN KAUFMAN Comment: HOSPITAL Specimen Information Specimen Source: Tissue Specimen Site: Breast Specimen Tissue - Breast Performing Organization Address City/[facility]/Zipcode Phone Number [facility] DEPARTMENT OF PATHOLOGY AND [address] [place] [address] [phone] [address] AFB stain (06/04/2019 9:03 AM CDT)Only the most recent of2 resultswithin the time period is included. Pathologist Sig nature AFB stain No acid fast bacilli (AFB) seen. [facility] Comment: HOSPITAL Specimen Information Specimen Source: Tissue Specimen Site: Breast Specimen Tissue - Breast Performing Organization Address City/State/Zipcode Phone Number [facility] DEPARTMENT OF PATHOLOGY AND [address] [place], [place] [address] GENOMIC MEDICINE [facility] [address] [place] [address] Surgical pathology request (06/04/2019 9:00 AM CDT) [facility] DEPARTMENT OF PATHOLOGY AND GENOMIC MEDICINE Surgical pathology See link below [facility] DEPARTMENT OF report for PDF Lab PATHOLOGY AND Report GENOMIC MEDICINE Result status This is Final [facility] DEPARTMENT OF Report for PATHOLOGY AND [id number] GENOMIC MEDICINE Specimen Performing Organization Address City/State/Zipcode Phone Number [facility] DEPARTMENT OF PATHOLOGY AND [address] [place] [address] GENOMIC MEDICINE Airway (06/04/2019 8:13 AM CDT) Narrative Performed At Arnoldo Musa MD 2018 8:14 AM Airway Performed by: Arnoldo Musa MD Authorized by: Arnoldo Musa MD Location: OR Urgency: Elective Anesthesiologist: Arnoldo Musa MD Performed by: anesthesiologist Preoxygenated with 100% O2: Yes C-spine Precautions Maintained Throughou t: Yes Mask Ventilation: Not attempted Final Airway Type: Endotracheal airway Final Endotracheal Airway: ETT Cuffed: Yes Technique Used: Direct laryngoscopy Devices/Methods Used in Placement: Int ubating stylet Insertion Site: Oral Blade Type: Valdez Laryngoscope Blade/Videolaryngoscope Daljit de Size: 2 ETT Size (mm): 7.0 Cuff at minimum occlusion pressure: Yes Measured from: Lips ETT to Lips (cm): 22 Placement Verified by: CO2 detection, di rect visualization and equal breath sounds Laryngoscopic view: Grade I - full vie w of glottis Rapid Sequence Induction (RSI): No Modified RSI: Yes Number of Attempts at Approach: 1 ECG 12 lead (06/02/2019 9:21 AM CDT) Pathologist Sig nature Ventricular rate 57 [facility] Atrial rate 57 [facility] WY interval 168 [facility] QRSD interval 82 [facility] QT interval 460 [facility] QTC interval 447 [facility] P axis 1 58 [facility] QRS axis 1 -32 [facility] T wave axis 23 [facility] EKG impression Sinus bradycardia-Left H MUSE axis deviation-Abnormal ECG-No previous ECGs available-Electronicall y Signed By Joy Hamilton MD ([id number]) on 06/02/2019 10:30:25 AM Specimen Narrative Performed At This result has an attachment that is no t available. Performing Organization Address City/State/Zipcode Phone Number [facility] MUSE [address] [place] [address] after 01/22/2019 Insurance Payer Benefit Plan / Subscriber ID Effective Dates Phone Addre ss Type Group MEDICARE MEDICARE PART A xxxxxxxxxxx 2003-Present [place], [place] Medicare AND B Advance Directives For more information, please contact: [phone] Type Date Recorded Patient Senior Technologist Explanati on Advance Directives, Living Will 06/03/2019 4:01 PM and Medical Power of Tray Filler
--- OUTSIDE RECORDS SUMMARY | 2020-01-23 22:30 | XMS REPORT ---
:1955 Author Organization [facility] t Address [address] [place] [address] Care Team Providers Name Role Phone Payton Wilkins Primary Care Physician Anastasiya Agudelo MD Attending Clinician Negro Musa MD Attending Clinician Payers Payer Name Policy Policy Number Effective Expiration Source Type Date Date MEDICAREMEDICARE PART xxxxxxxxxxx 2003 Mike Monson AND 00:00:00 Muslim Bxxxxxxxxxxx/09/2002[place] Condition Condition Condition Status Onset Resolution Last Treating Co mments Source Name Details Category Date Date Treatment Clinician Date Fullness Fullness Problem [facility] Vasculitis Vasculitis Problem Active [facility] History of History of Problem Active [facility] thyroid thyroid [facility] - cancer cancer Memoria l Outpati ent Clinics Depression Depression Problem Active [facility] , , [facility] - unspecifie unspecifie Me moria d d l depression depression Ou tpati type type ent Clinics History of History of Diagnosis Active [facility] - esophagus esophagus Rashad amanda l [facility] Wound Wound Problem Active [facility] check, check, [facility] - abscess abscess Memoria l Outpati ent Clinics Mesenteric Mesenteric Problem Active C [facility] ischemia ischemia [facility] Median Median Problem Active [facility] 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 Memori a syndrome syndrome l [facility] ent Clinics Diarrhea, Diarrhea, Problem Active [facility] unspecifie unspecifie Annamaria kes - d type d type [facility] ent Clinics Irritable Irritable Problem Active [facility] bowel bowel [facility] - syndrome syndrome Memori a with with l constipati constipati Ou tpati on on ent Clinics Anxiety Anxiety Problem Active [facility] about about [facility] GERD GERD Problem Active [facility] without without Lukes - esophagiti esophagiti Me moria s s l [facility] ent Clinics History of History of Problem Active C [facility] stroke stroke [facility] Benign Benign Diagnosis Active [facility] hypertensi hypertensi Annamaria kes - on on [facility] ent Clinics Generalize Generalize Problem Active C HI [facility] d d [facility]ukes - abdominal abdominal Rashad amanda pain pain l [facility] ent Clinics Lymphadeno Lymphadeno Problem Active C [facility] ent Clinics History of History of Problem Active C HI [facility] breast breast [facility] - cancer cancer [facility] ent Clinics Dumping Dumping Diagnosis Active [facility] syndrome syndrome [facility] - [facility] ent Clinics MRSA MRSA Problem Active [facility] (methicill (methicill Annamaria kes - in in [facility] resistant resistant l staph staph [facility] aureus) aureus) ent culture culture Clinics positive positive Allergies, Adverse Reactions, Alerts Allergy Allergy Status Severity Reaction(s) Onset Inactive Treating Comm ents Source Name Type Date Date Clinician Iodinate Propensi Active Other (See Mike preston ty to Comments) 06-02 Methodi Contrast adverse 00:00: st Media reaction 00 s to drug Latex Propensi Active Rash Maycol ty to 06-02 Methodi adverse 00:00: st reaction 00 s to drug Morphine Propensi Active Rash Emmanuelto smooth ty to 06-02 Methodi adverse 00:00: st reaction 00 s to drug Propoxyp Propensi Active Rash Emmanuelto n jesus ty to 06-02 Methodi adverse 00:00: st reaction 00 s to drug Penicill DA Active U [facility] ins 8-30 Clear 00:[facility]: [facility] iodine DA Active U [facility] 8-30 Clear 00:00: [facility] Sulfa DA Active U 2019 [facility] (Sulfona 8-30 Clear mide 00:00: [facility] Antibiot 00 [facility] prochlor DA Active U [facility] perazine 8-30 Clear 00:00: [facility] droperid DA Active U 2018- [facility] ol 8-30 Clear 00:00: [facility] soap DA Active U 2019- [facility] 8-30 Clear 00:00: [facility] povidone DA Active U [facility] -iodine 8-30 Clear 00:00: [facility] meperidi DA Active U [facility] ne 8-30 Clear 00:00: [facility] Butorpha Propensi Active Rash [place] nol ty to 4- Methodi Tartrate adverse 00:00: st reaction 00 s to drug Ciproflo Propensi Active Rash [place] xacin ty to 4 Methodi adverse 00:00: st reaction 00 s to drug Codeine Propensi Active Rash [place] ty to 4-13 Methodi adverse 00:00: st reaction 00 s to drug Droperid Propensi Active Rash [place] ol ty to 4- Methodi adverse 00:00: st reaction 00 s to drug Hydrocod Propensi Active Rash [place] one-Acet ty to 4-13 Methodi aminophe adverse 00:00: st n reaction 00 s to drug Iodine Propensi Active Rash [place] And ty to 4-13 Methodi Iodide adverse 00:00: st Containi reaction 00 ng s to Products drug Meperidi Propensi Active Rash [place] ne Hcl ty to 4-13 Methodi adverse 00:00: st reaction 00 s to drug Naproxen Propensi Active Rash Naprosin [place] ty to 4-13 Methodi adverse 00:00: st reaction 00 s to drug Penicill Propensi Active Rash [place] ins ty to 4-13 Methodi adverse 00:00: st reaction 00 s to drug Piroxica Propensi Active Rash [place] m ty to 4-13 Methodi adverse 00:00: st reaction 00 s to drug Predniso Propensi Active Rash [place] ne ty to 12-20 Methodi adverse 00:00: st reaction 00 s to drug Prochlor Propensi Active Rash [place] perazine ty to 12-20 Methodi Edisylat adverse 00:00: st e reaction 00 s to drug Prometha Propensi Active Rash [place] zine Hcl ty to 12-20 Methodi adverse 00:00: st reaction 00 s to drug Propoxyp Propensi Active Rash [place] hene ty to 12-20 Methodi N-Acetam adverse 00:00: st inophen reaction 00 s to drug Sulfa Propensi Active Rash Severino (Sulfona ty to 12-20 Methodi mide adverse 00:00: st Antibiot reaction 00 ics) s to drug Sulfacet Adverse Active Info Not [facility] amide Reaction Available [facility] Sodium [facility] Quinidin Adverse Active Info Not [facility] t e Reaction Available [facility] - Sulfate [facility] Propoxyp Adverse Active Info Not [facility] t hene HCl Reaction Available [facility][note 2] Meperidi Adverse Active Info Not [facility] t ne HCl Reaction Available [facility] Iodine Adverse Active Info Not [facility] Reaction Available [facility] Guaifene Adverse Active Info Not [facility] sin Reaction Available [facility] Droperid Adverse Active Info Not [facility] ol Reaction Available [facility] PCN Adverse Active Info Not [facility] Reaction Available [facility] MORPHINE Adverse Active Info Not [facility] t Reaction Available [facility] Butorpha Adverse Active Info Not [facility] t nol Reaction Available [facility] - Tartrate [facility] Analgesi Adverse Active Info Not [facility] t c Reaction Available [facility] IVP dye Adverse Active Info Not [facility] Reaction Available [facility] Ciproflo Adverse Active Info Not [facility] t xacin Reaction Available [facility] Family History Family Member Diagnosis Comments Start Date Stop Date Source Natural father Hypertension [place] Muslim Natural father Prostatitis [place] M ethodist Natural mother COPD [facility] thodist Natural mother Heart disease [place] Muslim Natural sister Bladder Cancer [place] Muslim Natural sister Breast cancer [place] Muslim Social History Social Habit Start Date Stop Date Quantity Comments Source History [facility] Meth odist Alcohol Std Drinks History [facility] Meth odist Alcohol Binge Sex Assigned At [place] M ethodist Exposure to Not sure [place] Metho dist SARS-CoV-2 (event) Alcohol intake 2019-06-04 2019-06-04 Ex-drinker [facility] thodist 00:00:00 00:00:00 (finding) History [facility] 2019-06-02 2019-06-02 1 [place] Meth odist Alcohol Frequency 00:00:00 00:00:00 Smoking Status Start Date Stop Date Source Never smoker [place] Methodis t Medications Ordered Filled Start Stop Current Ordering Indication Dosage Frequency Signature Comments Components Source Medication Medication Date Date Medication? Clinician (SIG) Name Name DAPTOMYCIN Yes 500mg QD Infuse 500 Severino IV 9-26 mg into a Methodi 18:06: venous st 31 catheter daily. zolpidem Yes 10mg QD Take 10 mg Carmela ston (AMBIEN) 10 9-11 by mouth Meth shayne mg tablet 00:00: nightly as st 00 needed. ondansetron Yes 4mg Q12H Take 4 mg [place] (ZOFRAN) 4 9-10 by mouth Metho di MG tablet 00:00: every 12 st 00 (twelve) hours as needed. levothyroxi Yes 100ug QD Take 100 [place] ne 9- mcg by Methodi (SYNTHROID, 00:00: mouth st LEVOXYL) 00 daily. 100 mcg tablet BANOPHEN 50 Yes TAKE ONE [place] mg capsule 05-10 CAPSULE BY Met hodi 00:00: MOUTH st 00 TWICE A DAY NEEDED FOR ALLERGY RABEprazole Yes 20mg QD Take 20 mg Severino (ACIPHEX) 05-10 by mouth Method i 20 mg EC 00:00: daily. st tablet 00 propranolol Yes TAKE 1 [place] (INDERAL) 8-11 TABLET BY Metho di 80 MG 00:00: MOUTH st tablet 00 TWICE A DAY FOR HYPERTENSI ON acetaminoph Yes TAKE 1 [place] en-codeine 8-10 TABLET BY Meth shayne (TYLENOL 00:00: MOUTH 1 st WITH 00 HOUR CODEINE #4) BEFORE 300-60 mg DRESSING per tablet CHANGE fluconazole 2018-0 2019- No 200mg QD Take 200 Severino (DIFLUCAN) 8-08 09-26 mg by Methodi 200 MG 00:00: 00:[address] tablet 00 :00 daily. nitroglycer Yes APPLLY 1 [place] in 04-03 PATCH Methodi (NITRODUR) 00:00: DAILY st 0.4 mg/hr 00 furosemide Yes TAKE 1 [place] (LASIX) 20 7-24 TABLET BY Meth shayne mg tablet 00:00: MOUTH st 00 TWICE A DAY FOR DIURETIC meclizine Yes TAKE 1 [place] (ANTIVERT) - TABLET BY Meth shayne 25 mg 00:00: MOUTH st tablet 00 THREE TIMES A DAY NEEDED DIZZINESS Benadryl Benadryl Yes Shanta [address] Allergy Allergy 03-30 Clay as needed Alanis es - 00:00: Memoria 00 l Outpati ent Clinics lisinopril 2018- Yes 10mg QD Take 10 mg [place] (PRINIVIL,Z 7-18 by mouth Meth shayne ESTRIL) 10 00:00: daily. st mg tablet 00 busPIRone Yes 5mg Take 5 mg Carmela ston (BUSPAR) 5 7-08 by mouth. Meth shayne MG tablet 00:00: st 00 triamcinolo Yes Q.5D 2 (two) Carmela ston ne 7-08 times a Methodi (KENALOG) 00:00: day. st 0.1 % cream 00 fluticasone Yes SPRAY 1 Carmela ston propionate 7-06 SPRAY INTO Met hodi (FLONASE) 00:00: EACH st 50 00 NOSTRIL mcg/actuati DAILY on nasal spray diazePAM Yes TAKE 1/2 [place] (VALIUM) 10 7-03 TO 1 Methodi MG tablet 00:00: TABLET BY st 00 MOUTH EVERY 8-12 HOURS NEEDED FOR SPASMS promethazin Yes TAKE 1 [place] e 7-02 TABLET BY Methodi (PHENERGAN) 00:00: MOUTH st 25 MG 00 EVERY 6-8 tablet HOURS NEEDED FOR ABDOMINAL PAIN NEEDED FOR NAUSEA & VOMITING acetaminoph Yes 1{tbl} Q4H Take 1 [place] en-codeine 7-02 tablet by Meth shayne (TYLENOL 00:00: mouth st WITH 00 every 4 CODEINE #3) (four) 300-30 mg hours as per tablet needed. mupirocin Yes APPLY TO [facility] imtiaz (BACTROBAN) 03-03 AFFECTED Meth shayne 2 % 00:00: AREA 3 st ointment 00 TIMES A DAY FOR 7 DAYS SANTYL 2019- No APPLY 1 [place] ointment 03-03 APPLICATIO Meth shayne 00:00: 00:[address] 00 :00 AFFECTED AREA ONCE A DAY TO CLEAN WOUND EXTERNALLY 30 DAYS dexlansopra Yes [place] n zole 4-03 Methodi (DEXILANT) 00:00: st 60 mg 00 capsule potassium Yes [place] chloride 3-16 Methodi (KLOR-CON 00:00: st SPRINKLE) 00 10 MEQ CR capsule Lasix Lasix Yes Shanta [address] [place] [facility] Propranolol Propranolol Yes Shanta [address] HCl HCl [place] [facility] BusPIRone BusPIRone Yes Shanta [address] HCl HCl [place] [facility] Levothyroxi Levothyroxi Yes Shanta [address] ne Sodium ne Sodium Clay on an Alanis es - empty Memoria stomach in l the [facility] ent Clinics Lisinopril Lisinopril Yes Shanta [address] [facility] [place] [facility] Valium Valium Yes Shanta [address] [place] as needed [facility] - bid Memoria l [facility] Dexilant Dexilant Yes Shanta [address] [place] [facility] K-Tab K-Tab Yes Shanta [address] [place] with food [facility] - [facility] Meclizine Meclizine Yes Shanta [address] HCl HCl [place] as needed [facility] Phenergan Phenergan Yes Shanta [address] [place] as needed [facility] Vital Signs Vital Name Observation Time Observation Value Comments Source Systolic blood 2019-06-04 16:50:00 158 mm[Hg] Emmanuelto n Muslim pressure Diastolic blood 2019-06-04 16:50:00 82 mm[Hg] Pedro on Muslim pressure Heart rate 2019-06-04 16:50:00 61 /min Maycol Lin Respiratory rate 2019-06-04 16:50:00 16 /min Emmanuel kitchen Muslim Oxygen saturation in 2019-06-04 16:50:00 96 /min Maycol Lin Arterial blood by Pulse oximetry Body temperature 2019-06-04 16:28:00 36.72 Aurelia Emmanuel kitchen Muslim Body height 2019-06-04 11:59:00 162.6 cm Maycol Lin Body weight 2019-06-04 11:59:00 68.068 kg Maycol Lin BMI 2019-06-04 11:59:00 25.76 kg/m2 Maycol Lin Procedures Procedure Date / Time Performed Performing Clinician Sourc e AFB CULTURE 2019-06-04 15:03:00 Vangie Agudelo Me thodist Anastasiya AFB CULTURE 2019-06-04 15:02:00 Vangie Agudelo Me thodist Anastasiya TISSUE CULTURE 2019-06-04 14:03:00 Vangie Agudelo Me thodist Anastasiya GRAM STAIN 2019-06-04 14:03:00 Vangie Agudelo Me thodist Anastasiya AFB STAIN 2019-06-04 14:03:00 Vangie Agudelo Me thodist Anastasiya TISSUE CULTURE 2019-06-04 14:02:00 Vangie Agudelo Me thodist Anastasiya GRAM STAIN 2019-06-04 14:02:00 Vangie Agudelo Me thodist Anastasiya AFB STAIN 2019-06-04 14:02:00 Vangie Agudelo Me thodist Anastasiya SURGICAL PATHOLOGY 2019-06-04 14:00:00 Vangie Agudelo REQUEST Anastasiya TN AN ELECTIVE 2019-06-04 13:13:34 Arnoldo Musa Meth odist ENDOTRACHEAL AIRWAY Christopher INCISION AND DRAINAGE, 2019-06-04 12:58:00 Wegge, Vangie Carmela ston Muslim BREAST, WITH WOUND Anastasiya CLOSURE ECG 12-LEAD 2019-06-02 14:21:08 Vangie Agudelo Ca kaye Langford Plan of Care Planned Activity Planned Date Details Comments Source Future Scheduled Test 2020-04-09 INFLUENZA VACCINE [place] Muslim 00:00:00 [code = INFLUENZA VACCINE] Future Scheduled Test 2005 BREAST CANCER [place] Muslim 00:00:00 SCREENING [code = BREAST CANCER SCREENING] Future Scheduled Test 2005 COLONOSCOPY [place] Muslim 00:00:00 SCREENING [code = COLONOSCOPY SCREENING] Future Scheduled Test 2005 SHINGLES VACCINES [place] Muslim 00:00:00 (#1) [code = SHINGLES VACCINES (#1)] Future Scheduled Test 1976-01-29 Screening for [place] Muslim 00:00:00 malignant neoplasm of cervix (procedure) [code = 137827990] Future Appointment 2020-03-16 Vangie Agudelo MD, Ishan Lin 12:30:[address] [place] [address] Dr; [address], [place] [address] Future Appointment 2020-01-25 Vangie Agudelo MD, Ishan Lin 10:30:[address] [place] [address] Dr; [address], [place] [id number] Future Appointment 2020-03-16 Vangie Agudelo MD, Ishan Lin 12:30:[address] [place] [address] Dr; [address], [place] [id number] Encounters Start End Encounter Admission Attending Care Care Encounter Source Date/Time Date/Time Type Type Clinicians Facility Department ID 2019-12-28 2019-12-28 [facility] [id number] [facility] 13:00:00 13:00:00 [facility] Medicine Outpati ent Clinics 2019-09-28 2019-09-28 [facility] [id number] 16:00:00 16:00:00 [facility] Medicine l Medicine Outpati ent Clinics 2019-08-14 2019-08-14 [facility] [id number] 13:22:00 13:22:00 [facility] Medicine l Medicine Outpati ent Clinics 2019-07-30 2019-07-30 [facility] [id number] 08:57:00 08:57:00 t [facility] Outpati ent Clinics 2019-06-25 2019-06-25 [facility] [id number] 08:40:00 08:40:00 t [facility] Outpati ent Clinics 2019-05-14 2019-05-14 [facility] [id number] 09:07:00 09:07:00 t Specialty/U Annamaria kes - Specialty rology Memori a /Urology Clinic l Clinic Outpati ent Clinics 2019-05-12 2019-05-12 [facility] [id number] 08:10:00 08:10:00 t Specialty/U Annamaria kes - Specialty rology Memori a /Urology Clinic l Clinic Outpati ent Clinics 2019-05-12 2019-05-12 [facility] [id number] 08:06:00 08:06:00 t Specialty/U Annamaria kes - Specialty rology Memori a /Urology Clinic l Clinic Outpati ent Clinics 2019-04-20 2019-04-20 [facility] [id number] 10:21:00 10:21:00 t Specialty/U Annamaria kes - Specialty rology Memori a /Urology Clinic l Clinic Outpati ent Clinics 2019-04-13 2019-04-13 [facility] [id number] 09:49:00 09:49:00 t Specialty/U Annamaria kes - Specialty rology Memori a /Urology Clinic l Clinic Outpati ent Clinics 2019-04-07 2019-04-07 [facility] [id number] 10:00:00 10:00:00 t Specialty/U Annamaria kes - Specialty rology Memori a /Urology Clinic l Clinic Outpati ent Clinics 2019-04-01 2019-04-01 [facility] [id number] 17:17:00 17:17:00 t [facility] Outpati ent Clinics 2019-03-30 2019-03-30 Outpatient Topher Mustafa [id number] 14:00:00 14:00:00 t [facility] 2019-03-30 2019-03-30 Outpatient Topher Mustafa [id number] 09:29:00 09:29:00 t Specialty/U Annamaria kes - Specialty rology Memori a /Urology Clinic l Clinic [facility] 2019-03-25 2019-03-25 Outpatient Topher Mustafa [id number] 11:00:00 11:00:00 t [facility] ent [facility] 2019-02-06 2019-02-06 Outpatient [facility] [id number] [facility] 05:11:00 05:11:00 Results Test Description Test Time Test Comments Results Result [facility] e Comments - NM ABSCESS LOC 2019-07-22 FAX: COMP BODY 11:11:00 Alicia Mejia MD [phone] Lerna: St: DEP Name: JUAN F LIU [facility] : 1955 Age/S: 64/F [address] [place] [address] Unit #: [id number] Loc: [place] [address] Phys: Alicia Mejia MD Acct: [id number] Dis Date: Status: SHABANA CLI PHONE #: [phone] Exam Date: 07/21/2019 1330 FAX #: [phone] Reason: L02.91, CUTANEOUS ABSCESS. EXAMS: CPT CODE: [id number] NM ABSCESS LOC COMP BODY 65193 WHOLE BODY INDIUM SCAN: HISTORY: Multiple cutaneous [...] CC: Alicia Mejia MD Technologist: Aurelia Marmolejo [facility]; ... Trnscrd Date/Time/By: 07/22/2019 (1111) : By: Megha.NÉSTOR/Megha.[facility] Orig Print D/T: S: 07/22/2019 (1114) PAGE 1 Signed Report AFB culture 2019-07-17 06:13:31 Test Item Value Reference Range Interpretation Comme nts AFB culture isolate No growth after 6 weeks of Specimen InformationSpecimen (test code = 543-9) incubation. Source: TissueSpecimen Site: Breast [place] [facility] [id number] 13:26:01 Test Item Value Reference Range Interpretation Comments Case number (test code = [id number]) Surgical pathology See link below for report (test code = PDF Lab Report [id number]) Result status (test code This is Final Report = [id number]) for [id number] [place] MethodistAFB [id number] 12:32:35 Test Item Value Reference Range Interpretation Comments AFB stain No acid fast Specimen (test code = bacilli (AFB) InformationSpe [facility] children[facility] 676-7) seen. Source: TissueS pecimen Site: Breast [place] MethodistGram [id number] 12:32:35 Test Item Value Reference Range Interpretation Comments Gram stain No WBC's or Specimen isolate (test organisms seen. Information Specimen code = 1469) Source: TissueS pecimen Site: Breast [place] [id number] 13:13:34WrArnoldo hargrove MD 06/04/2019 8:14 AMAirwayPerformed by: Arnoldo Musa MDAuthorized by: Arnoldo Musa MD Location: ORUrgency: ElectiveAnesthesiologist: Arnoldo Musa MDPerformed by: anesthesiologistPreoxygenated with 100% O2: Yes C-spine Precautions Maintained Throughout: Yes Mask Ventilation: Not attemptedFinal Airway Type: Endotracheal airwayFinal Endotracheal Airway: ETTCuffed: Yes Technique Used: Direct laryngoscopyDevices/Methods Used in Placement: Intubating styletInsertion Site: OralBlade Type: MillerLaryngoscope Blade/Videolaryngoscope Blade Size: 2ETT Size (mm): 7.0Cuff at minimum occlusion pressure: Yes Measured from:LipsETT to Lips (cm): 22Placement Verified by: CO2 detection, direct visualization and equal breath sounds Laryngoscopic view: Grade I - full view of glottisRapid Sequence Induction (RSI): No Modified RSI: Yes Number of Attempts at Approach: 1 Maycol MethodistECG 12 [id number] 15:30:30 Test Item Value Reference Range Interpretation Comments Ventricular rate (test 57 code = 253) Atrial rate (test code = 57 255) TN interval (test code = 168 266) QRSD interval (test code 82 = 260) QT interval (test code = 460 264) QTC interval (test code 447 = 265) P axis 1 (test code = 58 267) QRS axis 1 (test code = -32 268) T wave axis (test code = 23 270) EKG impression (test Sinus code = 273) bradycardia-Left axis deviation-Abnormal ECG-No previous ECGs available-Electronica lly Signed By Joy GUAJARDO, Joy ([id number]) on 06/02/2019 10:30:25 AM Severino Muslim- XR SHOULDER 1 V [id number] 11:08:00 FAX: Alicia Mejia MD [phone] Lerna: St: REG Name: JUAN F LIU [facility] Dean oFrbes : 1955 Age/S: 64/F [address] [place] [address] Unit#: [id number] Loc: [place] [address] Phys: Alicia Mejia MD Acct: [id number] Dis Date: Status: REG SDC PHONE #: [phone] Exam Date: 04/16/2019 1059 FAX #: [phone] Reason: PICC PLACEMENT EXAMS: CPT CODE: [id number] XR SHOULDER 1 V RT [id number] Study: - XR SHOULDER 1 V RT 04/16/2019 10:47 AM Patient Name: JUAN F LIU MR: [id number] : 1955; Age: 64 years y/o Female Ordering Physician: Alicia Mejia MD Clinical Indication: PICC PLACEMENT Comparison: None RIGHT SHOULDER, 1 view: No acute fracture, dislocation, or suspicious focal osseous lesion. Right PICC line tip overlies the superior vena cava. The soft tissues are normal. Impression: Right PICC line tip overlies the superior vena cava. SL: [id number] at 1108 Reported and signed by: Ricco Moe M.D. CC: Alicia Mejia MD Technologist: Yamileth Cota RT(R) Trnscrd Date/Time/By: 04/16/2019 (1108) : By: [email or web address] Orig Print D/T: S: 04/16/2019 (1111) PAGE 1 Signed Report
--- OUTSIDE RECORDS SUMMARY | 2020-01-23 22:30 | XMS REPORT ---
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 Problem Diarrhea, unspecified type R19.7 A ctive Problem Irritable bowel syndrome with K58.1 Active constipation Problem Anxiety about health F41.8 Active Problem GERD without esophagitis K21.9 Act anurag Problem History of stroke Z86.73 Active Problem Benign hypertension I10 Active Problem Generalized abdominal pain R10.84 A ctive Problem Lymphadenopathy R59.1 Active Problem History of breast cancer Z85.3 Act anurag 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
--- OUTSIDE RECORDS SUMMARY | 2020-01-23 22:30 | XMS REPORT ---
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 Problem Lymphadenopathy R59.1 Active Problem Depression, unspecified depression F32.9 Active type Assessment Anxiety about health F41.8 Active Problem History of Mcfarland's esophagus Z87.19 Active Assessment History of Mcfarland's esophagus Z87.19 Active Assessment MRSA (methicillin resistant staph Z22.322 Active aureus) culture positive Problem Wound check, abscess Z51.89 Active Problem Mesenteric ischemia K55.9 Active Problem 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 Active Problem Diarrhea, unspecified type R19.7 A ctive Problem Irritable bowel syndrome with K58.1 Active constipation Problem Anxiety about health F41.8 Active Problem Fullness of breast N64.89 Active Problem MRSA (methicillin resistant staph Z22.322 Active aureus) culture positive Problem GERD without esophagitis K21.9 Act anurag Problem Generalized abdominal pain R10.84 A ctive Problem History of thyroid cancer Z85.850 Ac tive Problem History of breast cancer Z85.3 Act anurag Problem Vasculitis I77.6 Active Problem History of stroke Z86.73 Active Medications Medication Code Code Instructions Start End Status Dosage System Date Date Lasix [facility] 29846789854 20 MG Orally Active 1 table t Twice a day Propranolol HCl [facility] 04813373740 80 MG Orally Active 1 tablet Once a day BusPIRone HCl [facility] 80597036044 10 MG Orally Active 1 tablet Three times a day Benadryl Allergy ND 99846178325 25 MG Orally March 30 e 2 tablet every 12 hrs 2018 as needed Levothyroxine ND 58425086777 100 MCG Orally Active 1 tablet Sodium Once a day on an empty stomach in the morning Lisinopril ND 03309031409 10 MG Orally Active 1 ta blet Once a day Valium ND 72797017809 10 MG Orally Active 1 table t Twice a day PRN as neede d anxiety bid Dexilant [facility] 59958419168 60 MG Orally Active 1 caps ule Once a day K-Tab [facility] 29155919033 10 MEQ Orally Active 2 tabl ets Twice a day with food Meclizine HCl [facility] 89242106352 25 MG Orally Active 1 tablet Once a day as needed Phenergan ND 46529841890 25 MG Orally Active 1 tab let every 6 hrs as needed Results No Known Results Summary Purpose eClinicalWorks Submission
--- OUTSIDE RECORDS SUMMARY | 2020-01-23 22:30 | XMS REPORT ---
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 Medications Medication Code Code Instructions Start End Status Dosage System Date Date Bismuth [facility] [address]-51 525 MG/15ML Active 30 ml as Subsalicylate Orally Four needed times a day ProAir HFA [facility] 34123228721 108 (90 Base) Active 2 p uffs as MCG/ACT needed Inhalation every 6 hrs Lisinopril [facility] 58275315935 10 MG Orally Active 1 ta blet Once a day BusPIRone HCl ND 24535749725 10 MG Orally Active 1 tablet Three times a day Propranolol HCl ND 37408550396 80 MG Orally Active 1 tablet Once a day Dexilant [facility] 13847475054 60 MG Orally Active 1 caps ule Once a day Meclizine HCl ND 28709006984 25 MG Orally Active 1 tablet Once a day as needed Levothyroxine ND 93155879956 100 MCG Orally Active 1 tablet Sodium Once a day on an empty stomach in the morning Clindamycin HCl [facility] 73487567518 300mg p.o. q 8 Activ e one hrs Phenergan [facility] [address]-32 25 MG Orally Active 1 t ablet every 6 hrs as needed K-Tab [facility] 43818975418 10 MEQ Orally Active 2 tabl ets Twice a day with food Benadryl Allergy ND 45719379544 25 MG Orally March 30, Activ e 2 tablet every 12 hrs 2018 as needed Curity Plain [facility] 79886795123 - Pack 09/10March 05, Active as Packing Strip daily 2019 directed Aciphex [facility] 01659812832 20 MG Orally Active 1 table t Once a day Lasix ND 69101858702 20 MG Orally Active 1 table t Twice a day Valium [facility] 19150248733 10 MG Orally Active 1 table t Twice a day PRN as neede d anxiety bid Results No Known Results Summary Purpose eClinicalWorks Submission
--- OUTSIDE RECORDS SUMMARY | 2020-01-23 22:30 | XMS REPORT ---
[...] System Code Instructions Start End Date Status Dos age Date K-Tab [facility] 98087768448 10 MEQ Orally Active 2 tabl ets Twice a day with food Results No Known Results Summary Purpose eClinicalWorks Submission
--- OUTSIDE RECORDS SUMMARY | 2020-01-23 22:31 | XMS REPORT ---
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 Problem Wound check, abscess Z51.89 Active [...] History of breast cancer Z85.3 Act anurag Assessment History of Mcfarland's esophagus Z87.19 Active Problem Vasculitis I77.6 Active Problem History of stroke Z86.73 Active Medications Medication Code Code Instructions Start End Status Dosage System Date Date Phenergan NDC 72019631368 25 MG Orally Active 1 tab let every 6 hrs as needed K-Tab NDC 69520065851 10 MEQ Orally Active 2 tabl ets Twice a day with food Levothyroxine [facility] 06265414286 100 MCG Orally Active 1 tablet Sodium Once a day on an empty stomach in the morning Lisinopril [facility] 42987133048 10 MG Orally Active 1 ta blet Once a day Meclizine HCl [facility] 75329355799 25 MG Orally Active 1 tablet Once a day as needed Dexilant [facility] 60884670456 60 MG Orally Active 1 caps ule Once a day Propranolol HCl [facility] 82249672877 80 MG Orally Active 1 tablet Once a day Lasix [facility] 61361106527 20 MG Orally Active 1 table t Twice a day BusPIRone HCl [facility] 38664800789 10 MG Orally Active 1 tablet Three times a day Valium [facility] 04862777785 10 MG Orally Active 1 table t Twice a day PRN as neede d anxiety bid Benadryl Allergy [facility] 97004301255 25 MG Orally March 30 e 2 tablet every 12 hrs 2018 as needed Results No Known Results Summary Purpose eClinicalWorks Submission
--- NOTE | 2020-01-23 23:32 | EDPHYS ---
Physician Documentation [facility] Name: Carine Sheikh Age: 64 yrs Sex: Female : 1955 Arrival Date: 01/23/2020 Time: 22:30 Bed 8 Private MD: ED Physician Dimitri Forbes HPI: 01/22 23:30 This 64 yrs old Female presents to ER via Ambulatory with complaints of Fall kb Injury. 23:30 Details of fall: The patient fell from an upright position, while walking. Onset: The kb symptoms/episode began/occurred today. Associated injuries: The patient sustained right elbow, decreased range of motion, painful injury. Severity of symptoms: At their worst the symptoms were moderate, in the emergency department the symptoms are unchanged. The patient has not experienced similar symptoms in the past. The patient has not recently seen a physician. 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 c/o pain to right elbow. Historical: - Allergies: 22:55 ACETAMINOPHEN; tl2 22:55 butorphanol tartrate; tl2 22:55 Ciprofloxacin; tl2 22:55 Codeine; tl2 22:55 Droperidol; tl2 22:55 GUAIFENESIN; tl2 22:55 hydrocodone bitartrate; tl2 22:55 Iodine and Iodide Containing Products; tl2 22:55 meperidine HCl; tl2 22:55 Morphine; tl2 22:55 PENICILLINS; tl2 22:55 prochlorperazine Edisylate; tl2 22:55 Prochlorperazine Maleate; tl2 22:55 PROPOXYPHENE; tl2 22:55 QUINOLONES; tl2 22:55 Sulfa (Sulfonamide Antibiotics); tl2 - Home Meds: 22:55 Benadryl Oral [Active]; BuSpar Oral [Active]; Lasix Oral [Active]; levothyroxine oral tl2 [Active]; Meclizine Oral [Active]; Phenergan Oral [Active]; Potassium Chloride Oral [Active]; Propranolol Oral [Active]; Valium Oral [Active]; - PMHx: 22:55 Anemia; barretts espophagus; BREAST CA; colon resection; 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 - Social history:: Smoking status: Patient reports the use of cigarette tobacco products. ROS: 23:29 Constitutional: Negative for fever, chills, and weight loss, Cardiovascular: Negative kb for chest pain, palpitations, and edema, Respiratory: Negative for shortness of breath, cough, wheezing, and pleuritic chest pain, Abdomen/GI: Negative for abdominal pain, nausea, vomiting, diarrhea, and constipation, Back: Negative for injury and pain, Skin: Negative for injury, rash, and discoloration, Neuro: Negative for headache, weakness, numbness, tingling, and seizure. 23:29 MS/extremity: Positive for injury or acute deformity, decreased range of motion, pain, swelling, tenderness, of the right elbow. Exam: 23:29 Constitutional: This is a well developed, well nourished patient who is awake, alert, kb and in no acute distress. Head/Face: Normocephalic, atraumatic. Chest/axilla: Normal chest wall appearance and motion. Nontender with no deformity. No lesions are appreciated. Cardiovascular: Regular rate and rhythm with a normal S1 and S2. No gallops, murmurs, or rubs. Normal PMI, no JVD. No pulse deficits. Respiratory: Lungs have equal breath sounds bilaterally, clear to auscultation and percussion. No rales, rhonchi or wheezes noted. No increased work of breathing, no retractions or nasal flaring. Abdomen/GI: Soft, non-tender, with normal bowel sounds. No distension or tympany. No guarding or rebound. No evidence of tenderness throughout. Skin: Warm, dry with normal turgor. Normal color with no rashes, no lesions, and no evidence of cellulitis. Neuro: Awake and alert, GCS 15, oriented to person, place, time, and situation. Cranial nerves II-XII grossly intact. Motor strength 5/5 in all extremities. Sensory grossly intact. Cerebellar exam normal. Normal gait. 23:29 Musculoskeletal/extremity: Extremities: grossly normal except: noted in the right elbow: decreased ROM, pain, swelling, tenderness, ROM: limited active range of motion due to pain, in the right elbow, Circulation is intact in all extremities. Sensation intact. Vital Signs: 22:51 Pulse 84; Resp 18; Temp 98.3(O); Pulse Ox 100% on R/A; Weight 60.78 kg; Height 5 ft. 4 tl2 in. (162.56 cm); Pain 8/10; 23:59 BP 122 / 78; Pulse 86; Resp 18; Temp 98; Pulse Ox 100% on R/A; mg2 22:51 Body Mass Index 23.00 (60.78 kg, 162.56 cm) tl2 MDM: 22:49 Patient medically screened. kb 23:28 Data reviewed: vital signs, nurses notes. Data interpreted: Pulse oximetry: on room air kb is 100 %. Interpretation: normal. Counseling: I had a detailed discussion with the patient and/or guardian regarding: the historical points, exam findings, and any diagnostic results supporting the discharge/admit diagnosis, radiology results, the need for outpatient follow up, a family practitioner, to return to the emergency department if symptoms worsen or persist or if there are any questions or concerns that arise at home. 01/22 22:59 Order name: Elbow Right 3 View XRAY kb 01/22 23:28 Order name: Posterior Elbow Splint; Complete Time: 23:44 kb 01/22 23:28 Order name: Sling; Complete Time: 23:44 kb Administered Medications: 23:38 Drug: Valium 2 mg Route: PO; mg2 23:40 Follow up: Response: No adverse reaction mg2 Disposition: 01/23 08:03 Co-signature as Attending Physician, Dimitri Forbes MD I agree with the assessment and norberto plan of care. Disposition: 01/23/20 23:32 Discharged to Home. Impression: Fall on same level from slipping, tripping and stumbling, Pain in right elbow. - Condition is Stable. - Discharge Instructions: Musculoskeletal Pain. - Medication Reconciliation Form, Thank You Letter, Antibiotic Education, Prescription Opioid Use form. - Follow up: Emergency Department; When: As needed; Reason: Worsening of condition. Follow up: Private Physician; When: 2 - 3 days; Reason: Recheck today's complaints, Continuance of care, Re-evaluation by your physician. Signatures: Dispatcher [employer] EDClarisa Nix, Dimitri Ma MD MD cha Knox, Taylor RN RN tl2 Gardose, Yuniel, RN RN mg2 Corrections: (The following items were deleted from the chart) 00:00 01/22 23:32 01/23/2020 23:32 Discharged to Home. Impression: Fall on same level from mg2 slipping, tripping and stumbling; Pain in right elbow. Condition is Stable. Forms are Medication Reconciliation Form, Thank You Letter, Antibiotic Education, Prescription Opioid Use. Follow up: Emergency Department; When: As needed; Reason: Worsening of condition. Follow up: Private Physician; When: 2 - 3 days; Reason: Recheck today's complaints, Continuance of care, Re-evaluation by your physician. kb
--- NOTE | 2020-01-23 23:32 | ER ---
Nurse's Notes [facility] Name: Carine Sheikh Age: 64 yrs Sex: Female : 1955 Arrival Date: 01/23/2020 Time: 22:30 Bed 8 Private MD: Diagnosis: Fall on same level from slipping, tripping and stumbling;Pain in right elbow Presentation: 01/22 22:51 Chief complaint: Patient states: Tripped over extension cord and fell on right elbow, tl2 pt reports pain on movement and is unable to straighten right arm, slight swelling noted. Pt sustained abrasion to right knee but maintains full ROM. Denies head injury. Coronavirus screen: Proceed with normal triage. Patient denies a cough. Patient denies shortness of breath or difficulty breathing. Patient denies measured and/or subjective temperature greater than 100.4F prior to today's visit. Patient denies travel on a cruise ship or to a country the [facility] currently lists as an affected area. Patient denies contact with known and/or suspected case of COVID-19. Ebola Screen: No symptoms or risks identified at this time. Initial Sepsis Screen: Does the patient meet any 2 criteria? No. Patient's initial sepsis screen is negative. Does the patient have a suspected source of infection? No. Patient's initial sepsis screen is negative. Risk Assessment: Do you want to hurt yourself or someone else? Patient reports no desire to harm self or others. Onset of symptoms was January 23, 2020 at 20:00. 22:51 Method Of Arrival: Ambulatory tl2 22:51 Acuity: AZEEM 3 tl2 Triage Assessment: 22:55 General: Appears in no apparent distress. uncomfortable, Behavior is calm, cooperative, tl2 appropriate for age. Pain: Complains of pain in right elbow. Musculoskeletal: Range of motion: limited in right elbow Swelling present in right elbow. Historical: - Allergies: 22:55 ACETAMINOPHEN; tl2 22:55 butorphanol tartrate; tl2 22:55 Ciprofloxacin; tl2 22:55 Codeine; tl2 22:55 Droperidol; tl2 22:55 GUAIFENESIN; tl2 22:55 hydrocodone bitartrate; tl2 22:55 Iodine and Iodide Containing Products; tl2 22:55 meperidine HCl; tl2 22:55 Morphine; tl2 22:55 PENICILLINS; tl2 22:55 prochlorperazine Edisylate; tl2 22:55 Prochlorperazine Maleate; tl2 22:55 PROPOXYPHENE; tl2 22:55 QUINOLONES; tl2 22:55 Sulfa (Sulfonamide Antibiotics); tl2 - Home Meds: 22:55 Benadryl Oral [Active]; BuSpar Oral [Active]; Lasix Oral [Active]; levothyroxine oral tl2 [Active]; Meclizine Oral [Active]; Phenergan Oral [Active]; Potassium Chloride Oral [Active]; Propranolol Oral [Active]; Valium Oral [Active]; - PMHx: 22:55 Anemia; barretts espophagus; BREAST CA; colon resection; 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 - Social history:: Smoking status: Patient reports the use of cigarette tobacco products. Screenin:56 Abuse screen: Denies threats or abuse. Nutritional screening: No deficits noted. tl2 Tuberculosis screening: No symptoms or risk factors identified. Fall Risk Fall in past 12 months (25 points). Assessment: 23:04 General: Appears in no apparent distress. comfortable, Behavior is calm, cooperative. mg2 Pain: Complains of pain in right elbow. Neuro: Level of Consciousness is awake, alert, obeys commands, Oriented to person, place, time, situation. Cardiovascular: Capillary refill < 3 seconds Patient's skin is warm and dry. Respiratory: Airway is patent Respiratory effort is even, unlabored, Respiratory pattern is regular, symmetrical. GI: No signs and/or symptoms were reported involving the gastrointestinal system. : No signs and/or symptoms were reported regarding the genitourinary system. EENT: No signs and/or symptoms were reported regarding the EENT system. Musculoskeletal: Circulation, motion, and sensation intact. Capillary refill < 3 seconds, Reports pain in right elbow. Vital Signs: 22:51 Pulse 84; Resp 18; Temp 98.3(O); Pulse Ox 100% on R/A; Weight 60.78 kg; Height 5 ft. 4 tl2 in. (162.56 cm); Pain 8/10; 23:59 BP 122 / 78; Pulse 86; Resp 18; Temp 98; Pulse Ox 100% on R/A; mg2 22:51 Body Mass Index 23.00 (60.78 kg, 162.56 cm) tl2 ED Course: 22:30 Patient arrived in ED. fj1 22:49 Clarisa Alexander FNP-C is [facility]. kb 22:49 Dimitri Forbes MD is Attending Physician. kb 22:53 Triage completed. tl2 22:55 Arm band placed on right wrist. tl2 23:03 Yuniel Almanzar, RN is Primary Nurse. mg2 23:04 Patient has correct armband on for positive identification. Pulse ox on. NIBP on. Door mg2 closed. 23:04 No provider procedures requiring assistance completed. Patient did not have IV access mg2 during this emergency room visit. 23:26 Elbow Right 3 View XRAY In Process Unspecified. EDMS 23:59 Orthoglass splint: posterior long arm splint applied to the right arm. applied by mg2 Delicia roll skinner Sling applied to right arm. Administered Medications: 23:38 Drug: Valium 2 mg Route: PO; mg2 23:40 Follow up: Response: No adverse reaction mg2 Outcome: 23:32 Discharge ordered by . kb 01/23 00:00 Discharged to home ambulatory. mg2 Condition: stable Discharge instructions given to patient, Instructed on discharge instructions, follow up and referral plans. Demonstrated understanding of instructions, follow-up care, splint care. 00:00 Patient left the ED. mg2 Signatures: Dispatcher [employer] EDVT Clarisa Alexander FNP-C FNP-Ckb Knox, Taylor, RN RN tl2 Yuniel Almanzar, RN RN [facility] [address] fj1
[2020-01-23] MEDS ORDERED: DIAZEPAM 2 MG TABLET ONE (23:41)
[2020-01-24 00:14] VITALS: O2SAT 100
[2020-01-24 00:15] VITALS: BP 122/78; TEMP 98
--- NOTE | 2020-01-24 09:48 | RAD REPORT ---
EXAM DESCRIPTION: RAD - Elbow Right 3 View - 01/23/2020 11:25 pm CLINICAL HISTORY: Elbow pain FINDINGS: Bones are osteoporotic. No fracture or dislocation is seen. On the lateral view there is suggestion of an elevated anterior humeral fat pad. In the setting of tr auma this often indicates a hemarthrosis which can signify an occult fracture
== END 2020-01-24 | disposition home or self-care (01) ==
LOC: ER 22:26
DX: M25.521 Pain in right elbow (principal); W01.0XXA Fall on same level from slipping, tripping and stumbling without subsequent striking against object, initial encounter; Y93.01 Activity, walking, marching and hiking; Y92.9 Unspecified place or not applicable; I10 Essential (primary) hypertension; Z85.3 Personal history of malignant neoplasm of breast; Z88.0 Allergy status to penicillin; Z88.2 Allergy status to sulfonamides; Z88.5 Allergy status to narcotic agent; Z88.6 Allergy status to analgesic agent; Z88.8 Allergy status to other drugs, medicaments and biological substances
CPT/HCPCS: 99284

== ENCOUNTER 2020-08-25 11:45 | Day surgery (SDC) | payer OTHER ==
[2020-08-24 15:41] LABS: Protime INR 1.03
--- OUTSIDE RECORDS SUMMARY | 2020-08-25 11:55 | XMS REPORT | Clinical Summary ---
:1955 Author Organization [facility] Address [address] [place] [address] Care Team Providers Name Role Phone Shanta Mackay VISUAL MERCHANDISING MANAGER-C Primary Care Provider Allergies Active Allergy Reactions Severity Noted Date Comments Acetaminophen Rash Low 02/29/2020 Butorphanol Tartrate Rash Low 12/20/2016 Ciprofloxacin Rash Low 12/20/2016 Codeine Rash Low 12/20/2016 Droperidol Anaphylaxis High 12/20/2016 Hydrocodone-Acetaminophen Rash Low 12/20/2016 Iodinated Contrast Media Other (See Comments) 06/02/20 19 Iodine And Iodide Containing Rash Low 12/20/2016 Products Latex Rash Low 06/02/2019 Meperidine Hcl Rash Low 12/20/2016 Morphine Rash Low 06/02/2019 Naproxen Rash Low 12/20/2016 Naprosin Penicillins Rash Low 12/20/2016 Piroxicam Rash Low 12/20/2016 Prednisone Rash Low 12/20/2016 Prochlorperazine Edisylate Rash Low 12/20/2016 Propoxyphene Rash Low 06/02/2019 Propoxyphene N-Acetaminophen Rash Low 12/20/2016 Sulfa (Sulfonamide Antibiotics) Rash Low 7 Medications Medication Sig Dispensed Refills Start Date End Date Status levothyroxine Take 100 mcg 3 05/18/2019 Ac tive (SYNTHROID, LEVOXYL) by mouth every 100 mcg tablet morning. busPIRone (BUSPAR) 5 Take 5 mg by 3 03/16/2019 Active MG tablet mouth every morning. furosemide (LASIX) 20 every morning. 3 04/01/2019 Active mg tablet diazePAM (VALIUM) 10 every morning. 3 03/11/2019 Active MG tablet meclizine (ANTIVERT) as needed. 3 03/31/2019 Active 25 mg tablet propranolol (INDERAL) every morning. 3 04/19/2019 Active 80 MG tablet BANOPHEN 50 mg 2 (two) times 3 05/10/2019 Active capsule a day. zolpidem (AMBIEN) 10 Take 10 mg by 3 05/20/2019 Active mg tablet mouth nightly as needed. RABEprazole (ACIPHEX) Take 20 mg by 3 05/10/2019 Active 20 mg EC tablet mouth daily. promethazine as needed. 5 03/10/2019 Activ e (PHENERGAN) 25 MG tablet potassium chloride 2 (two) times 0 11/22/2016 Active (KLOR-CON SPRINKLE) a day. 10 MEQ CR capsule ondansetron (ZOFRAN) Take 4 mg by 1 05/19/2019 Active 4 MG tablet mouth every 12 (twelve) hours as needed. nitroglycerin APPLLY 1 PATCH 3 04/03/2019 Active (NITRODUR) 0.4 mg/hr DAILY lisinopril Take 10 mg by 3 03/26/2019 Acti ve (PRINIVIL,ZESTRIL) 10 mouth nightly. mg tablet fluticasone as needed. 3 03/14/2019 Active propionate (FLONASE) 50 mcg/actuation nasal spray dexlansoprazole every morning. 0 12/10/2016 Active (DEXILANT) 60 mg capsule triamcinolone 2 (two) times 4 03/16/2019 D iscontinued (KENALOG) 0.1 % cream a day. 0 mupirocin (BACTROBAN) APPLY TO 0 03/03/2019 02 Discontinued 2 % ointment AFFECTED AREA 0 3 TIMES A DAY FOR 7 DAYS acetaminophen-codeine Take 1 tablet 0 03/10/2019 Discontinued (TYLENOL WITH CODEINE by mouth every 0 #3) 300-30 mg per 4 (four) hours tablet as needed. acetaminophen-codeine TAKE 1 TABLET 2 04/18/2019 Discontinued (TYLENOL WITH CODEINE BY MOUTH 1 0 #4) 300-60 mg per HOUR BEFORE tablet DRESSING CHANGE DAPTOMYCIN IV Infuse 500 mg 0 Di scontinued into a venous 0 catheter daily. Active Problems Problem Noted Date History of breast cancer 03/03/2020 Encounters Date Type Specialty Care Team Description 03/03/2020 Anesthesia Event General Surgery Negro Balderas MD Ali, Faisal, AIRPORT CONTROL OPERATOR 03/03/2020 Surgery General Surgery Vangie Agudelo REVISIO N BILATERAL MD Anastasiya RECONSTRUCTED BREASTS WITH LO ISMAEL FLAPS/ AUTO-AUGMENTATI ON, MULTIPLE INTERC OSTAL BLOCKS 03/03/2020 Hospital Encounter General Surgery Vangie Agudelo P reoperative testing MD Anastasiya 02/29/2020 Pre-Admit Testing Pre-Admission Vangie Agudelo Preo perative testing Appointment Testing MD Anastasiya (Primary Dx) 02/29/2020 Travel 02/25/2020 Travel 01/25/2020 Hospital Encounter Radiology Vangie Agudelo Pers onal history of malignant neoplasm of breast; MD Anastasiya S/P mastectomy, bilateral 01/25/2020 Travel 01/21/2020 Travel 01/20/2020 Travel 01/18/2020 Transcribe Orders Access Vangie Agudelo Persyvonne nal history of malignant neoplasm of breast (Primary Dx); MD Anastasiya S/P mastectomy, bilateral after 08/25/2019 Surgical History Surgery Date Site/Laterality Comments HERNIA REPAIR FUNDOPLICATION, LALY MASTECTOMY MODIFIED RADICAL W/ Left AXILLARY LYMPH NODES W/ OR W/O PECTORALIS MINOR MASTECTOMY MODIFIED RADICAL Bilateral SECTION KNEE ARTHRODESIS HYSTERECTOMY CHOLECYSTECTOMY APPENDECTOMY ABDOMINAL SURGERY 95% colon nathan liz SMALL INTESTINE SURGERY INCISION AND DRAINAGE, BREAST, 06/04/2019 Breast/Bilateral Procedure: IRRIGATION AND WITH WOUND CLOSURE DEBRIDEMENT O F BILATERAL BREASTS WITH RICK SURE, MULTIPLE INTERCO STAL BLOCKS; Surgeon: Vangie Agudelo MD; Loca tion: [facility] OR; Service: Pl astics; Laterality: Bila teral; REVISION, RECONSTRUCTION, 03/03/2020 Breast/Bilateral Proce dure: REVISION BREAST BILATERAL RECONS TRUCTED BREASTS WITH LOC AL FLAPS/ AUTO-AUGMENTATIO N, MULTIPLE INTERCOSTAL BLOC KS; Surgeon: Vangie Agudelo MD; Loca tion: [facility] OR; Service: Pl astics; Laterality: Bila teral; Medical History Medical History Date Comments Anemia Anxiety Depression GERD (gastroesophageal reflux disease) Hiatal hernia Hypertension Hypothyroidism Arrhythmia Tricuspid valve disorder Infection of breast picc line for iv ant ibiotics at home Crohn's colitis (HCC) Cancer (HCC) 1994 breast cancer Stroke (HCC) 2000 no deficit PONV (postoperative nausea and vomiting) Family History Medical History Relation Name Comments Hypertension Father Prostatitis Father COPD Mother Heart disease Mother Bladder Cancer Sister Breast cancer Sister Relation Name Status Comments Father Alive Mother Sister Social History Tobacco Use Types Packs/Day Years Used Date Never Smoker Smokeless Tobacco: Never Used Alcohol Use Drinks/Week oz/Week Comments Never Alcohol Habits Answer Date Recorded How often do you have a drink containing alcohol? Never 06/02/2019 How many drinks containing alcohol do you have on a typical Not asked day when you are drinking? How often do you have six or more drinks on one occasion? No t asked Sex Assigned at Date Recorded Not on file Last Filed Vital Signs Vital Sign Reading Time Taken Comments Blood Pressure 106/59 03/03/2020 12:30 PM CDT Pulse 69 03/03/2020 12:30 PM CDT Temperature 36.1 C (96.9 F) 03/03/2020 11:40 AM CDT Respiratory Rate 16 03/03/2020 12:30 PM CDT Oxygen Saturation 97% 03/03/2020 12:30 PM CDT Inhaled Oxygen Concentration - - Weight 64.8 kg (142 lb 12.8 oz) 03/03/2020 7:22 AM CDT Height 162.6 cm (5' 4") 03/03/2020 7:22 AM CDT Body Mass Index 24.51 03/03/2020 7:22 AM CDT Plan of Treatment Health Maintenance Due Date Last Done Comments COVID-19 VACCINE (#1) 1971 CERVICAL CANCER SCREENING 01/29/1976 COLONOSCOPY SCREENING 2005 SHINGLES VACCINES (#1) 2005 65+ PNEUMOCOCCAL VACCINE (1 of 1 - PPSV23) 01/29/2020 INFLUENZA VACCINE 04/09/2020 BREAST CANCER SCREENING 01/24/2022 01/25/2020 Procedures Procedure Name Priority Date/Time Associated Diagnosis Comme nts WV AN ELECTIVE Routine 03/03/2020 8:14 Results f or this ENDOTRACHEAL AIRWAY AM CDT procedur e are in the results section. REVISION, 03/03/2020 7:41 HISTORY OF BILATERAL RECONSTRUCTION, BREAST AM CDT MASTECTOMIES W/ BREAST DEFORMITY AFTER TREATMENT FOR CHRONIC BILATERAL BREAST INFECTION S L02.91, Z42.1, Z85.3, T81.40XD, N65.0 ECG 12-LEAD Routine 02/29/2020 11:27 Preoperative testing Res ults for this AM CDT procedure are i n the results section. ESTIMATED GFR Routine 02/29/2020 10:58 Results fo r this AM CDT procedure are i n the results section. HC COMPLETE BLD COUNT Routine 02/29/2020 10:58 Preoperative te sting Results for this W/AUTO DIFF AM CDT procedure are i n the results section. COMPREHENSIVE Routine 02/29/2020 10:58 Preoperative testing Re sults for this METABOLIC PANEL AM CDT procedure ar e in the results section. PROTHROMBIN TIME WITH Routine 02/29/2020 10:58 Preoperative te sting Results for this INR AM CDT procedure are i n the results section. PARTIAL THROMBOPLASTIN Routine 02/29/2020 10:58 Preoperative t esting Results for this TIME (PTT) AM CDT procedure are i n the results section. COVID-19 QUALITATIVE Routine 02/29/2020 10:58 Preoperative rosales ting Results for this PCR AM CDT procedure are i n the results section. US BREAST COMPLETE Routine 01/25/2020 11:21 Personal history o f Results for this BILATERAL AM CDT malignant neoplasm procedure are in of breast the results S/P mastectomy, section. bilateral after 08/25/2019 Results Airway (03/03/2020 8:14 AM CDT) Narrative Performed At Tyler Panchal CRNA 2019 8:15 AM Airway Date/Time: 03/03/2020 7:52 AM Performed by: Tylre Panchal CR NA Authorized by: Negro Balderas MD Location: OR Urgency: Elective Difficult Airway: No Resident/AIRPORT CONTROL OPERATOR/AA: Tyler Panchal CRNA Performed by: resident/AIRPORT CONTROL OPERATOR/AA Preoxygenated with 100% O2: Yes C-spine Precautions Maintained Throughou t: Yes Mask Ventilation: Easy mask Final Airway Type: Endotracheal airway Final Endotracheal Airway: ETT Cuffed: Yes Technique Used: Direct laryngoscopy Devices/Methods Used in Placement: Int ubating stylet Insertion Site: Oral Blade Type: Tori Laryngoscope Blade/Videolaryngoscope Daljit fontenot Size: 3 ETT Size (mm): 7.0 Cuff at minimum occlusion pressure: Yes Measured from: Lips ETT to Lips (cm): 20 Placement Verified by: CO2 detection, di rect visualization and equal breath sounds Laryngoscopic view: Grade I - full vie w of glottis Number of Attempts at Approach: 1 ECG 12 lead (02/29/2020 11:27 AM CDT) Pathologist [facility] Ventricular rate 57 [facility] Atrial rate 114 [facility] WV interval 170 [facility] QRSD interval 86 [facility] QT interval 462 [facility] QTC interval 449 [facility] P axis 1 59 [facility] QRS axis 1 -23 [facility] T wave axis 13 [facility] EKG impression Sinus tachycardia with [facility] 2nd degree AV block with 2:1 AV conduction-Abnormal ECG-In automated comparison with ECG of 02-JUN-2019 09:21,-Sinus rhythm is now with 2nd degree AV block- Specimen Narrative Performed At This result has an attachment that is no t available. Performing Organization Address City/State/ZIP Code Phon e Number [facility] MUSE [address] [place] [address] Estimated GFR (02/29/2020 10:58 AM CDT) Pathologist [facility] Estimated GFR 77 mL/min/1.73 [place] YAZDANISM Comment: m2 CLEAR LOZADA Catergory Units Interpretation HOS PITAL G1 >=90 Normal or high G2 60-89 Mildly decreased G3a 45-59 Mildly to moderately decreas ed G3b 30-44 Moderately to severely decre ased G4 15-29 Severely decreased G5 <15 Kidney failure The eGFR was calculated using the Chronic Kidney Disea se Epidemiology Collaboration (CKD-EPI) equation. Interpretation is based on recommendations of the National Kidney Foundation-Kidney Disease Outcomes Vamshi lity Initiative (NKF-KDOQI) published in 2014. Specimen Performing Organization Address City/State/ZIP Code Phon e Number [facility] DEPARTMENT OF PATHOLOGY AND [address] [place] [address] GENOMIC MEDICINE [facility] [address] [place], [place] [address] [facility] COVID-19 qualitative PCR (02/29/2020 10:58 AM CDT) Pathologist [facility] Interpretation Negative results do not prec lude 2019-nCoV infection and should not be used as the sole basis for treatment or other patient management decisions. Negative results must be combined with clinical observations, patient history, and epidemiological [place] information. [facility] COVID-19 qualitative Not-Detected Not-Detecte [place] PCR result d [facility] COVID-19 qualitative See link below for [place] PCR PDF Lab YAZDANISM ReportComment: Case HOSPITAL Number: [id number] Specimen Nasopharyngeal Performing Organization Address City/[facility]/ZIP Code Phon e Number [facility] DEPARTMENT OF PATHOLOGY AND [address], [place] [address] [facility] [address] [place] [address] [facility] Partial thromboplastin time, activated (02/29/2020 10:58 AM CDT) Pathologist [facility] PTT 42.1 (H) 23.0 - 36.0 [facility] Comment: [facility] PTT therapeutic range for unfractionated heparin is HOSPITAL 61.0-112.0 seconds which corresponds to Anti-Xa 0.3-0.7 U/ml. Specimen Blood Performing Organization Address [facility] Phon e Number [facility] DEPARTMENT OF PATHOLOGY AND [id number] [place] [address] Prothrombin time with INR (02/29/2020 10:58 AM CDT) [facility] Prothrombin time 13.4 11.5 - 14.5 [facility] INR 1.0 [place] Comment: [facility] International Normalized Ratio (INR) is a [facility] monitoring tool for patients who are stable on oral anticoagulant therapy. An INR of 2.0-3.0 is suggested for deep vein thrombosis/pulmonary embolism. Specimen Blood Performing Organization Address City/[facility] Phon e Number [facility] DEPARTMENT OF PATHOLOGY AND [address] [place] [id number] [facility] [id number] [place] [address] CBC with platelet and differential (02/29/2020 10:58 AM CDT) Pathologist [facility] WBC 5.40 4.50 - 11.00 k/uL [facility] RBC 4.87 4.20 - 5.50 m/uL [facility] HGB 12.3 12.0 - 16.0 g/dL [facility] HCT 40.0 37.0 - 47.0 % [facility] MCV 82.1 82.0 - 100.0 fL [facility] MCH 25.3 (L) 27.0 - 34.0 pg [facility] MCHC 30.8 (L) 31.0 - 37.0 g/dL [facility] RDW - SD 41.5 37.0 - 55.0 fL [facility] MPV 11.0 8.8 - 13.2 fL [facility] Platelet count 283 150 - 400 k/uL [facility] Nucleated RBC 0.00 /100 WBC [facility] Neutrophils 62.0 39.0 - 69.0 % [facility] Lymphocytes 30.0 25.0 - 45.0 % [facility] Monocytes 6.3 0.0 - 10.0 % [facility] Eosinophils 1.3 0.0 - 5.0 % [facility] Basophils 0.2 0.0 - 1.0 % [facility] Specimen Nasopharyngeal Performing Organization Address City/State/ZIP Code Phon e Number [facility] DEPARTMENT OF PATHOLOGY AND [address] [place] [address] GENOMIC MEDICINE [facility] [address] [place], [place] [address] [facility] Comprehensive metabolic panel (02/29/2020 10:58 AM CDT) Sodium 144 135 - 148 [facility] mEq/L [facility] Potassium 3.5 3.5 - 5.0 [facility] mEq/L [facility] Chloride 101 98 - 112 [facility] mEq/L [facility] CO2 31 24 - 31 mEq/L [facility] Anion gap 12@ANIO 7 - 15 mEq/L [facility] BUN 14 8 - 23 mg/dL [facility] Creatinine 0.80 0.50 - 0.90 [facility] mg/dL [facility] Glucose 94 65 - 99 mg/dL [facility] Calcium 9.6 8.8 - 10.2 [facility] mg/dL [facility] Protein 7.6 6.3 - 8.3 [facility] Comment: g/dL [facility] 4.6-7.0 g/dL 1 week 4.4-7.6 g/dL 7 months-1year 5.1-7.3 g/dL 1-2 years 5.6-7.5 g/dL >3 years 6.0-8.0 g/dL 18-150 6.3-8.3 g/dL Albumin 4.6 3.5 - 5.0 [facility] g/dL [facility] A/G ratio 1.5 0.7 - 3.8 [facility] Alkaline phosphatase 104 35 - 104 U/L [facility] AST 23 10 - 35 U/L [facility] ALT 13 5 - 50 U/L [facility] Total bilirubin 0.5 0.0 - 1.2 [facility] mg/dL [facility] Specimen Nasopharyngeal Performing Organization Address City/[facility] Phon e Number [facility] DEPARTMENT OF PATHOLOGY AND [address] [place] [address] GENOMIC MEDICINE [facility] [address] [place], [place] [address] [facility] US Breast Complete Bilateral (01/25/2020 11:21 AM CDT) Specimen Narrative Performed At PROCEDURE: US BREAST COMPLETE BILATERAL [facility] Bilateral real-time chest wall ultrasound included all four quadrants regions under close supervision by the r adiologist. INDICATION: 64-year-old female with a history of bilat eral mastectomies status post reconstruction with multiple infections pr esenting for evaluation for potential fluid collection prior [facility] in February. COMPARISON: None available. FINDINGS: Bilateral reconstructed changes are noted in both breasts. No underlying fluid collection is identi fied. IMPRESSION: No suspicious finding in b [facility] mastectomy beds. RECOMMENDATION: Clinical follow-up is re commended. Findings and recommendations were discus sed with the patient. BI-RADS 1: NEGATIVE [id number] Performing Organization Address City/State/ZIP Code Phon e Number [facility] [address] [place] [address] after 08/25/2019 Insurance Payer Benefit Plan / Subscriber ID Effective Dates Phone Addre ss Type Group MEDICARE MEDICARE PART A [id number] 2003-Present [facility] [place] B Advance Directives For more information, please contact: [phone] Type Date Recorded Patient Etcher Machine Explanati on Advance Directives, Living Will 06/03/2019 4:01 PM and Medical Power of Registered Phlebotomist Part Time
--- OUTSIDE RECORDS SUMMARY | 2020-08-25 11:56 | XMS REPORT | Continuity of Care Document ---
:1955 Author Organization [facility] t Address [address] [place] [address] Care Team Providers Name Role Phone Payton Wilkins Primary Care Physician Anastasiya Agudelo MD Attending Clinician Marco Balderas MD Attending Clinician Margo DAHL Attending Clinician ALEJANDRO Admitting Clinician Unavailable Payers Payer Name Policy Type Policy Effective Date Expiration Date Sour ce Number MEDICAREMEDICARE PART [id number] Mike Monson AND 00:00:00 Faith [id number] 2002[place] [facility] [place] Condition Condition Condition Status Onset Resolution Last Treating Co mments Source Name Details Category Date Date Treatment Clinician Date History of History of Disease Active 2019- [place] breast breast 03-03 [facility] cancer cancer 00:00: st 00 Allergies, Adverse Reactions, Alerts Allergy Allergy Status Severity Reaction(s) Onset Inactive Treating Comm ents Source Name Type Date Date Clinician Acetamin Propensi Active Rash 2019- [place] ophen ty to 02-28 [facility] adverse 00:00: st reaction 00 s to drug Iodinate Propensi Active Other (See Ho ankur d ty to Comments) 06-02 [facility] Contrast adverse 00:00: st Media reaction 00 s to drug Latex Propensi Active Rash Severino ty to 06-02 [facility] adverse 00:00: st reaction 00 s to drug Morphine Propensi Active Rash [place] ty to 06-02 [facility] adverse 00:00: st reaction 00 s to drug Propoxyp Propensi Active Rash [place] hene ty to 06-02 [facility] adverse 00:00: st reaction 00 s to drug Penicill DA Active U [facility] ins 8-30 Clear 00:00: [facility] iodine DA Active U [facility] 8-30 Clear 00:00: [facility] Sulfa DA Active U 2018- [facility] (Sulfona 8-30 Clear mide 00:00: [place] Antibiot 00 [facility] prochlor DA Active U [facility] perazine 8-30 Clear 00:00: [facility] 00 [facility] droperid DA Active U 2018- [facility] ol 8-30 Clear 00:00: [facility] 00 [facility] soap DA Active U 2018-0 [facility] 8-30 Clear 00:00: [facility] 00 [facility] povidone DA Active U [facility] -iodine 8-30 Clear 00:00: [facility] 00 [facility] meperidi DA Active U 0 [facility] ne 8-30 Clear 00:00: [facility] Butorpha Propensi Active Rash [place] nol ty to 12-20 [facility] Tartrate adverse 00:00: st reaction 00 s to drug Ciproflo Propensi Active Rash [place] xacin ty to 12-20 [facility] adverse 00:00: st reaction 00 s to drug Codeine Propensi Active Rash Severino ty to 12-20 [facility] adverse 00:00: st reaction 00 s to drug Droperid Propensi Active Anaphylaxis [place] ol ty to 4 [facility] adverse 00:00: st reaction 00 s to drug Hydrocod Propensi Active Rash [place] one-Acet ty to 12-20 [facility] aminophe adverse 00:00: st n reaction 00 s to drug Iodine Propensi Active Rash [place] And ty to 12-20 [facility] Iodide adverse 00:00: st Containi reaction 00 ng s to Products drug Meperidi Propensi Active Rash [place] ne Hcl ty to 12-20 [facility] adverse 00:00: st reaction 00 s to drug Naproxen Propensi Active Rash Naprosin [place] ty to 12-20 [facility] adverse 00:00: st reaction 00 s to drug Penicill Propensi Active Rash [place] ins ty to 12-20 [facility] adverse 00:00: st reaction 00 s to drug Piroxica Propensi Active Rash [place] m ty to 12-20 [facility] adverse 00:00: st reaction 00 s to drug Predniso Propensi Active Rash [place] ne ty to 12-20 [facility] adverse 00:00: st reaction 00 s to drug Prochlor Propensi Active Rash [place] perazine ty to 12-20 [facility] Edisylat adverse 00:00: st e reaction 00 s to drug Propoxyp Propensi Active Rash [place] hene ty to 12-20 [facility] N-Acetam adverse 00:00: st inophen reaction 00 s to drug Sulfa Propensi Active Rash [place] (Sulfona ty to 12-20 Methodi mide adverse 00:00: st Antibiot reaction 00 ics) s to drug Sulfacet Adverse Active Info Not [facility] amide Reaction Available [facility] - Sodium [facility] Quinidin Adverse Active Info Not [facility] e Reaction Available [facility] - Sulfate [facility] Propoxyp Adverse Active Info Not [facility] hene HCl Reaction Available [facility] es - [facility] Meperidi Adverse Active Info Not [facility] ne HCl Reaction Available [facility] Iodine Adverse Active Info Not [facility] Reaction Available [facility] Guaifene Adverse Active Info Not [facility] sin Reaction Available [facility] Droperid Adverse Active Info Not [facility] ol Reaction Available [facility] PCN Adverse Active Info Not [facility] Reaction Available [facility] MORPHINE Adverse Active Info Not [facility] t Reaction Available [facility] Butorpha Adverse Active Info Not [facility] nol Reaction Available [facility] Tartrate [facility] Analgesi Adverse Active Info Not [facility] dye [facility]verse Active Info [facility] Reaction [facility] Ciproflo Adverse Active Info Not [facility] t xacin Reaction Available [facility] Family History Family Member Diagnosis Comments Start Date Stop Date Source Natural father Hypertension [place] Faith Natural father Prostatitis [facility] ethodist Natural mother COPD [facility] thodist Natural mother Heart disease [place] [facility] Natural sister Bladder Cancer [place] [facility] Natural sister Breast [facility] Social History Social Habit Start Date Stop Date Quantity Comments Source History [facility] Meth odist Alcohol Std Drinks History [facility] Meth odist Alcohol Binge Sex Assigned At [facility] ethodist Tobacco use and 2020-03-03 2020-03-03 Never used [facility] ethodist exposure 00:00:00 00:00:00 Alcohol intake 2020-03-03 2020-03-03 Lifetime [facility] thodist 00:00:00 00:00:00 non-drinker (finding) History [facility] 2019-06-02 2019-06-02 1 [place] Meth odist Alcohol Frequency 00:00:00 00:00:00 Smoking Status Start Date Stop Date Source Never smoker [place] Methodis t Medications Ordered Filled Start Stop Current Ordering Indication Dosage Frequency Signature Comments Components Source Medication Medication Date Date Medication? Clinician (SIG) Name Name DAPTOMYCIN 500mg QD Infuse 500 [place] IV 6-18 06-18 mg into a Methodi 12:15: 00:[address] 19 :00 catheter daily. zolpidem Yes 10mg QD Take 10 mg Carmela ston (AMBIEN) 10 9-11 by mouth Meth shayne mg tablet 00:00: nightly as st 00 needed. ondansetron 2018- Yes 4mg Q12H Take 4 mg [place] (ZOFRAN) 4 9-10 by mouth Metho di MG tablet 00:00: every 12 st 00 (twelve) hours as needed. levothyroxi 2019-0 Yes 100ug QD Take 100 [place] ne 05-18 mcg by Methodi (SYNTHROID, 00:00: mouth st LEVOXYL) 00 every 100 mcg morning. tablet BANOPHEN 50 Yes Q.5D 2 (two) Carmela ston mg capsule - times a Method i 00:00: day. st 00 RABEprazole Yes 20mg QD Take 20 mg Severino (ACIPHEX) 05-10 by mouth Method i 20 mg EC 00:00: daily. st tablet 00 propranolol Yes QD every [place] (INDERAL) 04-19 morning. Method i 80 MG 00:00: st tablet 00 acetaminoph 2020- No TAKE 1 Carmela ston en-codeine 04-18 TABLET BY Met us (TYLENOL 00:00: 00:[address] WITH 00 :00 HOUR CODEINE #4) BEFORE 300-60 mg DRESSING per tablet CHANGE nitroglycer Yes APPLLY 1 Mike pascual in 04-03 PATCH [facility]i (NITRODUR) 00:00: DAILY st 0.4 mg/hr 00 furosemide Yes QD every [place] (LASIX) 20 04-01 morning. Metho di mg tablet 00:00: st 00 meclizine Yes as needed. Mike pascual (ANTIVERT) 03-31 [facility] 25 mg 00:00: st tablet 00 Benadryl Benadryl Yes Shanta [address] [facility] Allergy 03-30 [facility] as needed Alanis es - 00:00: Memoria 00 l Outpati ent Clinics lisinopril Yes 10mg QD Take 10 mg [place] (PRINIVIL,Z 03-26 by mouth Meth shayne ESTRIL) 10 00:00: nightly. st mg tablet 00 busPIRone Yes 5mg QD Take 5 mg Carmela ston (BUSPAR) 5 03-16 by mouth Metho di MG tablet 00:00: every st 00 morning. triamcinolo 2020- No Q.5D 2 (two) Ho [place] ne 03-16 06-18 times a Methodi (KENALOG) 00:00: 00:[address] 0.1 % cream 00 :00 fluticasone Yes as needed. Severino propionate 03-14 [facility]i (FLONASE) 00:00: st 50 00 mcg/actuati on nasal spray diazePAM 2018- Yes QD every Severino (VALIUM) 10 03-11 morning. Meth shayne MG tablet 00:00: st 00 promethazin Yes as needed. Severino e 03-10 [facility] (PHENERGAN) 00:00: st 25 MG 00 tablet acetaminoph 2020- No 1{tbl} Q4H Take 1 [place] en-codeine 03-10 tablet by Met us (TYLENOL 00:00: 00:[address] WITH 00 :00 every 4 CODEINE #3) (four) 300-30 mg hours as per tablet needed. mupirocin 2019- No APPLY TO Carmela berry (BACTROBAN) 03-03 AFFECTED Met us 2 % 00:00: 00:[address] ointment 00 :00 TIMES A DAY FOR 7 DAYS dexlansopra 2016-0 Yes QD every [place] zole 12-10 morning. Methodi (DEXILANT) 00:00: st 60 mg 00 capsule potassium 0 Yes Q.5D 2 (two) [place] chloride 3-16 times a Methodi (KLOR-CON 00:00: day. st SPRINKLE) 00 10 MEQ CR capsule Lasix Lasix Yes Shanta [address] [facility] [facility] Propranolol Propranolol Yes Shanta [address] HCl HCl [facility] BusPIRone BusPIRone Yes Shanta [address] [facility] Levothyroxi Levothyroxi Yes Shanta [address] ne Sodium ne Sodium [place] on an Alanis es - empty Memoria stomach in l the Outpati morning ent Clinics Lisinopril Lisinopril Yes Shanta [address] [facility] [facility] Valium Valium Yes Shanta [address] [facility] as needed [facility] Dexilant Dexilant Yes Shanta [address] [facility] K-Tab K-Tab Yes Shanta [address] [facility] with food [facility] Furosemide Furosemide Yes Shanta TAKE [address] [facility] [facility] TABLET BY [facility] - M[facility]TH [facility] TWICE A l DAY FOR [facility] Rabeprazole Rabeprazole Yes Shanta TAKE [address] Sodium Sodium [facility] TABLET BY [facility]TH [facility] EVERY DAY l [facility] Duloxetine Duloxetine Yes Shanta TAKE ONE [facility] HCl HCl [facility] CAPSULE BY [facility] - [facility]TH [facility] EVERY DAY l [facility] ent Clinics Creon Creon Shanta as [facility] 08-19 [facility] directed [facility] - 00:00 [facility] :00 [facility] Vital Signs Vital Name Observation Time Observation Value Comments Source Systolic blood 2020-03-03 12:30:00 106 mm[Hg] Emmanuelto n Faith pressure Diastolic blood 2020-03-03 12:30:00 59 mm[Hg] Pedro on Faith pressure Heart rate 2020-03-03 12:30:00 69 /min Maycol Lin Respiratory rate 2020-03-03 12:30:00 16 /min Emmanuel Lin Oxygen saturation in 2020-03-03 12:30:00 97 /min Maycol Lin Arterial blood by Pulse oximetry Body temperature 2020-03-03 11:40:00 36.06 Aurelia Emmanuel Lin Body height 2020-03-03 07:22:00 162.6 cm Maycol Lin Body weight 2020-03-03 07:22:00 64.774 kg Maycol Lin BMI 2020-03-03 07:22:00 24.51 kg/m2 Maycol Lin Procedures Procedure Date / Time Performing Clinician Source Performed [place] AN ELECTIVE 2020-03-03 08:14:30 Tyler Panchal Met alisonist ENDOTRACHEAL AIRWAY [place] REVISION, RECONSTRUCTION, 2020-03-03 07:41:00 Vangie Agudelo BREAST Anastasiya ECG 12-LEAD 2020-02-29 11:27:32 Vangie Agudelo Me thodist Anastasiya COVID-19 QUALITATIVE PCR 2020-02-29 10:58:00 Vangie Agudelo PARTIAL THROMBOPLASTIN 2020-02-29 10:58:00 Vangie Agudelo TIME (PTT) Anastasiya PROTHROMBIN TIME WITH INR 2020-02-29 10:58:00 Vangie Agudelo Anastasiya COMPREHENSIVE METABOLIC 2020-02-29 10:58:00 Vangie Agudelo ankur Faith PANEL Anastasiya HC COMPLETE BLD COUNT 2020-02-29 10:58:00 Vangie Agudleo W/AUTO DIFF Anastasiya ESTIMATED GFR 2020-02-29 10:58:00 Vangie Agudelo Pa thodist Anastasiya US BREAST COMPLETE 2020-01-25 11:21:31 Vangie Agudelo BILATERAL Anastasiya Plan of Care Planned Activity Planned Date Details Comments Source Future Scheduled 2022-01-24 BREAST CANCER [facility] thodist Test 00:00:00 SCREENING [code = BREAST CANCER SCREENING] Future Scheduled 2020-04-09 INFLUENZA VACCINE Toro rebollar Faith Test 00:00:00 [code = INFLUENZA VACCINE] Future Scheduled 2020-01-29 65+ PNEUMOCOCCAL [place] Faith Test 00:00:00 VACCINE (1 of 1 - PPSV23) [code = 65+ PNEUMOCOCCAL VACCINE (1 of 1 - PPSV23)] Future Scheduled 2005 COLONOSCOPY SCREENING Ho ankur Faith Test 00:00:00 [code = COLONOSCOPY SCREENING] Future Scheduled 2005 SHINGLES VACCINES (#1) H maxine Faith Test 00:00:00 [code = SHINGLES VACCINES (#1)] Future Scheduled 1976-01-29 Screening for [facility] thodist Test 00:00:00 malignant neoplasm of cervix (procedure) [code = 391603676] Future Scheduled 1971 COVID-19 VACCINE (#1) Ho ankur Faith Test 00:00:00 [code = COVID-19 VACCINE (#1)] Encounters Start End Encounter Admission Attending Care Care Encounter Source Date/Time Date/Time Type Type Clinicians Facility Department ID 2020-05-03 Outpatient [facility] [id number] MH 08:19:[address] [facility] 2020-02-09 Outpatient MHSE MHSE [id number] MH 12:29:[address] [facility] 2020-08-02 2020-08-02 [facility] [id number] [facility] 00:00:00 00:00:00 [facility] Out[facility] ent Clinics 2020-07-28 2020-07-28 Outpatient [facility] [id number] [facility]00 [facility] l Outpati ent Clinics 2020-04-27 2020-04-27 [facility] [id number] 10:20:00 10:20:00 [facility] l Medicine Outpati ent Clinics 2020-03-03 2020-03-03 Outpatient [place]ANDRO [place] [id number] [place] 00:00:00 00:00:[address] [facility] 2020-02-29 2020-02-29 Outpatient ALEJANDRO, [facility] [id number] [place] 00:00:00 00:00:[address] [facility] 2020 2020 [facility] [id number] 13:00:00 13:00:00 [facility] Medicine Outpati ent Clinics 2020-01-26 2020-01-26 [facility] [id number] 15:09:00 15:09:00 [facility] Medicine Outpati ent Clinics 2020-01-25 2020-01-25 Outpatient ALEJANDRO [facility] [id number] [place] 00:00:00 00:00:[address] [facility] 2019-12-28 2019-12-28 [facility] [id number] 13:00:00 13:00:00 [facility] Medicine Medicine Outpati ent Clinics 2019-09-28 2019-09-28 [facility] [id number] 16:00:00 16:00:00 [facility] Medicine l Medicine Outpati ent Clinics 2019-08-14 2019-08-14 [facility] [id number] 13:22:00 13:22:00 [facility] l Medicine Outpati ent Clinics 2019-07-30 2019-07-30 [facility] [id number] 08:57:00 08:57:00 t [facility] Outpati ent Clinics 2019-06-25 2019-06-25 [facility] [id number] 08:40:00 08:40:00 t [facility] Outpati ent Clinics 2019-05-14 2019-05-14 [facility] [id number] 09:07:00 09:07:00 t Specialty/U Annamaria kes - Specialty rology [facility] a /Urology Clinic l Clinic Outpati ent Clinics 2019-05-12 2019-05-12 [facility] [id number] 08:10:00 08:10:00 t Specialty/U Annamaria kes - Specialty rology Memori a /Urology Clinic l Clinic Outpati ent Clinics 2019-05-12 2019-05-12 [facility] [id number] 08:06:00 08:06:00 t Specialty/U Annamaria kes - Specialty rology Memori a /Urology Clinic l Clinic Outpati ent Clinics 2019-04-20 2019-04-20 [facility] [id number] 10:21:00 10:21:00 t Specialty/U Annamaria kes - Specialty rology Memori a /Urology Clinic l Clinic Outpati ent Clinics 2019-04-13 2019-04-13 [facility] [id number] 09:49:00 09:49:00 t Specialty/U Annamaria kes - Specialty rology Memori a /Urology Clinic l Clinic Outpati ent Clinics 2019-04-07 2019-04-07 [facility] [id number] 10:00:00 10:00:00 t Specialty/U Annamaria kes - Specialty rology Memori a /Urology Clinic l Clinic Outpati ent Clinics 2019-04-01 2019-04-01 [facility] [id number] 17:17:00 17:17:00 [facility] Outpati ent Clinics 2019-03-30 2019-03-30 [place] [id number] 14:00:00 14:00:00 [facility] Outpati ent [facility] 2019-03-30 2019-03-30 Outpatient [facility] [place] [id number] 09:29:00 09:29:00 t Specialty/U Annamaria stubbs - Specialty rology [facility] a [facility]Urology Clinic [facility] 2019-03-25 2019-03-25 Outpatient Topher [place] [id number] 11:00:00 11:00:00 t [facility] ent [facility] 2019-02-06 2019-02-06 Outpatient MHBL MHBL [id number] MHBL 05:11:00 05:11:00 Results Test Test Test Results Result Source Description Time Comments Comments Airway 2020-02- Tyler Panchal [place] 25 HESHAM 03/03/2020 8:15 Faith 08:14:30 AMAirwayDate/Time: 03/03/2020 7:52 AMPerformed by: Tyler Panchal CRNAAuthorized by: Negro Balderas MD Location: ORUrgency[facility] Air[facility]: No Resident/SPINDLE MAKER/AA: Tyler Panchal CRNAPerformed by: resident/SPINDLE MAKER/AAPreoxygen ated with 100% O2: Yes C-spine Precautions Maintained Throughout: Yes Mask Ventilation: Easy maskFinal Airway Type: Endotracheal airwayFinal Endotracheal Airway: ETTCuffed: Yes Technique Used: Direct laryngoscopyDevices/Metho ds Used in Placement: Intubating styletInsertion Site: OralBlade Type: MacintoshLaryngoscope Blade/Videolaryngoscope Blade Size: 3ETT Size (mm): 7.0Cuff at minimum occlusion pressure: Yes Measured from: LipsETT to Lips (cm): 20Placement Verified by: CO2 detection, direct visualization and equal breath sounds Laryngoscopic view: Grade I - full view of glottisNumber of Attempts at Approach: 1 COVID-19 qualitative PCR 2020-03-01 12:27:16 Test Item Value Reference Range Interpretation Comme nts Interpretation (test code = Negative results do not 8233533) preclude 2019-nCoV infection and should not be used as the sole basis for treatment or other patient management decisions. Negative results must be combined with clinical observations, patient history, and epidemiological information. COVID-19 qualitative PCR Not-Detected Not-Detected result (test code = 26991-5) COVID-19 qualitative PCR See link below for PDF Lab Case Number: (test code = 7070) Report [id number] Maycol MethodistECG 12 [id number] 16:46:36 Test Item Value Reference Range Interpretation Comments Ventricular rate (test 57 code = 253) Atrial rate (test code 114 = 255) [place] interval (test code 170 = 266) QRSD interval (test 86 code = 260) QT interval (test code 462 = 264) QTC interval (test code 449 = 265) P axis 1 (test code = 59 267) QRS axis 1 (test code = -23 268) T wave axis (test code 13 = 270) EKG impression (test Sinus tachycardia with code = 273) 2nd degree AV block with 2:1 AV conduction-Abnormal ECG-In automated comparison with ECG of 02-JUN-2019 09:21,-Sinus rhythm is now with 2nd degree AV block- Severino MethodistComprehensive metabolic [id number] 12:21:23 Test Item Value Reference Range Interpretation Comments Sodium (test code = 144 135- 148 mEq/L 2951-2) Potassium (test code = 3.5 3.5- 5.0 mEq/L 2823-3) Chloride (test code = 101 98- 112 mEq/L 2075-0) CO2 (test code = 31 24- 31 mEq/L 8-9) Anion gap (test code = 12@ANIO 7- 15 mEq/L 65444-0) BUN (test code = 14 mg/dL 8-23 3094-0) Creatinine (test code = 0.80 mg/dL 0.5-0.9 2160-0) Glucose (test code = 94 mg/dL 65-99 2345-7) Calcium (test code = 9.6 mg/dL 8.8-10.2 24029-2) Protein (test code = 7.6 g/dL 6.3-8.3 -[place] n 2885-2) 4.6-7.0 g/ dL1 week 4.4-7.6 g/dL7 months-1year 5.1-7.3 g/dL1 -2 years 5.6-7.5 g/dL>3 years 6.0-8.0 g/dL18- 150 6.3-8.3 g/dL Albumin (test code = 4.6 g/dL 3.5-5 1751-7) A/G ratio (test code = 1.5 0.7-3.8 1759-0) Alkaline phosphatase 104 U/L 35-104 (test code = 6768-6) AST (test code = 23 U/L 10-35 1920-8) ALT (test code = 13 U/L 5-50 1742-6) Total bilirubin (test 0.5 mg/dL 0-1.2 code = 1975-2) Maycol MethodistEstimated [id number] 12:21:23 Test Item Value Reference Range Interpretation Comments Estimated GFR (test 77 mL/min/1.73 m2 [facility] Units code = 5488) InterpretationG 1 >=90 Normal or highG2 60-89 Mildly zwsebvqjgN3u 45-59 Mildly to mode rately otxagirctV6g 30-44 Moderately to severely decreasedG4 15-29 Severely decre asedG5 <15 Kidn ey failureThe eGFR was calculated usin g the Chronic Kidney Disease Epidemiology Co llaboration (CKD-EPI) equat ion. Interpretation is based on recommendations of the National Kidney Foundation-Kidn ey Disease Outcomes Qualit y Initiative (NKF-KDOQI) pub lished in 2014. Maycol MethodistProthrombin time with [id number] 12:13:09 Test Item Value Reference Range Interpretation Comments Prothrombin time (test 13.4 11.5- 14.5 sec code = 5902-2) INR (test code = 1.0 The Interna tional 21410-6) Normalized Rati o (INR) is a therapeutic m onitoring tool for patien ts who are stable on oral anticoagulant t herapy. An INR of 2.0-3.0 is suggested for d eep vein thrombosis/pulm onary embolism. Maycol MethodistPartial thromboplastin time, [id number] 12:13:09 Test Item Value Reference Range Interpretation Comments PTT (test code = 42.1 23.0- 36.0 sec H PTT thera peutic range 00262-8) for unfractiona en heparin is61.0- 112.0 seconds which corresponds to Anti-Xa0.3-0.7 U/ml. Lab Interpretation Abnormal (test code = 19763-9) Maycol MethodistCBC with platelet and [id number] 12:09:32 Test Item Value Reference Range Interpretation Comments WBC (test code = 82994-1) 5.40 4.50- 11.00 k/uL RBC (test code = 30599-2) 4.87 m/uL 4.2-5.5 HGB (test code = 718-7) 12.3 g/dL 12-16 HCT (test code = 4544-3) 40.0 % 37-47 MCV (test code = 787-2) 82.1 fL 82-100 MCH (test code = 785-6) 25.3 pg 27-34 L MCHC (test code = 786-4) 30.8 g/dL 31-37 L RDW - SD (test code = 69887-8) 41.5 fL 37-55 MPV (test code = 35125-7) 11.0 fL 8.8-13.2 Platelet count (test code = 283 150- 400 k/uL 77556-8) Nucleated RBC (test code = 0.00 /100 WBC 68951-1) Neutrophils (test code = 18673-4) 62.0 % 39-69 Lymphocytes (test code = 74556-8) 30.0 % 25-45 Monocytes (test code = 28289-2) 6.3 % 0-10 Eosinophils (test code = 22054-3) 1.3 % 0-5 Basophils (test code = 99374-6) 0.2 % 0-1 Lab Interpretation (test code = Abnormal 89897-4) Maycol LinUS Breast Complete [id number] 11:37:40PROCEDURE: US BREAST COMPLETE BILATERALBilateral real-time chest wall ultrasound included all four quadrants regions under close supervision by the radiologist. 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 COMPARISON: None available. FINDINGS: Bilateral reconstructed changes are noted in both breasts. No underlyingfluid collection is identified. IMPRESSION: No suspicious finding in both mastectomy beds. RECOMMENDATION: Clinical follow-up is recommended. Findings and recommendations were discussed with the patient. BI- RADS 1: NEGATIVE [id number] Faith- NM ABSCESS LOC COMP [id number] 11:11:00 FAX: Alicia Mejia MD [phone] [place]: St: DEP Name: JUAN F SHEIKH [facility] : 1955 Age/S: 64/F [address] [place] [address] Unit#: [id number] Loc: [place] [address] Phys: Alicia Mejia MD Acct: [id number] Dis Date: Status: DEP CLI PHONE #: [phone] Exam Date: 07/21/2019 1330 FAX #: [phone] Reason: L02.91, CUTANEOUS ABSCESS. EXAMS: CPT CODE: [id number] NM ABSCESS LOC COMP BODY 06363 WHOLE BODY INDIUM SCAN: HISTORY: Multiple cutaneous [...] SL:01 at 1111 Reported and signed by: Umm Jones M.D. CC: Alicia Mejia MD Technologist: Aurelia Marmolejo [facility]; ..Darrick Trnscrd Date/Time/By: 07/22/2019 (1111) : By: Ranulfo/HJHOrig Print D/T: S: 07/22/2019 (0752) PAGE 1 Signed Report- XR SHOULDER 1 V [id number] 11:08:00 FAX: Alicia Mejia MD [phone] [place]: St: REG Name: JUAN F SHEIKH [facility] : 1955 Age/S: 64/F [address] [place] [address] Unit#: [id number] Loc: [place] [address] Phys: Alicia Mejia MD Acct: [id number] Dis Date: Status: REG [facility] PHONE #: [phone] Exam Date: 04/16/2019 1059 FAX #: [phone] Reason: PICC PLACEMENT EXAMS: CPT CODE: [id number] XR SHOULDER 1 V RT 28715 Study: - XR SHOULDER 1 V RT 04/16/2019 10:47 AM Patient Name: JUAN F SHEIKH MR: [id number] : 1955; Age: 64 years y/o Female Ordering Physician: Alicia Mejia MD Clinical Indication: PICC PLACEMENT Comparison: None RIGHT SHOULDER, 1 view: No acute fracture, dislocation, or suspicious focal osseous lesion. Right PICC line tip overlies the superior vena cava. The soft tissues are normal. Impression: Right PICC line tip overlies the superior vena cava. SL: [id number] at 1108 Reported and signed by: Ricco Moe M.D. CC: Alicia Mejia MD Technologist: RT Jero(R) Trnscrd Date/Time/By: 04/16/2019 (1108) : By: [email or web address] Orig Print D/T: S: 04/16/2019 (1111) PAGE 1 Signed Report
--- OUTSIDE RECORDS SUMMARY | 2020-08-25 11:56 | XMS REPORT ---
:1955 Author Organization [facility] Address 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 Active 59607083 Problem Lymphadenopathy R59.1 Active 27262180 Problem Generalized R10.84 Active 235457582 abdominal pain Problem GERD without K21.9 Active 708400671 esophagitis Problem Vasculitis I77.6 Active 79514860 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 5665462 ligament syndrome Problem 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 Active 62914036 ischemia Problem Wound check, Z51.89 Active 921273677 abscess Problem History of Z85.850 Active 027556957 thyroid cancer Problem Postoperative E89.0 Active 48327842 hypothyroidism Problem Fullness of N64.89 Active 74801366 breast Problem Anxiety about F41.8 Active 387237688 health Problem Irritable bowel K58.1 Active 832180442 syndrome with constipation Problem Diarrhea, R19.7 Active 37902066 unspecified type Problem History of Z87.19 Active 53705618640044486 Mcfarland's esophagus Problem Depression, F32.9 Active 06833749 unspecified depression type ALLERGIES Allergen (clinical drug Drug/Non Drug Allergy Reaction Allergy Type Onset Date Status ingredient) documented on EMR IVP dye Unknown Drug Allergy Active Propoxyphene HCl Unknown Drug Allergy Active Ciprofloxacin Unknown Drug Allergy Active Analgesic Unknown Drug Allergy Active Sulfa Unknown Drug Allergy Active quinidine Quinidine Sulfate([facility] Unknown Drug Allergy A ctive Code:[address]-06) Guaifenesin Unknown Drug Allergy Active droperidol Droperidol([facility] Unknown Drug Allergy Active Code:[address]-06) butorphanol Butorphanol Unknown Drug Allergy Active Tartrate([facility] Code:[address]-00) meperidine Meperidine HCl([facility] Unknown Drug Allergy Acti ve Code:[address]-11) PCN Unknown Drug Allergy Active morphine MORPHINE Unknown Drug Allergy Active sulfacetamide Sulfacetamide Unknown Drug Allergy Active Sodium([facility] Code:[address]-42) Iodine([facility] Unknown Drug Allergy Active Code:09868-51520) ENCOUNTERS from 1955 to 2020-08-02 Encounter Location Date Provider Diagnosis [facility] [address] Jul, Shanta kirk [facility] [place] [address] IMMUNIZATIONS No Information SOCIAL HISTORY Tobacco Use: Social History Observation Description Date Details (start date - stop date) Never Smoker Sex Assigned At : Social History Observation Description Sex Assigned At Unknown PHQ9 Question Answer Notes Little interest or pleasure in doing things Several days Feeling down, depressed, or hopeless More than half the days Trouble falling or staying asleep or sleeping too much More than half the days Feeling tired or having little energy More than half the day s Poor appetite or overeating More than half the days Feeling bad about yourself, or that you are a failure, More than half the days or have let yourself or your family down Trouble concentrating on things, such as reading the More th an half the days newspaper or watching television Moving or speaking so slowly that other people could Several days have noticed; or the opposite, being so fidgety or restless that you have been moving around a lot more than usual Total Score 14 Interpretation Moderate Depression Thoughts that you would be better off or of Not at all hurting yourself in some way Alcohol Screen Question Answer Notes Did you have a drink containing alcohol in the past year? Ye s Points 0 Interpretation Negative Tobacco Use/Smoking Question Answer Notes Are you a never smoker REASON FOR REFERRAL No Information VITAL SIGNS No information MEDICATIONS Medication SIG (Take, Route, Notes Start Date End Date Status Frequency, Duration) Lisinopril 10 MG 1 tablet Orally Once a Not-Taking day BusPIRone HCl 10 MG 1 tablet Orally Three Active times a day for 30 days K-Tab 10 MEQ 2 tablets with food Act anurag Orally Twice a day for 30 Levothyroxine Sodium 100 1 tablet on an empty Active MCG stomach in the morning Orally Once a day for 30 day(s) Benadryl Allergy 25 MG 2 tablet as needed Mar, Active Orally every 12 hrs for 30 days Creon [address] UNIT as directed Orally 2 Active pills with breakfast, lunch and dinner. 1 pill with each snack for 30 Duloxetine HCl 30 MG TAKE ONE CAPSULE BY Active MOUTH EVERY DAY for 90 Dexilant 60 MG 1 capsule Orally Once Active a day for 90 days Valium 10 MG 1 tablet as needed bid Active Orally TID for 30 days Lasix 20 MG 1 tablet Orally Twice Ac tive a day Rabeprazole Sodium 20 MG TAKE 1 TABLET BY MOUTH Active EVERY DAY Furosemide 20 MG TAKE 1 TABLET BY MOUTH Active TWICE A DAY FOR DIURETIC for 90 Propranolol HCl 80 MG TAKE 1 TABLET BY MOUTH Active TWICE A DAY FOR HYPERTENSION for 90 PROCEDURES No Information RESULTS No Results REASON FOR VISIT BP machine MEDICAL (GENERAL) HISTORY Type Description Date Medical History Diarrhea, unspecified type Medical History Fullness of breast Medical History Lymphadenopathy Medical History Generalized abdominal pain Medical History Dumping syndrome Medical History Vasculitis Medical History Mesenteric ischemia Medical History Median arcuate ligament syndrome Medical History History of stroke Medical History Benign hypertension Medical History GERD without esophagitis Medical History Depression, unspecified depression type Medical History History of thyroid cancer Medical History History of breast cancer Medical History History of Mcfarland's esophagus Medical History Irritable bowel syndrome with constipati on Surgical History Thyroidectomy Total mass around Trachea 2013 Surgical History Double Mastectomy - Left Breast Cancer 1 995 Surgical History Mcfarland's Esophagitis Surgical History Twisted/blocked Colon colectomy 95% nathan liz 2014 Surgical History Breast Reconstruction w/ lift 11/11/2018 Surgical History removal of breast implants Surgical History D & C Surgical History Hysterectomy Surgical History Cholecystectomy Surgical History Umbilical hernia repair Surgical History L4-L5 distectomy Hospitalization History numerous Goals Section No Information Health Concerns No Information MEDICAL EQUIPMENT No Information MENTAL STATUS No Information FUNCTIONAL STATUS No Information ASSESSMENTS No Information PLAN OF TREATMENT Medication Medication Name Sig Start Date Stop Date Valium 10 MG 1 tablet as needed bid Orally TID for 30 days Next Appt Details Provider Name:Shanta Mackay, 2020-10-28 10 :20:00 AM, [address], [address], [place], [address], Insurance Providers Payer Name Payer Address Payer Insured Patient Coverage Cover age Phone Name Relationship to Start Date End Date Insured MEDICARE Attn Part B [id number] Alondra Sheikh [address] [facility] Claims [address] [facility] [id number]
--- OUTSIDE RECORDS SUMMARY | 2020-08-25 11:56 | XMS REPORT ---
:1955 Author Organization [facility] Address 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 83367923 Problem Lymphadenopathy R59.1 Active 24669911 Problem Generalized R10.84 Active 327314453 abdominal pain Problem GERD without K21.9 Active 848609497 esophagitis Problem Vasculitis I77.6 Active 48465819 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 0030035 ligament syndrome Problem 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 Active 70835613 ischemia Problem Wound check, Z51.89 Active 529873833 abscess Problem History of Z85.850 Active 869052746 thyroid cancer Problem Postoperative E89.0 Active 23947868 hypothyroidism Problem Fullness of N64.89 Active 41285166 breast Problem Anxiety about F41.8 Active 047748961 health Problem Irritable bowel K58.1 Active 723586354 syndrome with constipation Problem Diarrhea, R19.7 Active 09378192 unspecified type Problem History of Z87.19 Active 22546724706928789 Mcfarland's esophagus Problem Depression, F32.9 Active 93186408 unspecified depression type ALLERGIES Allergen (clinical drug Drug/Non Drug Allergy Reaction Allergy Type Onset Date Status ingredient) documented on EMR IVP dye Unknown Drug Allergy Active Propoxyphene HCl Unknown Drug Allergy Active Ciprofloxacin Unknown Drug Allergy Active Analgesic Unknown Drug Allergy Active Sulfa Unknown Drug Allergy Active quinidine Quinidine Sulfate([facility] Unknown Drug Allergy A ctive Code:[address]-80) Guaifenesin Unknown Drug Allergy Active droperidol Droperidol([facility] Unknown Drug Allergy Active Code:[address]-49) butorphanol Butorphanol Unknown Drug Allergy Active Tartrate([facility] Code:[address]-05) meperidine Meperidine HCl([facility] Unknown Drug Allergy Acti ve Code:[address]-11) PCN Unknown Drug Allergy Active morphine MORPHINE Unknown Drug Allergy Active sulfacetamide Sulfacetamide Unknown Drug Allergy Active Sodium([facility] Code:[address]-54) Iodine([facility] Unknown Drug Allergy Active Code:45535-85717) ENCOUNTERS from 1955 to 2020-08-07 Encounter Location Date Provider Diagnosis [facility] [address] [facility] Jul, Shanta Mackay GERD without Family Medicine [address] [facility] [address] ; [place] [address] Depression, un specified depression type F32.9 ; Postoperative hypothyroidism E89.0 and Anxiety abo [facility] F41.8 IMMUNIZATIONS No Information SOCIAL HISTORY Tobacco Use: [...] REASON FOR REFERRAL No Information VITAL SIGNS Height 64 in Jul, Weight 143.6 lbs Jul, Temperature 98.0 degrees Fahrenheit Jul, BMI 24.65 kg/m2 Jul, Oximetry 98 % Jul, Respiratory Rate 16 /min Jul, Blood pressure systolic 120 mm Hg Jul, Blood pressure diastolic 59 mm Hg Jul, MEDICATIONS Medication SIG (Take, Route, Notes Start [...] every 12 hrs for 30 days Creon 48[address] UNIT as directed Orally 2 Active pills [...] Information RESULTS No Results REASON FOR VISIT 3 month f/u ([phone]) MEDICAL (GENERAL) HISTORY Type Description Date Medical [...] No Information FUNCTIONAL STATUS No Information ASSESSMENTS Encounter Date Diagnosis Assessment Notes Treatment Notes Treatm ent Clinical Notes Jul, GERD without med as directed esophagitis (ICD-10 - K21.9) Jul, Depression, med as directed unspecified get outside depression type daily (ICD-10 - F32.9) Jul, Postoperative med as directed hypothyroidism (ICD-10 - E89.0) Jul, Anxiety about health med as dire cted (ICD-10 - F41.8) begin weaning process to 1 tab BID PLAN OF TREATMENT Medication Medication Name Sig Start Date Stop Date Valium 10 MG 1 tablet as needed bid Orally TID for 30 days Treatment Notes Assessment Notes Clinical Notes GERD without esophagitis med as directed Depression, unspecified depression med as directedget outsid e daily type Postoperative hypothyroidism med as directed Anxiety about health med as directedbegin weaning process to 1 tab BID Next Appt Details 3 Months Reason: Provider Name:Shanta Mackay, 2020-10-28 10 :20:00 AM, [address] [facility], [address], [place], [address], Insurance Providers Payer Name Payer Address Payer Insured Patient Coverage Cover age Phone Name Relationship to Start Date End Date Insured MEDICARE Attn Part B [id number] SheikhAlondra self 2004 [employer] Claims [address] y[address] [place] [address]
[2020-08-25] MEDS ORDERED: Ringers Lactate 1,000 ML IV ONE (12:05)
[2020-08-25] MEDS ORDERED: propofoL 200 MG/20 ML VIAL IV ONE (12:39)
[2020-08-25] MEDS ORDERED: LIDOCAINE 2% MPF 5 ML VIAL ONE (12:39)
[2020-08-25] MEDS ORDERED: FENTANYL CITR 100 MCG/2 ML ONE ×2 (12:39→13:33)
[2020-08-25] MEDS ORDERED: MIDAZOLAM HCL 2 MG/2 ML INJ ONE (12:39)
[2020-08-25] MEDS ORDERED: NA CIT/CITRIC AC 30 ML ORAL UDC ONE (13:09)
[2020-08-25] MEDS ORDERED: DIAZEPAM 5 MG TABLET ONE (13:09)
[2020-08-25 13:10] LABS: Potassium 3.3 mmol/L (3.5-5.1)
[2020-08-25] MEDS ORDERED: BUPIVACAINE 0.25% PF 30 ML VIAL ONE (13:40)
[2020-08-25] MEDS ORDERED: VANCOMYCIN 1 GM/VIAL ONE (14:12)
[2020-08-25] MEDS ORDERED: NA CHLORIDE 0.9% 100 ML IV ONE (14:13)
[2020-08-25] MEDS ORDERED: dexAMETHasone 10 MG/ML VIAL ONE (14:37)
--- NOTE | 2020-08-25 14:37 | P.OP ---
Preoperative diagnosis: Infected RIGHT Breast Wound with cellulitis Postoperative diagnosis: Infected RIGHT Breast Wound with cellulitis Primary procedure: Debridement of Infected RIGHT Breast Wound with cellulitis Anesthesia: GETA Estimated blood loss: <20cc Specimen: Debridement tissue, cultures Findings: Full thickness skin infection with superficial necrosis Complications: None Drain(s): Other (MARIPOSA) Transferred to: Recovery Room Condition: Good
[2020-08-25 15:07] VITALS: TEMP 97.8
[2020-08-25 15:23] VITALS: O2SAT 98
--- NOTE | 2020-08-25 15:45 | OP ---
Date of Procedure: 08/25/2020 Surgeon: Esau Galindo MD, Preoperative Diagnosis: Infected right breast wound with cellulitis. Postoperative Diagnosis: Infected right breast wound with cellulitis. Procedure: Debridement of infected right breast wound with cellulitis and small multiple skin absces ses. Anesthesia: General endotracheal. Estimated Blood Loss: Less than 20 mL. Specimen: Debridement of tissue and cultures from abscess portion of skin. Findings: Full-thickness skin infection with superficial necrosis extending down to subcutaneous fat . Complications: None. Drains: MARIPOSA negative pressure wound therapy was placed over the wound. Disposition: The patient was transferred to recovery room in good condition. Procedure In Detail: After informed consent was obtained, the patient was brought to the operating r oom, prepped and draped in the usual sterile fashion after adequate anesthesia achieved. A circumfer ential elliptical incision was made around the area of cellulitis with full-thickness skin changes an d necrosis to the superficial layers of the skin, nonresponsive to medical therapy. I dissected down through the subcutaneous tissues into the subcutaneous fat and performed a T-type incision down infe riorly as the patient had a chronic wound extending at this point consistent with a foreign body reac tion. I circumferentially removed tissue at this point as well down to the subcutaneous fat. I then sent the specimen off for pathologic examination. I copiously irrigated the wound, undermined very slightly using electrocautery circumferentially. Blood supply was very brisk in this area and contro lled with a combination of electrocautery and 3-0 Vicryl sutures with good hemostasis at this point. The area was copiously irrigated once again and the skin was then closed using a combination of inte rrupted 2-0 nylon sutures in a T-type position. The incision was approximately 6 cm x 4 cm and was c losed without tension. At this point, the MARIPOSA negative pressure wound therapy device was then place d over the top and applied properly with good function. The patient tolerated the procedure well wit hout evidence of complication and transferred to PACU in good condition. All counts were correct at the end of the case. GABY/MODL Voice ID: [id number] Report ID: [id number]
[2020-08-25] MEDS ORDERED: TRAMADOL HCL 50 MG TAB ONE (16:12)
[2020-08-25 16:41] VITALS: BP 144/72
== END 2020-08-25 16:43 | disposition home or self-care (01) ==
LOC: OR 11:45
PROVIDERS: ATTEND Surgery
PROC: 0HBT0ZZ Excision of Right Breast, Open Approach (ICD-10-PCS; principal; 2020-08-25 13:30)
DX: N61.1 Abscess of the breast and nipple (principal); Z20.828 Contact with and (suspected) exposure to other viral communicable diseases
CPT/HCPCS: 93005; 87070; 80048; 36415; 86900; 86850; 87205; 85610; 86901; 88304; 85730; 87077; 87186; 87176; 19120; U0002; J2704; J2250; J3010; J3370; J1100; J7120

== ENCOUNTER 2020-09-03 15:48 | Emergency (ER) | payer OTHER ==
--- OUTSIDE RECORDS SUMMARY | 2020-09-03 15:52 | XMS REPORT | Clinical Summary ---
:1955 Author Organization [facility] Address [address] [place] [address] Care Team Providers Name Role Phone Shanta Mackay COMPUTER SUPPORT TECHNICIAN-C Primary Care Provider Allergies Active Allergy Reactions [...] General Surgery Negro Balderas MD Ali, Faisal, MARINE STEWARD 03/03/2020 Surgery General Surgery Vangie Agudelo REVISIO [...] Dx); MD Anastasiya S/P mastectomy, bilateral after 09/03/2019 Surgical History Surgery Date Site/Laterality Comments HERNIA [...] Name Priority Date/Time Associated Diagnosis Comme nts MT AN ELECTIVE Routine 03/03/2020 8:14 Results f [...] the results S/P mastectomy, section. bilateral after 09/03/2019 Results Airway (03/03/2020 8:14 AM CDT) Narrative Performed At Tyler Panchal CRNA 2019 8:15 AM Airway Date/Time: 03/03/2020 7:52 AM Performed by: Tyler Panchal CR NA Authorized by: Negro Balderas MD Location: OR Urgency: Elective Difficult Airway: No Resident/MARINE STEWARD/AA: Tyler Panchal CRNA Performed by: resident/MARINE STEWARD/AA Preoxygenated with 100% O2: Yes C-spine Precautions [...] 12 lead (02/29/2020 11:27 AM CDT) Pathologist [facility] nature Ventricular rate 57 [facility] MUSE Atrial rate 114 [facility] MUSE MT interval 170 [facility] MUSE QRSD interval 86 [...] Organization Address City/State/ZIP Code Phon e Number [facility] MUSE [address] [place] [address] Estimated GFR (02/29/2020 10:58 AM CDT) Pathologist [facility] Estimated GFR 77 mL/min/1.73 [place] Comment: m2 CLEAR LOZADA Catergory Units Interpretation [...] e Number [facility] DEPARTMENT OF PATHOLOGY AND [address] [place] [address] GENOMIC MEDICINE [facility] [address] [place], [place] [address] [facility] COVID-19 qualitative PCR (02/29/2020 10:58 AM CDT) Pathologist [facility] Interpretation Negative results do not prec lude 2019-nCoV infection and should not be used as the sole basis for treatment or other patient management decisions. Negative results must be combined with clinical observations, patient history, and epidemiological [place] information. [facility] COVID-19 qualitative Not-Detected Not-Detecte [place] PCR result d [facility] COVID-19 qualitative See link below for [place] PCR PDF Lab [place] ReportComment: Case HOSPITAL Number: [id number] Specimen Nasopharyngeal Performing Organization Address City/[facility]/ZIP Code Phon e Number [facility] DEPARTMENT OF PATHOLOGY AND [address] [place], [place] [address] [facility]LE [address] [place] [address] [facility] Partial thromboplastin time, activated (02/29/2020 10:58 AM CDT) Pathologist [facility] PTT 42.1 (H) 23.0 - 36.0 [facility] Comment: [facility] PTT therapeutic range for unfractionated heparin is HOSPITAL 61.0-112.0 seconds which corresponds to Anti-Xa 0.3-0.7 U/ml. Specimen Blood Performing Organization Address [facility] Phon e Number [facility] DEPARTMENT OF PATHOLOGY AND [id number] [place] [address] Prothrombin time with INR (02/29/2020 10:58 AM CDT) [facility] Prothrombin time 13.4 11.5 - 14.5 [facility] INR 1.0 [place] Comment: [facility] International Normalized Ratio (INR) is a [employer] [facility] [employer] [facility] monitoring tool for patients who are stable on oral anticoagulant therapy. An INR of 2.0-3.0 is suggested for deep vein thrombosis/pulmonary embolism. Specimen Blood Performing Organization Address City/[facility] Phon e Number [facility] DEPARTMENT OF PATHOLOGY AND [address] [place] [id number] [facility] [id number] [place] [address] CBC with platelet and differential (02/29/2020 10:58 AM CDT) Pathologist [facility] nature WBC 5.40 4.50 - 11.00 k/uL [facility] RBC 4.87 4.20 - 5.50 m/uL [facility] HGB 12.3 12.0 - 16.0 g/dL [facility] HCT 40.0 37.0 - 47.0 % [facility] MCV 82.1 82.0 - 100.0 fL [facility] MCH 25.3 (L) 27.0 - 34.0 pg [facility] MCHC 30.8 (L) 31.0 - 37.0 g/dL [facility] RDW - SD 41.5 37.0 - 55.0 fL [facility] MPV 11.0 8.8 - 13.2 fL [facility] Platelet count 283 150 - 400 k/uL [facility] Nucleated RBC 0.00 /100 WBC [facility] Neutrophils 62.0 39.0 - 69.0 % [facility] Lymphocytes 30.0 25.0 - 45.0 % [facility] Monocytes 6.3 0.0 - 10.0 % [facility] Eosinophils 1.3 0.0 - 5.0 % [facility] Basophils 0.2 0.0 - 1.0 % [facility] Specimen Nasopharyngeal Performing Organization Address City/State/ZIP Code Phon e Number [facility] DEPARTMENT OF PATHOLOGY AND [address] [place] [address] GENOMIC MEDICINE [facility] [address] [place], [place] [address] [facility] Comprehensive metabolic panel (02/29/2020 10:58 AM CDT) Sodium 144 135 - 148 [facility] mEq/L [facility] Potassium 3.5 3.5 - 5.0 [facility] mEq/L [facility] Chloride 101 98 - 112 [facility] mEq/L [facility] CO2 31 24 - 31 mEq/L [facility] Anion gap 12@ANIO 7 - 15 mEq/L [facility] BUN 14 8 - 23 mg/dL [facility] Creatinine 0.80 0.50 - 0.90 [facility] mg/dL [facility] Glucose 94 65 - 99 mg/dL [facility] Calcium 9.6 8.8 - 10.2 [facility] mg/dL [facility] Protein 7.6 6.3 - 8.3 [facility] Comment: g/dL [facility] 4.6-7.0 g/dL 1 week 4.4-7.6 g/dL 7 months-1year 5.1-7.3 g/dL 1-2 years 5.6-7.5 g/dL >3 years 6.0-8.0 g/dL 18-150 6.3-8.3 g/dL Albumin 4.6 3.5 - 5.0 [facility] g/dL [facility] A/G ratio 1.5 0.7 - 3.8 [facility] Alkaline phosphatase 104 35 - 104 U/L [facility] AST 23 10 - 35 U/L [facility] ALT 13 5 - 50 U/L [facility] Total bilirubin 0.5 0.0 - 1.2 [facility] mg/dL [facility] Specimen Nasopharyngeal Performing Organization Address City/[facility] Phon e Number [facility] DEPARTMENT OF PATHOLOGY AND [address] [place] [address] GENOMIC MEDICINE [facility] [address] [place], [place] [address] [facility] US Breast Complete Bilateral (01/25/2020 11:21 AM CDT) Specimen Narrative Performed At PROCEDURE: US BREAST COMPLETE BILATERAL [facility] Bilateral real-time chest wall ultrasound included all four quadrants regions under close supervision by the r adiologist. INDICATION: 64-year-old female with a history of bilat eral mastectomies status post reconstruction with multiple infections pr esenting for evaluation for potential fluid collection prior to [facility] eduled reconstruction surgery in February. COMPARISON: None available. FINDINGS: Bilateral reconstructed changes are noted in both breasts. No underlying fluid collection is identi fied. IMPRESSION: No suspicious finding in b [facility] mastectomy beds. RECOMMENDATION: Clinical follow-up is re commended. Findings and recommendations were discus sed with the patient. BI-RADS 1: NEGATIVE [id number] Performing Organization Address City/State/ZIP Code Phon e Number [facility] [address] [place] [address] after 09/03/2019 Insurance Payer Benefit Plan / Subscriber ID Effective Dates Phone Addre ss Type Group MEDICARE MEDICARE PART A [id number] 2003-Present [facility] [place] B Advance Directives For more information, please contact: [phone] Type Date Recorded Patient Leadership Intern Explanati on Advance Directives, Living Will 06/03/2019 4:01 PM and Medical Power of Counselling Psychologist
--- OUTSIDE RECORDS SUMMARY | 2020-09-03 15:53 | XMS REPORT ---
:1955 Author Organization [facility] Address 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 56428113 Problem Lymphadenopathy R59.1 Active 23446544 Problem Generalized R10.84 Active 717038467 abdominal pain Problem GERD without K21.9 Active 730337226 esophagitis Problem Vasculitis I77.6 Active 92607119 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 31875077 ischemia Problem Wound check, Z51.89 Active 609345553 abscess Problem History of Z85.850 Active 152567582 thyroid cancer Problem Postoperative E89.0 Active 51912595 hypothyroidism Problem Fullness of N64.89 Active 89356905 breast Problem Anxiety about F41.8 Active 790638476 health Problem Irritable bowel K58.1 Active 201643598 syndrome with constipation Problem Diarrhea, R19.7 Active 64050291 unspecified type Problem History of Z87.19 Active [id number] Mcfarland's esophagus Problem Depression, F32.9 Active 62056218 unspecified depression type ALLERGIES Allergen (clinical drug Drug/Non Drug Allergy Reaction Allergy Type Onset Date Status ingredient) documented on EMR IVP dye Unknown Drug Allergy Active Propoxyphene HCl Unknown Drug Allergy Active Ciprofloxacin Unknown Drug Allergy Active Analgesic Unknown Drug Allergy Active Sulfa Unknown Drug Allergy Active quinidine Quinidine Sulfate([facility] Unknown Drug Allergy A ctive Code:[address]-78) Guaifenesin Unknown Drug Allergy Active droperidol Droperidol([facility] Unknown Drug Allergy Active Code:[address]-21) butorphanol Butorphanol Unknown Drug Allergy Active Tartrate([facility] Code:[address]-42) meperidine Meperidine HCl([facility] Unknown Drug Allergy Acti ve Code:[address]-56) PCN Unknown Drug Allergy Active morphine MORPHINE Unknown Drug Allergy Active sulfacetamide Sulfacetamide Unknown Drug Allergy Active Sodium([facility] Code:[address]-63) Iodine([facility] Unknown Drug Allergy Active Code:06123-23545) ENCOUNTERS from 1955 to 2020-08-31 Encounter Location Date Provider Diagnosis [facility] [address] Aug, [place] [address] IMMUNIZATIONS No Information SOCIAL HISTORY Tobacco Use: [...] every 12 hrs for 30 days Creon [id number] UNIT as directed Orally 2 Active pills [...] Information RESULTS No Results REASON FOR VISIT Other MEDICAL (GENERAL) HISTORY Type Description Date Medical [...] Name:Shanta Mackay, 2020-10-28 10 :20:00 AM, [address], [address], [place], [address], Insurance Providers Payer Name Payer Address Payer Insured Patient Coverage Cover age Phone Name Relationship to Start Date End Date Insured MEDICARE Attn Part B [id number] Alondra Sheikh 2004 [employer] [facility] Claims [address] [facility] [address]
--- OUTSIDE RECORDS SUMMARY | 2020-09-03 15:53 | XMS REPORT | Continuity of Care Document ---
:1955 Author Organization [facility] t Address [address] [place] [address] Care Team Providers Name Role Phone Payton Wilkins Primary Care Physician Anastasiya Agudelo MD Attending Clinician Marco Balderas MD Attending Clinician Margo DAHL Attending Clinician ALEJANDRO Admitting Clinician Unavailable Payers Payer Name Policy Type Policy Effective Date Expiration Date Sour ce Number MEDICAREMEDICARE PART [id number] Mike Monson AND 00:00:00 [facility] [id number] 2002[place] [facility] Problems Condition Condition Condition Status Onset Resolution Last Treating Co mments Source Name Details Category Date Date Treatment Clinician Date History of History of Disease Active 2019- [place] breast breast 03-03 [facility] cancer cancer 00:00: st 00 Allergies, Adverse Reactions, Alerts Allergy Allergy Status Severity Reaction(s) Onset Inactive Treating Comm ents Source Name Type Date Date Clinician Acetamin Propensi Active Rash [place] to 02-28 Methodi [...] [facility] ins 8-30 Clear 00:00: Forbes 00 [facility] iodine DA Active U [facility] 8-30 Clear 00:00: Forbes [facility] Sulfa DA Active U 2018- [facility] (Sulfona 8-30 Clear mide 00:00: [place] Antibiot 00 [facility] prochlor DA Active U [facility] perazine 8-30 Clear 00:00: Forbes 00 [facility] droperid DA Active U 2018- [facility] ol 8-30 Clear 00:00: Forbes 00 [facility] soap DA Active U 2018-0 [facility] 8-30 Clear 00:00: Forbes 00 [facility] povidone DA Active U [facility] -iodine 8-30 Clear 00:00: Forbes 00 [facility] meperidi DA Active U 0 [facility] ne 8-30 Clear 00:00: Forbes [facility] Butorpha Propensi Active Rash [place] [...] s to drug Iodine Propensi Active Rash [place] And ty to 12-20 Methodi Iodide adverse [...] s to drug Sulfa Propensi Active Rash [place] (Sulfona ty to 12-20 Methodi mide adverse 00:00: st Antibiot reaction 00 ics) s to drug Sulfacet Adverse Active Info Not [facility] amide Reaction Available [facility] - Sodium [facility] Quinidin Adverse Active Info Not [facility] e Reaction Available [facility] - Sulfate [facility] Propoxyp Adverse Active Info Not [facility] hene HCl Reaction Available [facility] - [facility] Meperidi Adverse Active Info Not [facility] ne HCl Reaction Available [facility] Iodine Adverse Active Info Not [facility] Reaction Available [facility] Guaifene Adverse Active Info Not [facility] sin Reaction Available [facility] Droperid Adverse Active Info Not [facility] ol Reaction Available [facility] PCN Adverse Active Info Not [facility] Reaction Available [facility] MORPHINE Adverse Active Info Not [facility] Reaction Available [facility] Butorpha Adverse Active Info Not [facility] nol Reaction Available [facility] Tartrate [facility] Analgesi Adverse Active Info Not [facility] Reaction [facility] IVP dye Adverse Active Info Not [facility] Reaction Available [facility] Ciproflo Adverse Active Info Not [facility] xacin Reaction Available [facility] Family History Family Member Diagnosis Comments Start Date Stop Date Source Natural father Hypertension [place] [facility] Natural father Prostatitis [facility] ethodist Natural mother COPD [facility] thodist Natural mother Heart disease [place] [facility] Natural sister Bladder Cancer [place] [facility] Natural sister Breast cancer [facility] Social History Social Habit Start Date Stop Date Quantity Comments Source History [facility] Meth odist Alcohol Std Drinks History [facility] Meth odist Alcohol Binge Sex Assigned At [facility] ethodist Tobacco use and 2020-03-03 2020-03-03 Never used [facility] ethodist exposure 00:00:00 00:00:00 Alcohol intake 2020-03-03 2020-03-03 Lifetime [facility] thodist 00:00:00 00:00:00 non-drinker (finding) History [facility] 2019-06-02 2019-06-02 1 [place] Meth odist Alcohol Frequency 00:00:00 00:00:00 Smoking Status Start Date Stop Date Source Never smoker [place] Methodis t Medications Ordered Filled Start Stop Current Ordering Indication Dosage Frequency Signature Comments Components Source Medication Medication Date Date Medication? Clinician (SIG) Name Name DAPTOMYCIN 500mg QD Infuse 500 [place] IV 6-18 06-18 mg into a Methodi [...] [address] [facility] Allergy Allergy 03-30 [place] as needed Alanis es - 00:00: Memoria [...] Lasix Yes Shanta [address] [facility] [place] [facility] Propranolol Propranolol Yes Shanta [address] [facility] HCl HCl [place] [facility] BusPIRone BusPIRone Yes Shanta [address] HCl HCl [place] [facility] Levothyroxi Levothyroxi Yes Shanta [address] [facility] ne Sodium ne Sodium [place] on an Alanis es - empty Memoria stomach in l the Outpati morning ent Clinics Lisinopril Lisinopril Yes Shanta [address] [facility] [place] [facility] Valium Valium Yes Shanta [address] [facility] [place] as needed [facility] bid [facility] Dexilant Dexilant Yes Shanta [address] [place] [facility] K-Tab K-Tab Yes Shanta [address] [facility] [address] [place] with food [facility] Furosemide Furosemide Yes Shanta TAKE [address] [facility] [place] TABLET BY [facility] - MOUTH [facility]oria TWICE A l DAY [facility] Clin[facility] Rabeprazole Rabeprazole Yes Shanta TAKE [address] [facility] Sodium Sodium [place] TABLET BY [facility] EVERY DAY l [facility] Duloxetine Duloxetine Yes Shanta TAKE ONE [facility] HCl HCl [place] CAPSULE BY [facility]TH [facility] EVERY DAY l [facility] ent Clinics Creon Creon Shanta as [facility] 08-19 [place] directed [facility] - 00:00 [facility]oria :00 l [facility] Vital Signs Vital Name Observation Time Observation Value Comments Source Systolic blood 2020-03-03 12:30:00 106 mm[Hg] Emmanuelto n Catholic pressure Diastolic blood 2020-03-03 12:30:00 59 mm[Hg] Pedro on Catholic pressure Heart rate 2020-03-03 12:30:00 69 /min [...] Date / Time Performing Clinician Source Performed CA AN ELECTIVE 2020-03-03 08:14:30 Tyler Panchal Met alisonist ENDOTRACHEAL AIRWAY Gerber REVISION, RECONSTRUCTION, 2020-03-03 07:41:00 Vangie Agudelo BREAST Anastasiya ECG 12-LEAD 2020-02-29 11:27:32 Vangie Agudelo Me thodist Anastasiya COVID-19 QUALITATIVE PCR 2020-02-29 10:58:00 Vangie Agudelo PARTIAL THROMBOPLASTIN 2020-02-29 10:58:00 Vangie Agudelo TIME (PTT) Anastasiya PROTHROMBIN TIME WITH INR 2020-02-29 10:58:00 Vangie Agudelo Anastasiya COMPREHENSIVE METABOLIC 2020-02-29 10:58:00 Vangie Agudelo ankur Catholic PANEL Anastasiya HC COMPLETE BLD COUNT 2020-02-29 10:58:00 Vangie Agudelo W/AUTO DIFF Anastasiya ESTIMATED GFR 2020-02-29 10:58:00 Vangie Agudelo Pr thodist Anastasiya US BREAST COMPLETE 2020-01-25 11:21:31 Vangie Agudelo BILATERAL Anastasiya Plan of Care Planned Activity Planned Date Details Comments Source Future Scheduled 2022-01-24 BREAST CANCER [facility] thodist Test 00:00:00 SCREENING [code = BREAST CANCER SCREENING] Future Scheduled 2020-04-09 INFLUENZA VACCINE Toro rebollar [facility] Test 00:00:00 [code = INFLUENZA VACCINE] Future Scheduled 2020-01-29 65+ PNEUMOCOCCAL [place] [facility] Test 00:00:00 VACCINE (1 of 1 - PPSV23) [code = 65+ PNEUMOCOCCAL VACCINE (1 of 1 - PPSV23)] Future Scheduled 2005 COLONOSCOPY SCREENING Ho ankur [facility] Test 00:00:00 [code = COLONOSCOPY SCREENING] Future Scheduled 2005 SHINGLES VACCINES (#1) H maxine [facility] Test 00:00:00 [code = SHINGLES VACCINES (#1)] Future Scheduled 1976-01-29 Screening for [facility] thodist Test 00:00:00 malignant neoplasm of cervix (procedure) [code = 056842120] Future Scheduled 1971 COVID-19 VACCINE (#1) Ho ankur [facility] Test 00:00:00 [code = COVID-19 VACCINE (#1)] Encounters Start End Encounter Admission Attending Care Care Encounter Source Date/Time Date/Time Type Type Clinicians Facility Department ID 2020-05-03 Outpatient [facility] [id number] MH 08:19:[address] [facility] 2020-02-09 Outpatient MHSE MHSE [id number] MH 12:29:[address] [facility] 2020-08-31 2020-08-31 [facility] [id number] [facility] 00:00:00 00:00:00 Yvonne Viera l Outpati ent Clinics 2020-08-02 2020-08-02 Outpatient [facility] [id number] [facility] Outpati ent Clinics 2020-07-28 2020-07-28 [facility] [id number] 2020-04-27 2020-04-27 [facility] [id number] 10:20:00 10:20:00 [facility] Medicine Outpati ent Clinics 2020-03-03 2020-03-03 Outpatient WEGGE, [place] [id number] 390 [place] 00:00:00 00:00:00 VANGIE 989 [facility] 2020-02-29 2020-02-29 Outpatient WEGGE, [facility] [id number] 286 [place] 00:00:00 00:00:00 VANGIE 354 [facility] 2020 2020 [facility] [id number] 13:00:00 13:00:00 [facility] Medicine Outpati ent Clinics 2020-01-26 2020-01-26 [facility] [id number] 15:09:00 15:09:00 [facility] Medicine Outpati ent Clinics 2020-01-25 2020-01-25 Outpatient WEMATEO, [facility] [id number] [address] [place] [address] 00:00:00 00:00:00 VANGIE 552 Met [facility] 2019-12-28 2019-12-28 [facility] [id number] 13:00:00 13:00:00 [facility] Medicine Outpati ent Clinics 2019-09-28 2019-09-28 [facility] [id number] 16:00:00 16:00:00 [facility] Medicine Outpati ent Clinics 2019-08-14 2019-08-14 [facility] [id number] 13[facility]22:00 13:22:00 [facility] Medicine Outpati ent Clinics 2019-07-30 2019-07-30 [facility] [id number] 08:57:00 08:57:00 t [facility] Outpati ent Clinics 2019-06-25 2019-06-25 [facility] [id number] 08:40:00 08:40:00 t [facility] Outpati ent Clinics 2019-05-14 2019-05-14 [facility] [id number] 09:07:00 09:07:00 t Specialty/U Annamaria kes - Specialty rology Memori a /Urology Clinic l Clinic Outpati ent Clinics 2019-05-12 2019-05-12 [facility] [id number] 08:10:00 08:10:00 t Specialty/U Annamaria kes - Specialty rology Memori a /Urology Clinic l Clinic Outpati ent Clinics 2019-05-12 2019-05-12 [facility] [id number] 08:06:00 08:06:00 t Specialty/U Annamaria kes - Specialty rology Memori a /Urology Clinic l Clinic Outpati ent Clinics 2019-04-20 2019-04-20 [facility] [id number] 10:21:00 10:21:00 t Specialty/U Annamaria kes - Specialty rology Memori a /Urology Clinic l Clinic Outpati ent Clinics 2019-04-13 2019-04-13 [facility] [id number] 09:49:00 09:49:00 t Specialty/U Annamaria kes - Specialty rology Memori a /Urology Clinic l Clinic Outpati ent Clinics 2019-04-07 2019-04-07 [facility] [id number] 10:00:00 10:00:00 t Specialty/U Annamaria kes - Specialty rology Memori a /Urology Clinic l Clinic Outpati ent Clinics 2019-04-01 2019-04-01 [facility] [id number] 17:17:00 17:17:00 t [facility] Outpati ent Clinics 2019-03-30 2019-03-30 Outpatient Topher Mustafa [id number] 14:00:00 14:00:00 t [facility] ent [facility] 2019-03-30 2019-03-30 Outpatient Topher Mustafa [id number] 09:29:00 09:29:00 t Specialty/U Annamaria kes - Specialty rology [facility] a /Urology Clinic l [facility] ent [facility] 2019-03-25 2019-03-25 Outpatient Topher Obandot [id number] 11:00:00 11:00:00 t [facility] 2019-02-06 2019-02-06 Outpatient MHBL [facility]BL [id number] [facility]BL 05:11:00 05:11:00 Results Test Test Test Results Result Source Description Time Comments Comments Airway Tyler Panchal [place]ER 03/03/2020 8:15 Catholic 08:14:30 AMAirwayDate/Time: 03/03/2020 7:52 AMPerformed by: Tyler Panchal CRNAAuthorized by: Negro Balderas MD Location: ORUrgency: [facility] Airway: No Resident/SHEATHER/AA: Tyler Panchal, CRNAPerformed by: resident/SHEATHER/AAPreoxygen ated with 100% O2: Yes C-spine Precautions [...] (test code = Negative results do not 7429929) preclude 2019-nCoV infection and should not be used as the sole basis for treatment or other patient management decisions. Negative results must be combined with clinical observations, patient history, and epidemiological information. COVID-19 qualitative PCR Not-Detected Not-Detected result (test code = 47262-2) COVID-19 qualitative PCR See link below for PDF Lab Case Number: (test code = 7070) Report [id number] Severino MethodistECG 12 [id number] 16:46:36 Test Item Value Reference Range Interpretation Comments Ventricular rate (test 57 code = 253) Atrial rate (test code 114 = 255) CA interval (test code 170 = 266) QRSD [...] 2nd degree AV block- Severino MethodistComprehensive metabolic [id number] 12:21:23 Test Item Value Reference Range Interpretation Comments Sodium (test code = 144 135- 148 mEq/L 2951-2) Potassium (test code = 3.5 3.5- 5.0 mEq/L 2823-3) Chloride (test code = 101 98- 112 mEq/L 5-0) CO2 (test code = 31 24- 31 mEq/L 2027-9) Anion gap (test code = 12@ANIO 7- 15 mEq/L 78330-6) BUN (test code = 14 mg/dL 8-23 3094-0) Creatinine (test code = 0.80 mg/dL 0.5-0.9 2160-0) Glucose (test code = 94 mg/dL 65-99 2345-7) Calcium (test code = 9.6 mg/dL 8.8-10.2 45331-3) Protein (test code = 7.6 g/dL 6.3-8.3 [...] ALT (test code = 13 U/L 5-50 1741-6) Total bilirubin (test 0.5 mg/dL 0-1.2 code = 1974-) Maycol MethodistEstimated [id number] 12:21:23 Test Item Value Reference Range Interpretation Comments Estimated GFR (test 77 mL/min/1.73 m2 [facility] orThe [employer] Units code = 5488) InterpretationG 1 >=90 Normal or highG2 60-89 Mildly fmdbvtndzO5q 45-59 Mildly to mode rately ytujvgiziP9f 30-44 Moderately to severely decreasedG4 15-29 Severely decre asedG5 <15 Kidn ey failureThe eGFR was calculated usin g the Chronic Kidney Disease Epidemiology Co llaboration (CKD-EPI) equat ion. Interpretation is based on recommendations of the National Kidney Foundation-Kidn ey Disease Outcomes Qualit y Initiative (NKF-KDOQI) pub lished in 2014. Maycol CalderonistProthrombin time with [id number] 12:13:09 Test Item Value Reference Range Interpretation Comments Prothrombin time (test 13.4 11.5- 14.5 sec code = 5902-2) INR (test code = 1.0 The Interna tional 26306-1) Normalized Rati o (INR) is a therapeutic m onitoring tool for patien ts who are stable on oral anticoagulant t herapy. An INR of 2.0-3.0 is suggested for d eep vein thrombosis/pulm onary embolism. Maycol MethodistPartial thromboplastin time, [id number] 12:13:09 Test Item Value Reference Range Interpretation Comments PTT (test code = 42.1 23.0- 36.0 sec H PTT thera peutic range 55434-9) for unfractiona en heparin is61.0- 112.0 seconds which corresponds to Anti-Xa0.3-0.7 U/ml. Lab Interpretation Abnormal (test code = 37971-2) Severino MethodistCBC with platelet and [id number] 12:09:32 Test Item Value Reference Range Interpretation Comments WBC (test code = 09686-3) 5.40 4.50- 11.00 k/uL RBC (test code = 98378-3) 4.87 m/uL 4.2-5.5 HGB (test code = 718-7) 12.3 g/dL 12-16 HCT (test code = 4544-3) 40.0 % 37-47 MCV (test code = 787-2) 82.1 fL 82-100 MCH (test code = 785-6) 25.3 pg 27-34 L MCHC (test code = 786-4) 30.8 g/dL 31-37 L RDW - SD (test code = 00972-3) 41.5 fL 37-55 MPV (test code = 37205-2) 11.0 fL 8.8-13.2 Platelet count (test code = 283 150- 400 k/uL 30973-5) Nucleated RBC (test code = 0.00 /100 WBC 76292-8) Neutrophils (test code = 91650-0) 62.0 % 39-69 Lymphocytes (test code = 24467-1) 30.0 % 25-45 Monocytes (test code = 95659-6) 6.3 % 0-10 Eosinophils (test code = 32876-6) 1.3 % 0-5 Basophils (test code = 01896-4) 0.2 % 0-1 Lab Interpretation (test code = Abnormal 63399-2) Maycol LinUS Breast Complete [id number] 11:37:40PROCEDURE: US BREAST COMPLETE BILATERALBilateral real-time chest [...] with the patient. BI- RADS 1: NEGATIVE UMY43Zzbzbqc Catholic- [place] ABSCESS LOC COMP [id number] 11:11:00 FAX: Alicia Mejia MD [phone] [place]: St: DEP Name: JUAN F SHEIKH [facility] : 1955 Age/S: 64/F [address] [place] [address] Unit#: [id number] Loc: [place] [address] Phys: Alicia Mejia MD Acct: [id number] Dis Date: Status: DEP CLI PHONE #: [phone] Exam Date: 07/21/2019 1330 FAX #: [phone] Reason: L02.91, CUTANEOUS ABSCESS. EXAMS: CPT CODE: [id number] [place] ABSCESS LOC COMP BODY 67755 WHOLE BODY INDIUM SCAN: HISTORY: Multiple cutaneous [...] signed by: Umm Jones M.D. CC: Alicia Mjeia MD Technologist: Aurelia Marmolejo, [facility]; ... Trnscrd Date/Time/By: 07/22/2019 (1111) : By: Ranulfo/[email or web address].[email or web address] Print D/T: S: 07/22/2019 (7354) PAGE 1 Signed Report- XR SHOULDER 1 V [id number] 11:08:00 FAX: Alicia Mejia MD [phone] [place]: St: REG Name: JUAN F SHEIKH [facility] : 1955 Age/S: 64/F [address] [place] [address] Unit#: [id number] Loc: [place] [address] Phys: Alicia Mejia MD Acct: [id number] Dis Date: Status: REG [facility] PHONE #: [phone] Exam Date: 04/16/2019 1059 FAX #: [phone] Reason: PICC PLACEMENT EXAMS: CPT CODE: [id number] XR SHOULDER 1 V RT [id number] Study: - XR SHOULDER 1 V RT 04/16/2019 10:47 AM Patient Name: JUAN F SHEIKH MR: [id number] : 1955; Age: 64 years y/o Female Ordering Physician: Alicia Mejia MD Clinical Indication: PICC PLACEMENT Comparison: None RIGHT SHOULDER, 1 view: No acute fracture, dislocation, or suspicious focal osseous lesion. Right PICC line tip overlies the superior vena cava. The soft tissues are normal. Impression: Right PICC line tip overlies the superior vena cava. SL: [id number] at 1108 Reported and signed by: Ricco Moe M.D. CC: Alicia Mejia MD Technologist: RT Jero(Torres) Trnscrd Date/Time/By: 04/16/2019 (1108) : By: [email or web address] Orig Print D/T: S: 04/16/2019 (1111) PAGE 1 Signed Report
--- NOTE | 2020-09-03 17:44 | ER ---
Nurse's Notes [facility] Name: Carine Sheikh Age: 65 yrs Sex: Female : 1955 Arrival Date: 09/03/2020 Time: 15:50 Bed 12 Private MD: Esau Galindo Diagnosis: Cellulitis of chest wall-open wound, blister Presentation: 09/03 16:20 Chief complaint: Patient states: Breast surgery for wound infection 08/25/[address] akosua Galindo. Pt reports increased drainage to wound. 16:20 Acuity: AZEEM 3 aa5 16:20 Risk Assessment: Do you want to hurt yourself or someone else? Patient reports no aa5 desire to harm self or others. Onset of symptoms was August 2020. 16:20 Method Of Arrival: Ambulatory aa5 16:20 Coronavirus screen: Client denies travel out of the [place] in the last 14 days. At this aa5 time, the client does not indicate any symptoms associated with coronavirus-19. Ebola Screen: Patient negative for fever greater than or equal to 101.5 degrees Fahrenheit, and additional compatible Ebola Virus Disease symptoms. Initial Sepsis Screen: Does the patient meet any 2 criteria? No. Patient's initial sepsis screen is negative. Does the patient have a suspected source of infection? No. Patient's initial sepsis screen is negative. 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 - Social history:: Smoking status: Patient denies any tobacco usage or history of. - Family history:: not pertinent. Screenin:00 Abuse screen: Denies threats or abuse. Nutritional screening: No deficits noted. aa5 Tuberculosis screening: No symptoms or risk factors identified. Fall Risk None identified. Assessment: 18:00 General: Appears comfortable, Behavior is calm, cooperative. Pain: Complains of pain in aa5 right breast. Neuro: Level of Consciousness is awake, alert, obeys commands, Oriented to person, place, time, situation. Cardiovascular: Heart tones S1 S2 present Rhythm is regular. Respiratory: Airway is patent Respiratory effort is even, unlabored, Respiratory pattern is regular, symmetrical. GI: No signs and/or symptoms were reported involving the gastrointestinal system. : No signs and/or symptoms were reported regarding the genitourinary system. EENT: No signs and/or symptoms were reported regarding the EENT system. Derm: Skin is pink, warm \T\ dry. Wound noted to right breast, measuring approximately 2 in in diameter, granulation tissue noted, no drainage noted at this time, dry drainage noted to dressing, redness noted around wound. Blister noted approximately 1.5 in long. Smaller wound noted, measuring approximately 0.5 in diameter, with granulation tissue noted and redness around wound. Pt reports Dr. Galindo called in Clindamycin to the pharmacy but is not ready at this time. Musculoskeletal: Range of motion: intact in all extremities. 19:00 Reassessment: Patient is alert, oriented x 3, equal unlabored respirations, skin aa5 warm/dry/pink. Vital Signs: 16:20 BP 111 / 69; Pulse 85; Resp 18 S; Temp 98.9(O); Pulse Ox 98% on R/A; aa5 ED Course: 15:50 Patient arrived in ED. as 15:51 Esau Galindo MD is Private Physician. as 15:53 Dimitri Forbes MD is Attending Physician. [facility] 16:20 Arm band placed on. aa 16:20 Patient has correct armband on for positive identification. Adult w/ patient. aa5 16:25 Triage completed. aa5 17:41 Esau Galindo MD is Referral Physician. [facility] 17:52 Farideh Al, RN is Primary Nurse. aa5 18:45 Wound care: to right breast was cleaned with with saline, dressed with 4X4s, wet to dry aa5 dressing applied to wound to right breast per MD.. 19:00 No provider procedures requiring assistance completed. Patient did not have IV access aa5 during this emergency room visit. Administered Medications: 18:45 Drug: Bactroban Ointment 2 % 1 application Route: Topical; Site: wound; aa5 18:45 Drug: Clindamycin 300 mg Route: PO; aa5 18:45 Drug: Ondansetron (Zofran) 4 mg Route: PO; aa5 18:45 Drug: Clindamycin 300 mg {Note: Pt given dose to take 6 hrs from now at home per MD. .} aa5 Route: PO; Outcome: 17:44 Discharge ordered by MD. [facility] 19:00 Discharged to home ambulatory, with significant other. aa5 19:00 Condition: stable 19:00 Discharge instructions given to patient, Instructed on discharge instructions, follow up and referral plans. medication usage, wound care, Demonstrated understanding of instructions, follow-up care, medications, wound care, Prescriptions given X 2. 19:08 Patient left the ED. aa5 Signatures: Dimitri Forbes MD MD cha Martinez, Amelia as Farideh Al, RN RN aa5
--- NOTE | 2020-09-03 17:44 | EDPHYS ---
Physician Documentation [facility] Name: Carine Sheikh Age: 65 yrs Sex: Female : 1955 Arrival Date: 09/03/2020 Time: 15:50 Bed 12 Private MD: Esau Galnido ED Physician Dimitri Forbes HPI: 09/03 17:33 This 65 yrs old Female presents to ER via Ambulatory with complaints of norberto Incisional Drainage, Incision Problem. 17:33 The patient presents with cellulitis of the . Description: draining, erythematous. norberto Onset: The symptoms/episode began/occurred 3 day(s) ago. Associated signs and symptoms: Pertinent positives: discharge, drainage, swelling. Modifying factors: the symptoms are alleviated by remaining still, warm soaks, the symptoms are aggravated by pressure. Severity of symptoms: At their worst the symptoms were mild, in the emergency department the symptoms are actually worse, mildly. 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 - Social history:: Smoking status: Patient denies any tobacco usage or history of. - Family history:: not pertinent. ROS: 17:33 Constitutional: Negative for fever, chills, and weight loss, Eyes: Negative for injury, norberto pain, redness, and discharge, ENT: Negative for injury, pain, and discharge, Neck: Negative for injury, pain, and swelling, Cardiovascular: Negative for chest pain, palpitations, and edema, Respiratory: Negative for shortness of breath, cough, wheezing, and pleuritic chest pain, Abdomen/GI: Negative for abdominal pain, nausea, vomiting, diarrhea, and constipation, Back: Negative for injury and pain, : Negative for injury, bleeding, discharge, and swelling, Neuro: Negative for headache, weakness, numbness, tingling, and seizure, Psych: Negative for depression, anxiety, suicide ideation, homicidal ideation, and hallucinations, Allergy/Immunology: Negative for hives, rash, and allergies, Endocrine: Negative for neck swelling, polydipsia, polyuria, polyphagia, and marked weight changes. 17:33 MS/extremity: Negative for acute changes. 17:33 Skin: Positive for erythema, swelling. Exam: 17:33 Constitutional: This is a well developed, well nourished patient who is awake, alert, norberto and in no acute distress. Head/Face: Normocephalic, atraumatic. Eyes: Pupils equal round and reactive to light, extra-ocular motions intact. Lids and lashes normal. Conjunctiva and sclera are non-icteric and not injected. Cornea within normal limits. Periorbital areas with no swelling, redness, or edema. ENT: Nares patent. No nasal discharge, no septal abnormalities noted. Tympanic membranes are normal and external auditory canals are clear. Oropharynx with no redness, swelling, or masses, exudates, or evidence of obstruction, uvula midline. Mucous membranes moist. Neck: Trachea midline, no thyromegaly or masses palpated, and no cervical lymphadenopathy. Supple, full range of motion without nuchal rigidity, or vertebral point tenderness. No Meningismus. Chest/axilla: Normal chest wall appearance and motion. Nontender with no deformity. No lesions are appreciated. Cardiovascular: Regular rate and rhythm with a normal S1 and S2. No gallops, murmurs, or rubs. Normal PMI, no JVD. No pulse deficits. Respiratory: Lungs have equal breath sounds bilaterally, clear to auscultation and percussion. No rales, rhonchi or wheezes noted. No increased work of breathing, no retractions or nasal flaring. Abdomen/GI: Soft, non-tender, with normal bowel sounds. No distension or tympany. No guarding or rebound. No evidence of tenderness throughout. Back: No spinal tenderness. No costovertebral tenderness. Full range of motion. Female : Normal external genitalia. MS/ Extremity: Pulses equal, no cyanosis. Neurovascular intact. Full, normal range of motion. Neuro: Awake and alert, GCS 15, oriented to person, place, time, and situation. Cranial nerves II-XII grossly intact. Motor strength 5/5 in all extremities. Sensory grossly intact. Cerebellar exam normal. Normal gait. Psych: Awake, alert, with orientation to person, place and time. Behavior, mood, and affect are within normal limits. 17:33 Skin: Appearance: Color: normal in color, abscess, not appreciated, cellulitis, that is minimal, induration, that is mild is noted, rash a mild rash is noted. Vital Signs: 16:20 BP 111 / 69; Pulse 85; Resp 18 S; Temp 98.9(O); Pulse Ox 98% on R/A; aa5 MDM: 17:33 Differential diagnosis: abscess, cellulitis. Data reviewed: vital signs, nurses notes. [facility] Data interpreted: library monitor: not applicable for this patient encounter. Pulse oximetry: is not applicable for this patient encounter. Counseling: I had a detailed discussion with the patient and/or guardian regarding: the historical points, exam findings, and any diagnostic results supporting the discharge/admit diagnosis. Physician consultation: Esau Galindo MD and will see patient in office. 17:44 Patient medically screened. [facility] 09/03 17:32 Order name: Wound dressing: damp to dry; Complete Time: 19:[address] [facility] Administered Medications: 18:45 Drug: Bactroban Ointment 2 % 1 application Route: Topical; Site: wound; aa5 18:45 Drug: Clindamycin 300 mg Route: PO; aa5 18:45 Drug: Ondansetron (Zofran) 4 mg Route: PO; aa5 18:45 Drug: Clindamycin 300 mg {Note: Pt given dose to take 6 hrs from now at home per MD. .} aa5 Route: PO; Disposition: 09/03/20 17:44 Discharged to Home. Impression: Cellulitis of chest wall - open wound, blister. - Condition is Stable. - Discharge Instructions: Cellulitis, Adult, Delayed Wound Closure, Cellulitis, Adult, [id number], Wound Packing. - Prescriptions for Bactroban 2 % Topical Ointment - Apply to affected area 1 application by TOPICAL route every 12 hours; 30 gram. Zofran 4 mg Oral Tablet - take 1 tablet by ORAL route every 12 hours As needed; 20 tablet. - Medication Reconciliation Form, Thank You Letter, Antibiotic Education, Prescription Opioid Use form. - Follow up: Esau Galindo MD; When: 2 - 3 days; Reason: Recheck today's complaints, Continuance of care, Re-evaluation by your physician. - Problem is new. - Symptoms have improved. Signatures: Dimitri Forbes MD MD cha Calderon, Audri, RN RN aa5 Corrections: (The following items were deleted from the chart) 19:08 17:44 09/03/2020 17:44 Discharged to Home. Impression: Cellulitis of chest wall - open aa5 wound, blister. Condition is Stable. Forms are Medication Reconciliation Form, Thank You Letter, Antibiotic Education, Prescription Opioid Use. Follow up: Esau Galindo; When: 2 - 3 days; Reason: Recheck today's complaints, Continuance of care, Re-evaluation by your physician. Problem is new. Symptoms have improved. norberto
[2020-09-03] MEDS ORDERED: ONDANSETRON 4 MG (ODT) TAB ONE (18:47)
[2020-09-03] MEDS ORDERED: MUPIROCIN 2% OINT 22GM TUBE TOP ONE (18:47)
[2020-09-03 19:12] VITALS: BP 111/69; TEMP 98.9; O2SAT 98
== END 2020-09-03 19:08 | disposition home or self-care (01) ==
LOC: ER 15:48
DX: L03.313 Cellulitis of chest wall (principal); Z98.890 Other specified postprocedural states; Z88.6 Allergy status to analgesic agent; Z88.0 Allergy status to penicillin; Z88.8 Allergy status to other drugs, medicaments and biological substances; Z91.09 Other allergy status, other than to drugs and biological substances; Z88.1 Allergy status to other antibiotic agents; Z88.2 Allergy status to sulfonamides
CPT/HCPCS: 99283

== ENCOUNTER 2020-12-09 07:21 | Day surgery (SDC) | payer OTHER ==
[2020-12-09] MEDS ORDERED: Ringers Lactate 1,000 ML IV ONE (08:14)
[2020-12-09 08:34] VITALS: O2SAT 100
[2020-12-09] MEDS ORDERED: NA CIT/CITRIC AC 30 ML ORAL UDC ONE (08:55)
[2020-12-09] MEDS ORDERED: propofoL 200 MG/20 ML VIAL IV ONE (09:31)
[2020-12-09] MEDS ORDERED: LIDOCAINE 1% MPF 5 ML VIAL ONE (09:31)
--- NOTE | 2020-12-09 09:45 | ENDO RPT ---
[address], [address] EGD PROCEDURE REPORT EXAM DATE: 12/09/2020 PATIENT NAME: Carine Sheikh MR#: [id number] BIRTHDATE: 1955 ATTENDING: Esau Galindo DR STATUS: outpatient CHEESE CUTTER: Elisabeth Andrade RN and Melonie Fuentes INDICATIONS: The patient is a 65 yr old Female here for an EGD due to mid epigastric abdominal pain and dysphagia PROCEDURE PERFORMED: EGD with biopsy for H. pylori and EGD with snare polypectomy MEDICATIONS: Per Anesthesia. TOPICAL ANESTHETIC: none CONSENT: The patient understands the risks and benefits of the procedure and understands that these risks include, but are not limited to: sedation, allergic reaction, infection, perforation and/or bleeding. Alternative means of evaluation and treatment include, among others: physical exam, x-rays, and/or surgical intervention. The patient elects to proceed with this endoscopic procedure. DESCRIPTION OF PROCEDURE: During intra-op preparation period all mechanical medical equipment was checked for proper function. Hand hygiene and appropriate measures for infection prevention was taken. Procedure, possible complications, and alternatives including but not limited to the possibility of bleeding, perforation, tear, infection, sepsis, need for surgery, need for blood transfusion, and anesthesia related complications were explained to the patient. After the risks, benefits and alternatives of the procedure were thoroughly explained, Informed consent was verified, confirmed and timeout was successfully executed by the treatment team. The patient was placed in the left lateral position. The patient was anesthetized with topical anesthesia. Through the anesthetized oropharyngeal area, the scope was passed without any difficulty. The Pentax EG-[id number] ([id number]) endoscope was introduced through the mouth and advanced to the third portion of the duodenum. Retroflexed views revealed a moderate sized hiatal hernia. The gastroscope was then slowly withdrawn and removed. Multiple erosions were found in the body and the antrum of the stomach. A biopsy for H. pylori was taken. Multiple erosions were found in the second portion of the duodenum. A biopsy for H. pylori was taken. Mild gastritis was found in the body and the antrum of the stomach. A biopsy for H. pylori was taken. A pedunculated polyp was found in the fundus. fleshy non-bleeding pedunculated Polyp was snared, then cauterized with monopolar cautery. Polyp was retrieved and sent to pathology. Mild gastritis was found in the gastroesophageal junction. Mild Gastritis in Hiatal Hernia A biopsy for H. pylori was taken. ADVERSE EVENTS: There were no complications. IMPRESSIONS: 1. Multiple erosions were found in the body and the antrum of the stomach 2. Multiple erosions were found in the second portion of the duodenum 3. Mild gastritis was found in the body and the antrum of the stomach 4. A pedunculated polyp was found in the fundus 5. Mild gastritis was found in the gastroesophageal junction RECOMMENDATIONS: 1. anti-reflux regimen 2. acid suppression therapy 3. await biopsy results 4. follow-up: office 2 week(s) 5. avoid NSAIDS 6. Carafate 1 gm po tid ac REPEAT EXAM: Return in 1 year(s) for EGD. Pending Biopsy Results Esau Galindo DR eSigned: Esau Galindo DR 12/09/2020 9:45 AM cc: CPT CODES: ICD9 CODES: PATIENT NAME: Carine Sheikh MR#: [id number]
[2020-12-09] MEDS ORDERED: ONDANSETRON 4 MG/2 ML VIAL ONE (09:55)
[2020-12-09 15:37] VITALS: TEMP 97.4
[2020-12-09 15:41] VITALS: BP 96/68
== END 2020-12-09 10:12 | disposition home or self-care (01) ==
LOC: OR 07:21
PROVIDERS: ATTEND Surgery
PROC: 0DB98ZX Excision of Duodenum, Via Natural or Artificial Opening Endoscopic, Diagnostic (ICD-10-PCS; 2020-12-09)
PROC: 0DB58ZX Excision of Esophagus, Via Natural or Artificial Opening Endoscopic, Diagnostic (ICD-10-PCS; 2020-12-09)
PROC: 0DB48ZX Excision of Esophagogastric Junction, Via Natural or Artificial Opening Endoscopic, Diagnostic (ICD-10-PCS; 2020-12-09)
PROC: 0DB68ZX Excision of Stomach, Via Natural or Artificial Opening Endoscopic, Diagnostic (ICD-10-PCS; principal; 2020-12-09 08:15)
DX: K31.7 Polyp of stomach and duodenum (principal); K21.00 Gastro-esophageal reflux disease with esophagitis, without bleeding; K29.50 Unspecified chronic gastritis without bleeding; Z20.822 Contact with and (suspected) exposure to COVID-19
CPT/HCPCS: 36415; 88313; 84132; 88305; 43251; 43239; U0003; J2704; J7120; J2405; 88312

== ENCOUNTER → 2021-02-09 | Day surgery (SDC) | payer OTHER ==
[~2021-02-09] MED LIST changes: +BUPIVACAINE 0.25% PF 30 ML VIAL ONE; +CEFAZOLIN/SWI 2gm 2 GM/20 ML SYR ONE; +FENTANYL CITR 100 MCG/2 ML ONE; +KETOROLAC 30 MG/ML INJ ONE; +LIDOCAINE 2% MPF 5 ML VIAL ONE; +MIDAZOLAM HCL 2 MG/2 ML INJ ONE; +ONDANSETRON 4 MG/2 ML VIAL ONE; +Ringers Lactate 1,000 ML IV ONE; +TRAMADOL HCL 50 MG TAB ONE; -VANCOMYCIN/NS 1 gm 1 GM/250 ML BAG IV SCH; +dexAMETHasone 10 MG/ML VIAL ONE; +dexAMETHasone 4 MG/ML VIAL ONE; +propofoL 200 MG/20 ML VIAL IV ONE
--- NOTE | 2021-02-09 17:08 | P.OP ---
Preoperative diagnosis: Necrotic LEFT chest wound Postoperative diagnosis: Necrotic LEFT chest wound Primary procedure: Debridement of LEFT chest necrotic tissue Secondary procedure: biopsy of LEFT chest chest tissue Anesthesia: GETA Estimated blood loss: <10cc Specimen: debridement tissue, full thickness skin biopsy Findings: skin necrosis with slough, full dermal thickness ~ 40 sq cm into fat Complications: None Transferred to: Recovery Room Condition: Good
--- NOTE | 2021-02-09 18:12 | OP ---
Date of Procedure: 02/09/2021 Surgeon: Esau Galindo MD, Preoperative Diagnosis: Necrotic left chest wound - recurrent. Postoperative Diagnosis: Necrotic left chest wound - recurrent. Procedure Performed: 1.Debridement of left chest necrotic tissue. 2.Biopsy of left chest skin and dermal tissue. Anesthesia: General endotracheal. Estimated Blood Loss: Less than 10 mL. Specimens: 1.Debridement tissue. 2.Full-thickness skin biopsy. Findings: 1.Skin necrosis with slough. 2.Necrosis with full dermal thickness into subcutaneous fat approximately 40 sq cm was affected and debrided. Complications: None. Disposition: The patient was transferred to recovery room in good condition. Procedure In Detail: After informed consent was obtained, the patient was brought to the operating r oom, prepped and draped in the usual sterile fashion after adequate anesthesia achieved. The area of the left chest was sharply debrided with a combination of tenotomy scissors and curette down through subcutaneous tissues and into the fat plane subcutaneously. Approximately 40 sq cm were debrided an d sent off for pathologic examination. I then took a skin biopsy full-thickness using a 15 blade isabella n through subcutaneous tissues into the fat plane and sent this off as a separate biopsy specimen. I removed 2 sutures. They were placed by previous surgeon for biopsy, which appeared to be superficia l at the edges of the breast debridement area. The wound was cleansed and hemostasis was achieved wi th electrocautery alone. The area was cleansed several times until completely dry. All necrotic tis keith was removed. I probed the area to feel for any fluid collections or drainable fluid collections, which were not appreciated at this point. I then placed sterile dressings over the top damp to dry. The patient tolerated the procedure well without evidence of complication and transferred to PACU i n good condition. All counts were correct at the end of the case. GABY/JOSE Voice ID: [id number] Report ID: [id number]
[2021-02-09 18:26] VITALS: BP 129/63; TEMP 96.5; O2SAT 98
== END | disposition home or self-care (01) ==
LOC: OR 12:08
PROVIDERS: ATTEND Surgery
PROC: 0HB5XZX Excision of Chest Skin, External Approach, Diagnostic (ICD-10-PCS; 2021-02-09)
PROC: 0KBL0ZZ Excision of Left Abdomen Muscle, Open Approach (ICD-10-PCS; principal; 2021-02-09 13:45)
DX: S21.102D Unspecified open wound of left front wall of thorax without penetration into thoracic cavity, subsequent encounter (principal); I96 Gangrene, not elsewhere classified; L08.9 Local infection of the skin and subcutaneous tissue, unspecified; Z20.822 Contact with and (suspected) exposure to COVID-19
CPT/HCPCS: 87070 ×2; 87205 ×3; 88312; 88305; 87075; 87077 ×3; 87186 ×3; 87176; 11005; 11106; U0003; J2704; J2250; J3010; J1100; J0690; J7120; J2405

== ENCOUNTER 2021-11-07 11:03 | Day surgery (SDC) | payer OTHER ==
[2021-11-07] MEDS ORDERED: Ringers Lactate 1,000 ML IV ONE (11:57)
[2021-11-07] MEDS ORDERED: LIDOCAINE 1% MPF 30 ML VIAL ONE (13:20)
[2021-11-07] MEDS ORDERED: MIDAZOLAM HCL 2 MG/2 ML INJ ONE (13:20)
[2021-11-07] MEDS ORDERED: propofoL 200 MG/20 ML VIAL IV ONE (13:20)
--- NOTE | 2021-11-07 13:45 | ENDO RPT ---
[address], [address] EGD PROCEDURE REPORT EXAM DATE: 11/07/2021 PATIENT NAME: Carine Sheikh MR#: [id number] BIRTHDATE: 1955 ATTENDING: Esau Galindo DR STATUS: outpatient FAMILY SOCIOLOGIST: Elisabeth Andrade RN and Mell Parada CST INDICATIONS: The patient is a 66 yr old Female here for an EGD due to dyspepsia, dysphagia, and epigastric pain PROCEDURE PERFORMED: EGD with biopsy for H. pylori and EGD with biopsy MEDICATIONS: Per Anesthesia. TOPICAL ANESTHETIC: none CONSENT: The patient understands the risks and benefits of the procedure and understands that these risks include, but are not limited to: sedation, allergic reaction, infection, perforation and/or bleeding. Alternative means of evaluation and treatment include, among others: physical exam, x-rays, and/or surgical intervention. The patient elects to proceed with this endoscopic procedure. DESCRIPTION OF PROCEDURE: During intra-op preparation period all mechanical medical equipment was checked for proper function. Hand hygiene and appropriate measures for infection prevention was taken. Procedure, possible complications, and alternatives including but not limited to the possibility of bleeding, perforation, tear, infection, sepsis, need for surgery, need for blood transfusion, and anesthesia related complications were explained to the patient. After the risks, benefits and alternatives of the procedure were thoroughly explained, Informed consent was verified, confirmed and timeout was successfully executed by the treatment team. The patient was placed in the left lateral position. The patient was anesthetized with topical anesthesia. Through the anesthetized oropharyngeal area, the scope was passed without any difficulty. The Pentax EG-[id number] ([id number]) endoscope was introduced through the mouth and advanced to the third portion of the duodenum. Retroflexed views revealed a moderate sized hiatal hernia. The gastroscope was then slowly withdrawn and removed. Multiple erosions were found in the body and the antrum of the stomach. A biopsy for H. pylori was taken. Mild gastritis was found in the body and the antrum of the stomach. A biopsy for H. pylori was taken. A biopsy of the GEJ was obtained to rule out Mcfarland's. A moderate sized hiatal hernia was found in the gastroesophageal junction. A biopsy of the GEJ was obtained to rule out Mcfarland's. The esophagus was otherwise normal. Evidence of prior balloon @ GEJ - scar ADVERSE EVENTS: There were no complications. IMPRESSIONS: 1. Multiple erosions were found in the body and the antrum of the stomach 2. Mild gastritis was found in the body and the antrum of the stomach 3. A moderate sized hiatal hernia was found in the gastroesophageal junction 4. The esophagus was otherwise normal. 5. Evidence of prior balloon @ GEJ - scar RECOMMENDATIONS: 1. acid suppression therapy 2. anti-reflux regimen 3. await biopsy results 4. avoid NSAIDS 5. follow-up of helicobacter pylori status, treat if indicated REPEAT EXAM: Esau Galindo DR eSigned: Esau Galindo DR 11/07/2021 1:44 PM cc: CPT CODES: ICD9 CODES: PATIENT NAME: Carine Sheikh MR#: [id number]
[2021-11-07 14:33] VITALS: BP 114/52; TEMP 98.6; O2SAT 100
== END 2021-11-07 14:21 | disposition home or self-care (01) ==
LOC: OR 11:03
PROVIDERS: ATTEND Surgery
PROC: 0DB68ZX Excision of Stomach, Via Natural or Artificial Opening Endoscopic, Diagnostic (ICD-10-PCS; 2021-11-07)
PROC: 0DB58ZX Excision of Esophagus, Via Natural or Artificial Opening Endoscopic, Diagnostic (ICD-10-PCS; 2021-11-07)
PROC: 0DB98ZX Excision of Duodenum, Via Natural or Artificial Opening Endoscopic, Diagnostic (ICD-10-PCS; principal; 2021-11-07 13:45)
DX: R13.10 Dysphagia, unspecified (principal); R10.13 Epigastric pain; Z20.822 Contact with and (suspected) exposure to COVID-19; K44.9 Diaphragmatic hernia without obstruction or gangrene; K29.50 Unspecified chronic gastritis without bleeding
CPT/HCPCS: 88312; 88305; 43239; U0003; J2704; J2250; J7120

== ENCOUNTER 2024-10-26 09:38 | Day surgery (SDC) | payer OTHER ==
[2024-10-22 13:49] LABS: Absolute Eosinophils 0.1 K/uL (0-0.5); Absolute Lymphocytes (CBC) 1.9 K/uL (0.7-4.9); Absolute Monocytes 0.6 K/uL (0.1-1.3); Absolute Neutrophil 4.2 K/uL (1.8-8.0); Basophils % 0.4 % (0-1.3); Eosinophils % 1.8 % (0-4.4); Hematocrit 32.1 % (36.0-45.0); Hemoglobin 10.8 g/dL (12.0-15.0); Lymphocytes % 27.5 % (15.3-44.8); MCH 27.7 pg (27.0-35.0); MCHC 33.8 g/dL (32.0-36.0); MPV 7.8 fL (7.6-11.3); Monocytes % 8.7 % (3.3-12.3); Neutrophils % 61.6 % (41.7-73.7); Nucleated Red Blood Cells % 0.1 % (0-0); Platelets 484 thou/uL (152-406); RBC Red Blood Cell Count 3.91 M/uL (3.86-4.86); Red Cell Distribution Width 14.4 % (12.1-15.2)
[2024-10-22 14:04] LABS: Anion Gap 7.2 mEq/L (5.0-15.0); Potassium 3.2 mEq/L (3.5-5.1)
[2024-10-26] MEDS: Ringers Lactate 1,000 ML IV ONE (10:20)
[2024-10-26] MEDS ORDERED: LIDOCAINE 1% MPF 5 ML VIAL ONE (11:03)
[2024-10-26] MEDS ORDERED: propofoL 200 MG/20 ML VIAL IV ONE (11:03)
[2024-10-26 13:10] VITALS: O2SAT 99
[2024-10-26 13:11] VITALS: BP 101/55; TEMP 99.3
== END 2024-10-26 12:33 | disposition home or self-care (01) ==
LOC: OR 09:38
PROVIDERS: ATTEND Surgery
PROC: 0DB68ZX Excision of Stomach, Via Natural or Artificial Opening Endoscopic, Diagnostic (ICD-10-PCS; 2024-10-26)
PROC: 0DB58ZX Excision of Esophagus, Via Natural or Artificial Opening Endoscopic, Diagnostic (ICD-10-PCS; 2024-10-26)
PROC: 0DB48ZX Excision of Esophagogastric Junction, Via Natural or Artificial Opening Endoscopic, Diagnostic (ICD-10-PCS; principal; 2024-10-26 12:00)
DX: R13.10 Dysphagia, unspecified (principal); R11.0 Nausea; K21.9 Gastro-esophageal reflux disease without esophagitis; K44.9 Diaphragmatic hernia without obstruction or gangrene; K21.00 Gastro-esophageal reflux disease with esophagitis, without bleeding; K29.51 Unspecified chronic gastritis with bleeding
CPT/HCPCS: 43239; 85025; 80048; 36415; J2704; J2003; J7120; 88305; 88312